=== PATIENT | male | born 1940 | race Caucasian/White ===

== ENCOUNTER → 2016-06-16 | Outpatient (CLI) | payer MEDICARE, OTHER ==
[~2016-06-16] MED LIST: *ANUSOI; ACIPHEX; ALTA10CA; ASPI81TA45; ATEN100T; CIPR500T3 PO; GLUC500T; GLUC500T3; HYOS0.378; LIPI20TA; MULTIVIT; NORV5TAB; PERCOCET PO; PRIL40CA; PROS5TAB; [UNRECOGNIZED DRUG - OTHER]
[2016-06-16 17:34] LABS: ALBUMIN 3.7 GM/DL (3.2-5.2); ANION GAP 9 MEQ/L (8-16); BLOOD UREA NITROGEN 17 MG/DL (7-18); CALCIUM LEVEL 9.2 MG/DL (8.8-10.2); CARBON DIOXIDE LEVEL 30 MEQ/L (21-32); CHLORIDE LEVEL 103 MEQ/L (98-107); GLOMERULAR FILTRATION RATE > 60.0 (>42); GLUCOSE, FASTING 175 MG/DL (83-110); MAGNESIUM LEVEL 1.8 MG/DL (1.8-2.4); PHOSPHORUS LEVEL 3.2 MG/DL (2.5-4.9); POTASSIUM SERUM 4.2 MEQ/L (3.5-5.1); SODIUM LEVEL 142 MEQ/L (136-145)
== END ==
LOC: M WUC 13:42
PROVIDERS: ATTEND Internal Medicine Cardiovascular Disease
DX: I11.9 Hypertensive heart disease without heart failure (principal); R94.31 Abnormal electrocardiogram [ECG] [EKG]

== ENCOUNTER → 2016-06-19 | Outpatient (CLI) | payer MEDICARE, BC, OTHER ==
[~2016-06-19] MED LIST changes: +ASPI1TAB24 PO; +ATEN100T PO; +ATOR40TA PO; +CHLO125TA PO; +FINA5TAB2 PO; +IRON1TAB PO; +METF500T PO; +MULT1TAB10 PO; +RAMI10CA PO; +VITA100037 PO; +VITA500T53 PO
--- NOTE | 2016-06-19 13:31 | REP ---
MRI BRAIN WITHOUT CONTRAST: HISTORY: Gait difficulty. COMPARISON: 03/13/2014. Scattered punctate areas of increased signal intensity on T2-weighted images are present in the periventricular and subcortical white matter. This represents small vessel ischemic disease. There is no intraparenchymal hemorrhage, infarct, mass or midline shift. The ventricular system and cortical sulci as well as subarachnoid space in the posterior fossa are dilated consistent with mild volume loss. There is no extracerebral collection. The sinuses are clear. IMPRESSION: 1. Minimal small vessel ischemic disease. 2. Mild volume loss. Signed by Jared Beaulieu MD 06/19/2016 01:48 P
== END ==
LOC: M RAD 11:03
PROVIDERS: ATTEND Internal Medicine Cardiovascular Disease
DX: A88.1 Epidemic vertigo (principal); I73.9 Peripheral vascular disease, unspecified

== ENCOUNTER → 2016-06-30 | Outpatient (CLI) | payer MEDICARE, BC, OTHER ==
[~2016-06-30] VITALS: Ht 180.3 cm; Wt 83.0 kg
[~2016-06-30] MED LIST changes: +PROPOFOL 200 MG/20 ML VIAL As Ordered ONE; +ePHEDrine SULFATE 25 MG/5 ML(5MG/ML) SYRINGE As Ordered ONE
--- NOTE | 2016-06-30 14:03 | ROOR ---
Patient Name: Roberth Bang Procedure Date: 06/30/2016 1:26 PM Date of : 1940 Age: 75 Room: [facility] Gender: Male Note Status: Finalized Procedure: Colonoscopy Indications: High risk colon cancer surveillance: Personal history of colonic polyps, Last colonoscopy: June 2013, Known radiation enteritis and colitis, known radiation related stricture mid sigmoid. Known radiation proctitis. Providers: Montrell GARCIA MD Referring MD: Roberth Dawson MD Requesting Provider: Medicines: Monitored Anesthesia Care Complications: No immediate complications. Procedure: Pre-Anesthesia Assessment: - The heart rate, respiratory rate, oxygen saturations, blood pressure, adequacy of pulmonary ventilation, and response to care were monitored throughout the procedure. The Colonoscope was introduced through the anus and advanced to the cecum, identified by appendiceal orifice and ileocecal valve. The colonoscopy was performed without difficulty. The patient tolerated the procedure well. The quality of the bowel preparation was good. Findings: The perianal and digital rectal examinations were normal. (Exam: Complete, Prep: Good or Excellent.) A benign-appearing, intrinsic moderate stenosis measuring 3 cm (in length) was found in the mid sigmoid colon. - This is passable only with Enteroscope (Pediatric colonoscope will not pass). Biopsies were taken with a cold forceps for histology. A 4 mm polyp was found in the cecum. The polyp was flat. The polyp was removed with a cold snare. Resection and retrieval were complete. A few medium-mouthed diverticula were found in the sigmoid colon. A few petechiae were found in the distal rectum. Impression: - Smooth benign appearing stricture in the mid sigmoid colon-at 25 cm from anal verge. - This is passable with Enteroscope (Pediatric colonoscope will not pass). Biopsied. - One 4 mm polyp in the cecum, removed with a cold snare. Resected and retrieved. - Diverticulosis in the sigmoid colon. - Moderate internal hemorrhoids and a few petechia(e) in the distal rectum suggestive of mild residual radiation proctitis. Recommendation: - Telephone endoscopist for pathology results in 2 weeks. - Observe clinical course/symptoms of colonic stricture. Surgical management for severe symptoms. Montrell Garcia MD Montrell GARCIA MD 06/30/2016 2:03:27 PM This report has been signed electronically. Number of Addenda: 0 Note Initiated On: 06/30/2016 1:26 PM Estimated Blood Loss: Estimated blood loss: none.
[2016-06-30 14:36] VITALS: BP 156/67
== END | disposition home or self-care (01) ==
LOC: M OPP 11:06
PROVIDERS: ATTEND Internal Medicine Gastroenterology
DX: Z12.11 Encounter for screening for malignant neoplasm of colon (principal); K56.69 Other intestinal obstruction; D12.0 Benign neoplasm of cecum; I35.9 Nonrheumatic aortic valve disorder, unspecified; I25.10 Atherosclerotic heart disease of native coronary artery without angina pectoris; I10 Essential (primary) hypertension; I05.9 Rheumatic mitral valve disease, unspecified; D64.9 Anemia, unspecified; Z87.891 Personal history of nicotine dependence; Z79.899 Other long term (current) drug therapy; Z79.82 Long term (current) use of aspirin; Z79.84 Long term (current) use of oral hypoglycemic drugs; Z88.8 Allergy status to other drugs, medicaments and biological substances

== ENCOUNTER 2016-08-30 08:10 | Inpatient (IN) | payer MEDICARE, BC, OTHER ==
[~2016-08-30] VITALS: Ht 177.8 cm; Wt 81.0 kg
[~2016-08-30 08:10] MED LIST changes: -PROPOFOL 200 MG/20 ML VIAL As Ordered ONE; -ePHEDrine SULFATE 25 MG/5 ML(5MG/ML) SYRINGE As Ordered ONE
[2016-08-30] MEDS ORDERED: NS 1,000 ML IV SCH (08:54)
[2016-08-30] MEDS ORDERED: ONDANSETRON 4MG/2ML VIAL (J2405) IV ONE ×2 (09:00→12:00)
[2016-08-30] MEDS: PANTOPRAZOLE 40MG INJ (PROTONIX) (C9113) IV SCH (09:00)
[2016-08-30 09:24] LABS: BASO % 0.2 % (0.0-1.0); EOS % 0.2 % (0.0-3.0); LARGE UNSTAINED CELL # 0.2 K/mm3 (0.0-0.4); LARGE UNSTAINED CELL % 2.6 % (0.0-4.0); LYMPH # 0.4 K/mm3 (1.5-4.5); LYMPH % 4.5 % (24.0-44.0); MEAN CORPUSCULAR HGB CONC 33.1 g/dl (32.0-36.5); MEAN CORPUSCULAR VOLUME 87.6 fl (80.0-96.0); MONO # 0.7 K/mm3 (0.0-0.8); MONO % 7.8 % (0.0-5.0); NEUTROPHILS # 7.3 K/mm3 (1.8-7.7); NEUTROPHILS % 84.7 % (36.0-66.0); PLATELET COUNT, AUTOMATED 182 k/mm3 (150-450); RED CELL DISTRIBUTION WIDTH 17.3 % (11.5-14.5); WHITE BLOOD COUNT 8.6 K/mm3 (4.0-10.0)
[2016-08-30 09:35] LABS: ALBUMIN 4.1 GM/DL (3.2-5.2); ALBUMIN/GLOBULIN RATIO 1.08 (1.00-1.93); ALKALINE PHOSPHATASE 54 U/L (45-117); ALT/SGPT 24 U/L (12-78); ANION GAP 8 MEQ/L (8-16); AST/SGOT 12 U/L (15-37); BILIRUBIN,DIRECT 0.4 MG/DL (0.0-0.2); BILIRUBIN,TOTAL 2.1 MG/DL (0.2-1.0); BLOOD UREA NITROGEN 22 MG/DL (7-18); CALCIUM LEVEL 9.7 MG/DL (8.8-10.2); CARBON DIOXIDE LEVEL 32 MEQ/L (21-32); CHLORIDE LEVEL 100 MEQ/L (98-107); CREATININE FOR GFR 1.23 MG/DL (0.70-1.30); GLOMERULAR FILTRATION RATE > 60.0 (>42); GLUCOSE, FASTING 218 MG/DL (83-110); POTASSIUM SERUM 3.9 MEQ/L (3.5-5.1); SODIUM LEVEL 140 MEQ/L (136-145); TOTAL PROTEIN 7.9 GM/DL (6.4-8.2)
[2016-08-30] MEDS ORDERED: GASTROGRAFIN SOLUTION 30ML PO ONE (10:29)
[2016-08-30] MEDS ORDERED: GASTROGRAFIN SOLUTION 30ML (Q9963) As Ordered ONE (10:51)
[2016-08-30] MEDS ORDERED: GASTROGRAFIN SOLUTION 30ML (Q9963) PO ONE (10:55)
[2016-08-30] MEDS ORDERED: KETOROLAC 30 MG/ML VIAL (J1885) IV ONE (13:15)
[2016-08-30] MEDS ORDERED: HEPARIN SOD (PORCINE) 5000 UNITS/ML VIAL SC SCH (14:00)
[2016-08-30] MEDS ORDERED: RANI150T PO (14:52)
[2016-08-30] MEDS: hydrALAZINE INJ 20 MG/ML VIAL IV SCH ×3 (15:00→23:00)
[2016-08-30] MEDS ORDERED: GLUCAGON FOR INJ 1 MG VIAL (J1610) SC PRN (15:15)
[2016-08-30] MEDS ORDERED: DEXTROSE 50% 50 ML SYRINGE IV PRN (15:15)
[2016-08-30] MEDS ORDERED: GLUCOSE 4 GM CHEW TABLET PO PRN (15:15)
--- NOTE | 2016-08-30 15:27 | REP ---
ABDOMEN, FLAT/UPRIGHT, PA CHEST: HISTORY: Abdominal pain. Air is present in small and large intestine. Several air-fluid levels are present. There are several minimally dilated loops of intestine. There is no pneumoperitoneum. The lungs are clear. IMPRESSION: The above findings may represent ileus or possibly early or intermittent small bowel obstruction. Signed by Jared Beaulieu MD 08/30/2016 03:30 P
--- NOTE | 2016-08-30 15:38 | HPEPDOC ---
General Date of Admission Aug 30, 2016 at 14:45 Primary Care Physician: Roberth Dawson MD Attending Physician: VALE BROOKE MD Chief Complaint The patient is a 75-year-old male admitted with a reason for visit of Small Bowel Obstruction. Source: Patient, Old records Exam Limitations: No limitations Timing/Duration: Day(s), Getting worse Severity: Severe Associated Symptoms: Nausea, Vomiting History of Present Illness This is a 75-year-old patient of Dr. Roberth Dawson with a history of coronary artery disease status post CABG, [id number] diabetes, hypertension, hyperlipidemia, and prostate cancer status post radiation therapy who presented to the ER 08/30/2016 after 4 days of nausea and vomiting. He states that he developed nausea and vomiting on , and inability to take oral intake. He had associated generalized colicky abdominal pain, 4 out of 10. Pain is nonradiating. He noted no remitting exacerbating factors, he did not try anything for treatment. He developed abdominal distention, and decided to go to the ER. Due to his radiation proctitis, he generally has chronic diarrhea , and generally has to take Imodium to avoid loose or diarrheal stools. However , he only recently had a small hard stool. He reports no recent diarrhea. He denies any fevers, chills, sweats, or sick contacts. Home Medications Scheduled (Aspirin Adult Low Dose) 81 Mg Tab, 81 MG PO BID, (Reported) (Iron) 45 Mg Tab, 65 MG PO DAILY, (Reported) Atenolol (Atenolol) 100 Mg Tab, 100 MG PO DAILY, (Reported) Atorvastatin Calcium (Atorvastatin Calcium) 40 Mg Tab, 40 MG PO QHS, (Reported) Chlorthalidone (Chlorthalidone) 12.5 Mg Halftab, 12.5 MG PO 3XW, (Reported) MON,WED,FRI Cyanocobalamin (Vitamin B12) 500 Mcg Tab, 500 MCG PO DAILY, (Reported) Finasteride (Finasteride) 5 Mg Tab, 2.5 MG PO DAILY, (Reported) Metformin Hydrochloride (Metformin HCl) 500 Mg Tab, 500 MG PO BID, (Reported) Multivitamins (Multivitamin Adults) 1 Tab Tab, 1 TAB PO DAILY, (Reported) Ramipril (Ramipril) 10 Mg Cap, 10 MG PO DAILY, (Reported) Vitamin D (Vitamin D) Unknown Strength Cap, 50,000 UNITS PO Q2WK, (Reported) WEDNESDAYS Scheduled PRN Ranitidine HCl (Ranitidine HCl) 150 Mg Tab, 1 TAB PO DAILY PRN for INDIGESTION, (Reported) Allergies Coded Allergies: Contrast Media (Verified Allergy, Intermediate, ivp dye- hives, rash, 08/30) has had gastrografin in past with no issues Propoxyphene (Unverified Adverse Reaction, Mild, UPSET STOMACH, 08/30/16) Past Medical History Medical History Past medical history: 1. Coronary artery disease status post CABG 2. Xll-jibmkcd-[id number] type 2 diabetes 3. Hypertension 4. Hypertensive heart disease without heart failure 5. Vitamin B-12 deficiency anemia 6. Vitamin D deficiency 7. Chronic anemia 8. Radiation proctitis 9. History of kidney stones 10. 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 Bilateral Inguinal hernia repair 1961 2. Right hernia repair 1975 3. Prostate biopsy 2007 4. Ocular surgery for right retinal detachment 2007 5. PCI with stent to LAD 2000 6. CABG 2003 7. Bilateral cataract surgery 2003 8. EGD for/colonoscopy 2009 9. EGD 2010 10. Cystoscopy with laser lithotripsy for left ureteral stone 2015 Family History Significant Family History: No pertinent family hx Social History * Smoker: non-smoker Alcohol: Denies Drugs: denies Recent Travel/Sick Contacts: Denies: Recent travel, Recent sick contacts Psychosocial History: No pertinent psych hx Lives with Review of Symptoms Constitutional: Denies: Chills, Fever, Malaise, Weakness, Fatigue Eyes: Denies: Vision change ENT: Denies: Head Aches Skin: Denies: Rash, Lesions Pulmonary: Denies: Dyspnea, Cough Cardiovascular: Denies: Chest Pain, Palpitations, Orthopnea Gastrointestinal: Reports: Nausea, Vomiting, Abdominal Pain, Denies: Diarrhea, Constipation Genitourinary: Denies: Dysuria Other systems 10 point review systems otherwise negative Physical Examination General Exam: Positive: Alert, Cooperative, No Acute Distress Eye Exam: Positive: Conjunctiva & lids normal, Negative: Sclera icteric ENT Exam: Positive: Atraumatic, Mucous membr. moist/pink Neck Exam: Positive: Supple, Negative: JVD, thyromegaly, Lymphadenopathy Chest Exam: Positive: Clear to auscultation, Normal air movement, Other ( midline sternotomy scar), Negative: Rales, Rhonchi, Wheezing Heart Exam: Positive: Rate Normal, Regular Rhythm, Normal S1, Normal S2, Murmurs (2/6 systolic ejection murmur) Abdomen Exam: Positive: BS Hyperactive, Soft, Negative: Tenderness Extremity Exam: Positive: Normal pulses, Negative: Clubbing, Cyanosis, Edema Skin Exam: Positive: Nl turgor and temperature, Negative: Rash, Breakdown Psych Exam: Positive: Mental status NL, Mood NL, Oriented x 3 Vital Signs Vital Signs Date Time Temp Pulse Resp B/P (MAP) Pulse Ox O2 Delivery O2 Flow Rate FiO2 08/30/16 13:40 104 87 08/30/16 13:39 153/68 (96) 08/30/16 12:39 99.7 16 08/30/16 08:16 Room Air Laboratory Data Labs 24H Laboratory Tests 2 08/30/16 09:03: White Blood Count 8.6, Red Blood Count 4.74, Hemoglobin 13.8L, Hematocrit 41.5L , Mean Corpuscular Volume 87.6, Mean Corpuscular Hemoglobin 29.0, Mean Corpuscular Hemoglobin Concent 33.1, Red Cell Distribution Width 17.3H, Platelet Count 182, Neutrophils (%) (Auto) 84.7H, Lymphocytes (%) (Auto) 4.5L, Monocytes (%) (Auto) 7.8H, Eosinophils (%) (Auto) 0.2, Basophils (%) (Auto) 0.2 , Neutrophils # (Auto) 7.3, Lymphocytes # (Auto) 0.4L, Monocytes # (Auto) 0.7, Eosinophils # (Auto) 0.0, Basophils # (Auto) 0.0, Large Unclassified Cells % 2.6 , Large Unclassified Cells # 0.2, Anion Gap 8, Glomerular Filtration Rate > 60.0 , Lactic Acid Level 2.6*H, Calcium Level 9.7, Aspartate Amino Transf (AST/SGOT) 12L, Alanine Aminotransferase (ALT/SGPT) 24, Alkaline Phosphatase 54, Total Bilirubin 2.1H, Direct Bilirubin 0.4H, Total Protein 7.9, Albumin 4.1, Albumin/ Globulin Ratio 1.08, Lipase 79 CBC/BMP Laboratory Tests 08/30/16 09:03 Red Blood Count 4.74, Mean Corpuscular Volume 87.6, Mean Corpuscular Hemoglobin 29.0, Mean Corpuscular Hemoglobin Concent 33.1, Red Cell Distribution Width 17.3 H, Neutrophils (%) (Auto) 84.7 H, Lymphocytes (%) (Auto) 4.5 L, Monocytes ( %) (Auto) 7.8 H, Eosinophils (%) (Auto) 0.2, Basophils (%) (Auto) 0.2, Neutrophils # (Auto) 7.3, Lymphocytes # (Auto) 0.4 L, Monocytes # (Auto) 0.7, Eosinophils # (Auto) 0.0, Basophils # (Auto) 0.0 Assessment/Plan This is a 75-year-old gentleman admitted to the hospital 08/30/2016 for SBO Problems (1) SBO (small bowel obstruction) Status: Acute Problem Text: Multiple dilated loops of small bowel with air-fluid level. Patient has history of radiation therapy for prostate cancer, otherwise no history of abdominal surgery. Nonacute abdomen. No fevers or leukocytosis. Dr. Evans following. Patient has mild lactic acidosis likely secondary to dehydration and no by mouth intake since . He has no signs or symptoms of sepsis, thus sepsis protocol does not apply in his case. -Admit to PCU due to need for IV hypertensive medications as patient is unable to take by mouth meds -NG tube for decompression -Nothing by mouth -Surgery following -Continue IV fluids (2) HTN (hypertension) Status: Chronic Problem Text: Unable to take by mouth meds. Nursing is unable to do IV blood pressure management on the floor. Given patient's strong cardiac history, it would not be prudent to continue holding his blood pressure medicines. -Scheduled IV hydralazine 10 mg every 4 hours with holding parameters. Blood pressure is less than 150 systolic (3) HLD (hyperlipidemia) Status: Chronic Problem Text: Holding statin, as patient is nothing by mouth, and has NG tube in place (4) T2DM (type 2 diabetes mellitus) Problem Text: Holding metformin as patient currently has NG tube in place -Sliding scale insulin (5) Ureterolithiasis Status: Acute Problem Text: History of laser lithotripsy. Current nephrolithiasis, with 4 mm , nonobstructing stone with some hydronephrosis. Currently no symptoms. -Start Flomax after patient is taking oral medication - Would need to consult urology only if patient develops worsening symptoms or infected urine Plan / VTE VTE Prophylaxis Ordered?: Yes Plan Disposition Pending resolution of SBO, tolerating diet VALE BROOKE MD Aug 30, 2016 15:38
[2016-08-30] MEDS ORDERED: ONDANSETRON 4MG/2ML VIAL (J2405) IV PRN (15:45)
[2016-08-30] MEDS ORDERED: MORPHINE 2 MG/ML 1ML SYRINGE IV PRN (15:45)
[2016-08-30] MEDS ORDERED: ACETAMINOPHEN 650 MG SUPP PR PRN (15:45)
[2016-08-30] MEDS ORDERED: HumaLOG INSULIN (NovoLOG) PER UNIT SC SCH ×2 (17:30→21:00)
[2016-08-30 18:00] VITALS: BP 158/56
[2016-08-30] MEDS: HumaLOG INSULIN (NovoLOG) PER UNIT SC SCH (18:53)
--- NOTE | 2016-08-30 19:50 | REPUSA ---
Clinical statement: tube placement. Comparison: None. Findings: 2 views of the abdomen were obtained. A nasogastric tube is appreciated, with the tip in th e distal stomach. A nonobstructive bowel gas pattern is noted. There is normal amount of stool appre ciated within the colon. There is no free air. There are no abnormal masses or calcifications. The os seous structures and soft tissues are unremarkable. Impression: No acute finding. Nasogastric tube tip is within the distal stomach.
[2016-08-30 20:11] VITALS: BP 126/64
[2016-08-30] MEDS: NS 1,000 ML IV SCH (21:00)
[2016-08-31] VITALS (9 sets, daily range): BP systolic 118–170; BP diastolic 58–79
[2016-08-31] MEDS: HumaLOG INSULIN (NovoLOG) PER UNIT SC SCH ×5 (00:23→23:59)
[2016-08-31] MEDS: hydrALAZINE INJ 20 MG/ML VIAL IV SCH ×6 (03:00→23:00)
[2016-08-31 05:24] LABS: ANION GAP 6 MEQ/L (8-16); BLOOD UREA NITROGEN 30 MG/DL (7-18); CALCIUM LEVEL 8.6 MG/DL (8.8-10.2); CARBON DIOXIDE LEVEL 35 MEQ/L (21-32); CHLORIDE LEVEL 103 MEQ/L (98-107); CREATININE FOR GFR 1.17 MG/DL (0.70-1.30); GLOMERULAR FILTRATION RATE > 60.0 (>42); GLUCOSE, FASTING 139 MG/DL (83-110); POTASSIUM SERUM 3.5 MEQ/L (3.5-5.1); SODIUM LEVEL 144 MEQ/L (136-145)
[2016-08-31 05:43] LABS: DIFF SLIDE NUMBER 74; MEAN CORPUSCULAR HGB CONC 30.9 g/dl (32.0-36.5); MEAN CORPUSCULAR VOLUME 87.4 fl (80.0-96.0); PLATELET COUNT, AUTOMATED 143 k/mm3 (150-450); RED CELL DISTRIBUTION WIDTH 17.5 % (11.5-14.5); WHITE BLOOD COUNT 2.4 K/mm3 (4.0-10.0)
[2016-08-31] MEDS: NS 1,000 ML IV SCH ×2 (06:14→16:10)
--- NOTE | 2016-08-31 06:16 | REP ---
CT ABDOMEN AND PELVIS WITHOUT CONTRAST: HISTORY: Bowel obstruction. COMPARISON: 01/14/2016. Calcification is present in the gallbladder consistent with cholelithiasis. The pancreas is atrophic. A 3.7 cm cyst is present in the left kidney. A 4 cm calculus is present in the left ureter at the level of the L4-5 intervertebral disc. There is moderate dilatation of the left renal collecting system and ureter. The liver, spleen, adrenal glands and right kidney are normal in appearance. There is mild distention of the stomach. There are multiple dilated loops of proximal and mid small intestine. The distal and terminal ileum are normal in caliber. There is no mass, adenopathy or free fluid. Calcifications are present in the prostate gland. Diverticula are present in the descending and sigmoid colon. A 1.6 cm calcification is present along the medial aspect of the sigmoid colon. This likely represents a calcified mesenteric lymph node. Small areas of atelectasis or infiltrate are present in the lower lobes. IMPRESSION: 1. Cholelithiasis. 2. 3.7 cm left renal cyst. 3. There is a 4 mm calculus in the left ureter. There is moderate dilatation of the left renal collecting system and ureter. 4. There are dilated loops of small intestine consistent with small bowel obstruction or possibly ileus. 5. Diverticulosis. 6. There are small areas of atelectasis or infiltrate in the lower lobes. Signed by Jared Beaulieu MD 08/31/2016 08:18 A
[2016-08-31 06:37] LABS: BANDS 11 % (< 11); EOSINOPHILS 2 % (0-5)
[2016-08-31 06:39] LABS: ANISOCYTOSIS 1+
--- NOTE | 2016-08-31 08:27 | CR ---
DATE OF CONSULTATION: 08/30/2016 REASON FOR CONSULTATION: Small bowel obstruction. HISTORY OF PRESENT ILLNESS: The patient is a 75-year-old male who has abdominal distension, nausea, vomiting since last . He presented to the emergency room on the morning of 08/30 with these symptoms. There is concern for possible small bowel obstruction. The ER attending gave me a call and had me review his imaging from home. I agreed that it does look like a small bowel obstruction and recommended admission for treatment. He had an NG tube placed prior to me seeing him and has already had over a liter and a half of brown liquid removed. Currently he has no abdominal pain. He has not had any pain at all. He has just had this abdominal distension, nausea and lots of episodes of vomiting. No fevers, sweats or chills at home. Did have the small bowel movement less than the size of a walnut this morning. No other significant bowel movements in the past few days. No flatus. No history of abdominal bowel obstructions. He has had radiation for prostate cancer in the past and right inguinal hernia repair in 74 and bilateral inguinal hernia at 60. No other abdominal surgeries. PAST MEDICAL HISTORY: Coronary artery disease. Type 2 diabetes. Hypertension. Radiation proctitis. History of kidney stones. PAST SURGICAL HISTORY: Bilateral inguinal hernia repairs. Prostate biopsy. Ocular surgery for retinal detachment. Open heart surgery. Bilateral cataract surgery. Multiple EGDs and colonoscopies. FAMILY HISTORY: Noncontributory. SOCIAL HISTORY: Denies drug, alcohol, tobacco abuse. REVIEW OF SYSTEMS: Pertinent positives as listed in history of present illness. ALLERGIES: CONTRAST MEDIA. PROPOXYPHENE. HOME MEDS: Please see medical record. PHYSICAL EXAM: General: Alert and oriented times three, in no acute distress. Vitals: Temperature 99.7, pulse 100, respirations 16, blood pressure 143/94, pulse ox 92% on room air. HEENT: Pupils equal, round and react to light and accommodation. Heart: S1, S2, regular rate and rhythm. Lungs: Clear to auscultation bilaterally. Abdomen: Soft, distended and nontender. No visible hernias. No bowel wall hernias. No signs of rebound, guarding or peritonitis. Extremities: No clubbing, cyanosis or edema. LABORATORY DATA: White count 8.6, hemoglobin 13.8, platelets 182, potassium 3.9, creatinine 1.23. IMAGING STUDIES: CT abdomen and pelvis with contrast shows cholelithiasis, 3.7 cm left renal cyst, 4 mm calculus in the left ureter. Moderate dilatation of left renal collecting system and ureter. Dilated loops of small intestine consistent with small bowel obstruction, possible ileus, diverticulosis. ASSESSMENT/PLAN: Patient is a 75-year-old male who presents with abdominal distension, nausea, vomiting and CT findings consistent with likely small bowel obstruction. This is likely secondary to adhesions versus stricture from his previous prostate radiation versus internal hernia. Recommendation is to continue with NG tube placement and IV fluids. Will continue to monitor the patient closely over the next 48 to 72 hours. If his symptoms resolve, NG tube will be removed and he will be advanced to regular diet and discharged home. If for some reason his symptoms get worse, he may require surgery to determine the cause of the obstruction and relieve it.
--- NOTE | 2016-08-31 08:28 | REP ---
ABDOMEN, FLAT UPRIGHT; PA CHEST: HISTORY: Bowel obstruction. COMPARISON: 08/30/2016. Air is present in small and large intestine. There are several loops of minimally dilated small intestine. These are decreased in caliber compared to the previous study. Several air fluid levels are present. There is no pneumoperitoneum. An NG tube is present. The lungs are clear. IMPRESSION: There are several loops of minimally dilated small intestine that are decreased in caliber compared to the previous study. This represents resolving small bowel obstruction or ileus. A repeat examination is recommended for further evaluation. Signed by Jared Beaulieu MD 08/31/2016 08:34 A
[2016-08-31] MEDS: PANTOPRAZOLE 40MG INJ (PROTONIX) (C9113) IV SCH (08:30)
[2016-08-31] MEDS: ERTAPENEM SODIUM 1 GM in NS MINI-BAG PLUS 50 ML IV SCH (08:30)
--- NOTE | 2016-08-31 08:59 | IPNPDOC ---
Subjective Date Seen The patient was seen on 08/31/16. Subjective Chief Complaint/HPI The patient is a 75-year-old male admitted with a reason for visit of Small Bowel Obstruction. Events since last encounter Pt this morning is anxious about the potential need for surgery. He states that his abd has no pain, he is feeling better since the NG was placed. He reports that his abd is also much less distended since the NG was placed, feels it appears normal to him now. General: Denies: Fatigue Constitutional: Reports: Fever, Denies: Chills Pulmonary: Denies: Dyspnea, Cough Cardiovascular: Denies: Chest Pain, Palpitations Gastrointestinal: Denies: Nausea, Diarrhea Neurological: Reports: Weakness Psych: Reports: Mood Normal Objective Physical Examination General Exam: Positive: Alert, Cooperative, No Acute Distress Eye Exam: Positive: Sclera icteric Neck Exam: Positive: Supple, JVD, thyromegaly, Negative: Lymphadenopathy Chest Exam: Positive: Clear to auscultation, Normal air movement, Other ( midline sternotomy scar), Negative: Rales, Rhonchi, Wheezing Heart Exam: Positive: Rate Normal, Regular Rhythm, Normal S1, Normal S2, Murmurs (2/6 systolic ejection murmur) Abdomen Exam: Positive: BS Hypoactive, Soft, Negative: BS Hyperactive, Tenderness Extremity Exam: Positive: Normal pulses, Negative: Clubbing, Cyanosis, Edema Skin Exam: Positive: Nl turgor and temperature, Negative: Rash, Breakdown Psych Exam: Positive: Mental status NL, Mood NL, Oriented x 3 Assessment /Plan Problems (1) SBO (small bowel obstruction) Status: Acute Problem Text: 08/31 - Repeat XRay this morning reveals improvement in SBO, pt with NG in place. NPO, WBC now suggest leukopenia, + bandemia Tmax 101.8 overnight. pulse increased from 80-90s to 120s Given worsening condition, patient urgently brought to OR by Dr. Gunn. Continue IVF. Ertapenam added this morning 08/30 Multiple dilated loops of small bowel with air-fluid level. Patient has history of radiation therapy for prostate cancer, otherwise no history of abdominal surgery. Nonacute abdomen. No fevers or leukocytosis. Dr. Evans following. Patient has mild lactic acidosis likely secondary to dehydration and no by mouth intake since . He has no signs or symptoms of sepsis, thus sepsis protocol does not apply in his case. -Admit to PCU due to need for IV hypertensive medications as patient is unable to take by mouth meds -NG tube for decompression -Nothing by mouth -Surgery following -Continue IV fluids (2) HTN (hypertension) Status: Chronic Problem Text: plan restarting regimen [id number] 10/atenolol 100 08/31 - Pressures stable off medications 08/30 - Unable to take by mouth meds. Nursing is unable to do IV blood pressure management on the floor. Given patient's strong cardiac history, it would not be prudent to continue holding his blood pressure medicines. (3) HLD (hyperlipidemia) Status: Chronic Problem Text: Holding statin, as patient is nothing by mouth, and has NG tube in place (4) T2DM (type 2 diabetes mellitus) Problem Text: Holding metformin as patient currently has NG tube in place -Sliding scale insulin (5) Ureterolithiasis Status: Acute Problem Text: History of laser lithotripsy. Current nephrolithiasis, with 4 mm , nonobstructing stone with some hydronephrosis. Currently no symptoms. -Start Flomax after patient is taking oral medication - Would need to consult urology only if patient develops worsening symptoms or infected urine (6) CAD (coronary artery disease) Status: Chronic Response to Treatment: Stable Problem Text: s/p CABG 04/2004 no active symptoms-no h/o CHF 01/2015 NST s reversibility-Joe 05/2016 TTE grade diastolic dysfx, LAE-Joe restart BB when post-op (preop atenolol 100 QD) Plan/VTE VTE Prophylaxis Ordered?: Yes VS, I&O, 24H, Fishbone Vital Signs/I&O Vital Signs Date Time Temp Pulse Resp B/P (MAP) Pulse Ox O2 Delivery O2 Flow Rate FiO2 08/31/16 07:20 97.9 102 20 121/58 (79) 92 Room Air I&O- Last 24 Hours up to 6 AM 08/31/16 06:00 Intake Total 2130 ml Output Total 2975 ml Balance -845 ml Laboratory Data 24H LABS Laboratory Tests 2 08/30/16 09:03: White Blood Count 8.6, Red Blood Count 4.74, Hemoglobin 13.8L, Hematocrit 41.5L , Mean Corpuscular Volume 87.6, Mean Corpuscular Hemoglobin 29.0, Mean Corpuscular Hemoglobin Concent 33.1, Red Cell Distribution Width 17.3H, Platelet Count 182, Neutrophils (%) (Auto) 84.7H, Lymphocytes (%) (Auto) 4.5L, Monocytes (%) (Auto) 7.8H, Eosinophils (%) (Auto) 0.2, Basophils (%) (Auto) 0.2 , Neutrophils # (Auto) 7.3, Lymphocytes # (Auto) 0.4L, Monocytes # (Auto) 0.7, Eosinophils # (Auto) 0.0, Basophils # (Auto) 0.0, Large Unclassified Cells % 2.6 , Large Unclassified Cells # 0.2, Anion Gap 8, Glomerular Filtration Rate > 60.0 , Lactic Acid Level 2.6*H, Calcium Level 9.7, Aspartate Amino Transf (AST/SGOT) 12L, Alanine Aminotransferase (ALT/SGPT) 24, Alkaline Phosphatase 54, Total Bilirubin 2.1H, Direct Bilirubin 0.4H, Total Protein 7.9, Albumin 4.1, Albumin/ Globulin Ratio 1.08, Lipase 79 08/30/16 17:06: Lactic Acid Followup at 4 Hours 2.3*H 08/30/16 18:10: Bedside Glucose (Misc Panel) 179H 08/30/16 23:58: Bedside Glucose (Misc Panel) 173H 08/31/16 04:39: Neutrophils 46, Band Neutrophils 11, Lymphocytes (Manual) 28, Monocytes (Manual ) 11H, Eosinophils (Manual) 2, Atypical Lymphocytes 2, Platelet Estimate NORMAL , Anisocytosis 1+, Anion Gap 6L, Glomerular Filtration Rate > 60.0, Blood Urea Nitrogen 30H, Creatinine 1.17, Sodium Level 144, Potassium Level 3.5, Chloride Level 103, Carbon Dioxide Level 35H, Calcium Level 8.6L 08/31/16 06:35: Lactic Acid Level 1.2 CBC/BMP Laboratory Tests 08/30/16 09:03 Red Blood Count 4.74, Mean Corpuscular Volume 87.6, Mean Corpuscular Hemoglobin 29.0, Mean Corpuscular Hemoglobin Concent 33.1, Red Cell Distribution Width 17.3 H, Neutrophils (%) (Auto) 84.7 H, Lymphocytes (%) (Auto) 4.5 L, Monocytes ( %) (Auto) 7.8 H, Eosinophils (%) (Auto) 0.2, Basophils (%) (Auto) 0.2, Neutrophils # (Auto) 7.3, Lymphocytes # (Auto) 0.4 L, Monocytes # (Auto) 0.7, Eosinophils # (Auto) 0.0, Basophils # (Auto) 0.0 08/31/16 04:39 Red Blood Count 4.39, Mean Corpuscular Volume 87.4, Mean Corpuscular Hemoglobin 27.0, Mean Corpuscular Hemoglobin Concent 30.9 L, Red Cell Distribution Width 17.5 H, Calcium Level 8.6 L ZAIRE RUEDA PA-C August 31, 2016 08:59 Leobardo Lester M.D. August 31, 2016 14:30
[2016-08-31] MEDS ORDERED: PROPOFOL 200 MG/20 ML VIAL As Ordered ONE (13:35)
[2016-08-31] MEDS ORDERED: LIDOCAINE 2% INJ 100 MG/5 ML SDV (FOR ANES.) As Ordered ONE (13:35)
[2016-08-31] MEDS ORDERED: ROCURONIUM BROMIDE 50 MG/5 ML VIAL As Ordered ONE (13:35)
[2016-08-31] MEDS ORDERED: MIDAZOLAM INJ 2 MG/2 ML VIAL (J2250) As Ordered ONE (13:35)
[2016-08-31] MEDS ORDERED: fentaNYL 250 MCG/5 ML INJECTION (J3010) As Ordered ONE (13:35)
[2016-08-31] MEDS ORDERED: PHENYLephrine HCL 500 MCG/5 ML (100MCG/ML) SYRINGE (J2370) As Ordered ONE ×2 (13:35→13:37)
[2016-08-31] MEDS ORDERED: ONDANSETRON 4MG/2ML VIAL (J2405) As Ordered ONE (13:54)
[2016-08-31] MEDS ORDERED: SUGAMMADEX SODIUM 500 MG/5 ML VIAL (BRIDION) As Ordered ONE (13:55)
[2016-08-31] MEDS ORDERED: ONDANSETRON 4MG/2ML VIAL (J2405) IV PRN (14:45)
[2016-08-31] MEDS ORDERED: fentaNYL 100 MCG/2 ML INJECTION (J3010) IV PRN (14:45)
[2016-08-31] MEDS ORDERED: HYDROmorphone HCL 1 MG/ML SYRINGE (J1170) IV PRN (14:45)
[2016-08-31] MEDS ORDERED: PERCOCET 5MG/325MG TAB PO PRN (14:45)
[2016-08-31] MEDS ORDERED: LR 1,000 ML IV SCH (14:45)
--- NOTE | 2016-08-31 21:58 | RO ---
DATE OF PROCEDURE: 08/31/2016 PREOPERATIVE DIAGNOSIS: Small bowel obstruction. POSTOPERATIVE DIAGNOSIS: Small bowel obstruction secondary to internal hernia. OPERATIVE PROCEDURE: Diagnostic laparoscopy. SURGEON: Davide Gunn MD LABORER CARPENTRY DOCK: None ANESTHESIA: General. ESTIMATED BLOOD LOSS: 5 mL COMPLICATIONS: None. INDICATIONS FOR PROCEDURE: The patient is a 75-year-old male who presents with a 4-day history of nausea, vomiting, abdominal distension. Early this morning he had tachycardia, fevers, bandemia. With those new findings, the recommendation was to the plan for diagnostic laparoscopy, possible exploratory laparotomy. Risks and the procedure not limited but including bleeding, infection, hernia formation, damage to surrounding structures, need further surgery discussed in detail with the patient. Informed consent was obtained and the procedure was planned. DESCRIPTION OF PROCEDURE: The patient was brought back to operating room 2 and after sufficient sedation the abdomen was sterilely prepped and draped. Next, a time-out was done to confirm proper patient and proper procedure. Following that a 5 mm incision made in left lower quadrant. Veress needle was inserted and was insufflated to 50 mmHg. Next, the Veress needle was removed, and 5 mm port was used to gain access the abdomen. Once the abdomen was entered, there were multiple dilated loops of small bowel. Another 5 mm port was placed in the left lateral abdomen. Small bowel was traced starting from the terminal ileum, which was decompressed. This started to trace backwards and there is was a clear transition zone, transition fro dilated down dilated bowel. At this point, there was an area of stricturing that appeared to have relieved itself somehow just prior surgery. It was an area that was edematous and appeared to likely have had a band crossing over it. Pictures were taken and placed in the chart. I continued to run the bowel proximally. No other signs of stricture or scar tissue were identified. The abdomen was then desufflated. Two skin incisions were closed with #4-0 Vicryl subcuticular sutures. The abdomen was cleaned and dried. Steri-Strips, 4 x 4 and tape were applied this ending the procedure.
[2016-09-01] VITALS (7 sets, daily range): BP systolic 134–150; BP diastolic 66–74
[2016-09-01] MEDS: NS 1,000 ML IV SCH
[2016-09-01] MEDS: hydrALAZINE INJ 20 MG/ML VIAL IV SCH ×5 (03:00→19:46)
[2016-09-01] MEDS: HumaLOG INSULIN (NovoLOG) PER UNIT SC SCH ×2 (06:00→12:00)
[2016-09-01 06:20] LABS: DIFF SLIDE NUMBER 47; MEAN CORPUSCULAR HEMOGLOBIN 28.3 pg (27.0-33.0); MEAN CORPUSCULAR HGB CONC 30.7 g/dl (32.0-36.5); PLATELET COUNT, AUTOMATED 116 k/mm3 (150-450); RED CELL DISTRIBUTION WIDTH 17.2 % (11.5-14.5); WHITE BLOOD COUNT 4.7 K/mm3 (4.0-10.0)
[2016-09-01 06:23] LABS: MEAN CORPUSCULAR VOLUME 89.9 fl (80.0-96.0)
[2016-09-01 06:24] LABS: ANION GAP 8 MEQ/L (8-16); BLOOD UREA NITROGEN 25 MG/DL (7-18); CALCIUM LEVEL 7.6 MG/DL (8.8-10.2); CARBON DIOXIDE LEVEL 30 MEQ/L (21-32); CHLORIDE LEVEL 111 MEQ/L (98-107); CREATININE FOR GFR 0.96 MG/DL (0.70-1.30); GLOMERULAR FILTRATION RATE > 60.0 (>42); GLUCOSE, FASTING 114 MG/DL (83-110); POTASSIUM SERUM 3.6 MEQ/L (3.5-5.1); SODIUM LEVEL 149 MEQ/L (136-145)
[2016-09-01 06:58] LABS: BANDS 13 % (< 11); EOSINOPHILS 3 % (0-5)
[2016-09-01 07:00] LABS: ANISOCYTOSIS 1+
[2016-09-01] MEDS: ERTAPENEM SODIUM 1 GM in NS MINI-BAG PLUS 50 ML IV SCH (08:00)
[2016-09-01] MEDS: PANTOPRAZOLE 40MG INJ (PROTONIX) (C9113) IV SCH (08:17)
--- NOTE | 2016-09-01 10:55 | IPNPDOC ---
Subjective Date Seen The patient was seen on 09/01/16. Subjective Chief Complaint/HPI The patient is a 75-year-old male admitted with a reason for visit of Small Bowel Obstruction. Events since last encounter Pt this morning is doing really well. He states that he has had 2 BM, he doesn 't have any abd pain. Denies nausea, nursing plans to remove the NG tube very soon, per Dr Gunn's orders. He is anxious about the rising water levels on the [place] is [place] sits on. General: Denies: Fatigue Constitutional: Denies: Chills, Fever Pulmonary: Denies: Dyspnea, Cough Cardiovascular: Denies: Chest Pain, Palpitations Gastrointestinal: Denies: Nausea, Vomiting, Abdominal Pain, Diarrhea Neurological: Denies: Weakness Psych: Reports: Mood Normal Objective Physical Examination General Exam: Positive: Alert, Cooperative, No Acute Distress Eye Exam: Positive: Sclera icteric Neck Exam: Positive: Supple, Negative: Lymphadenopathy Chest Exam: Positive: Clear to auscultation, Normal air movement, Other ( midline sternotomy scar), Negative: Rales, Rhonchi, Wheezing Heart Exam: Positive: Rate Normal, Regular Rhythm, Normal S1, Normal S2, Murmurs (2/6 systolic ejection murmur) Abdomen Exam: Positive: BS Hypoactive, Soft, Negative: BS Hyperactive, Tenderness Extremity Exam: Positive: Normal pulses, Negative: Clubbing, Cyanosis, Edema Skin Exam: Positive: Nl turgor and temperature, Negative: Rash, Breakdown Psych Exam: Positive: Mental status NL, Mood NL, Oriented x 3 Assessment /Plan Problems (1) SBO (small bowel obstruction) Status: Acute Problem Text: ertapenem D@ 09/01 Pt went to the OR yesterday with Dr Gunn had laparoscopy with small area of twisted bowel which was released. Pt now moving his bowels. NG to be d/c. TMax 100, HR improved. WBC 4.7, + bandemia. Cont with Ertapenam. 08/31 - Repeat XRay this morning reveals improvement in SBO, pt with NG in place. NPO, WBC now suggest leukopenia, + bandemia Tmax 101.8 overnight. pulse increased from 80-90s to 120s Given worsening condition, patient urgently brought to OR by Dr. Gunn. Continue IVF. Ertapenam added this morning 08/30 Multiple dilated loops of small bowel with air-fluid level. Patient has history of radiation therapy for prostate cancer, otherwise no history of abdominal surgery. Nonacute abdomen. No fevers or leukocytosis. Dr. Evans following. Patient has mild lactic acidosis likely secondary to dehydration and no by mouth intake since . He has no signs or symptoms of sepsis, thus sepsis protocol does not apply in his case. -Admit to PCU due to need for IV hypertensive medications as patient is unable to take by mouth meds -NG tube for decompression -Nothing by mouth -Surgery following -Continue IV fluids (2) HTN (hypertension) Status: Chronic Problem Text: 09/01 - will resume oral meds this morning since NG d/c'd 08/31 - Pressures stable off medications, plan restarting regimen post-op- ramipril 10/atenolol 100 08/30 - Unable to take by mouth meds. Nursing is unable to do IV blood pressure management on the floor. Given patient's strong cardiac history, it would not be prudent to continue holding his blood pressure medicines. (3) HLD (hyperlipidemia) Status: Chronic Problem Text: Holding statin, as patient is nothing by mouth, and has NG tube in place (4) T2DM (type 2 diabetes mellitus) Problem Text: Holding metformin as patient currently has NG tube in place -Sliding scale insulin (5) Ureterolithiasis Status: Acute Problem Text: History of laser lithotripsy. Current nephrolithiasis, with 4 mm , nonobstructing stone with some hydronephrosis. Currently no symptoms. -Start Flomax after patient is taking oral medication - Would need to consult urology only if patient develops worsening symptoms or infected urine (6) CAD (coronary artery disease) Status: Chronic Response to Treatment: Stable Problem Text: s/p CABG 04/2004 no active symptoms-no h/o CHF 01/2015 NST s reversibility-Joe 05/2016 TTE grade diastolic dysfx, LAE-Joe restart BB when post-op (preop atenolol 100 QD) Plan/VTE VTE Prophylaxis Ordered?: Yes VS, I&O, 24H, Fishbone Vital Signs/I&O Vital Signs Date Time Temp Pulse Resp B/P (MAP) Pulse Ox O2 Delivery O2 Flow Rate FiO2 09/01/16 07:40 Nasal Cannula 2.0 09/01/16 07:30 98.8 89 20 150/70 (96) 96 08/31/16 14:35 100 I&O- Last 24 Hours up to 6 AM 09/01/16 06:00 Intake Total 2250 ml Output Total 2103 ml Balance 147 ml Laboratory Data 24H LABS Laboratory Tests 2 08/31/16 11:18: Bedside Glucose (Misc Panel) 127H 08/31/16 14:48: Bedside Glucose (Misc Panel) 127H 08/31/16 17:37: Bedside Glucose (Misc Panel) 135H 08/31/16 23:41: Bedside Glucose (Misc Panel) 142H 09/01/16 05:54: Neutrophils 62, Band Neutrophils 13H, Lymphocytes (Manual) 12L, Monocytes ( Manual) 6, Eosinophils (Manual) 3, Myelocytes 1H, Atypical Lymphocytes 3, Platelet Estimate DECREASED, Anisocytosis 1+, Anion Gap 8, Glomerular Filtration Rate > 60.0, Blood Urea Nitrogen 25H, Creatinine 0.96, Sodium Level 149H, Potassium Level 3.6, Chloride Level 111H, Carbon Dioxide Level 30, Calcium Level 7.6L CBC/BMP Laboratory Tests 09/01/16 05:54 Red Blood Count 4.28 L, Mean Corpuscular Volume 89.9, Mean Corpuscular Hemoglobin 28.3, Mean Corpuscular Hemoglobin Concent 30.7 L, Red Cell Distribution Width 17.2 H, Calcium Level 7.6 L ZAIER RUEDA PA-C September 01, 2016 10:55 Leobardo Lester M.D. September 01, 2016 14:03
[2016-09-01] MEDS: ATENOLOL 50 MG TAB PO SCH (12:29)
[2016-09-01] MEDS: RAMIPRIL 5 MG CAP PO SCH (12:29)
[2016-09-02 06:00] VITALS: BP 141/72
[2016-09-02 06:48] LABS: MEAN CORPUSCULAR HEMOGLOBIN 27.5 pg (27.0-33.0); MEAN CORPUSCULAR HGB CONC 30.8 g/dl (32.0-36.5); MEAN CORPUSCULAR VOLUME 89.4 fl (80.0-96.0); PLATELET COUNT, AUTOMATED 147 k/mm3 (150-450); RED CELL DISTRIBUTION WIDTH 17.1 % (11.5-14.5); WHITE BLOOD COUNT 4.4 K/mm3 (4.0-10.0)
[2016-09-02 07:13] LABS: ANION GAP 4 MEQ/L (8-16); BLOOD UREA NITROGEN 20 MG/DL (7-18); CALCIUM LEVEL 8.4 MG/DL (8.8-10.2); CARBON DIOXIDE LEVEL 33 MEQ/L (21-32); CHLORIDE LEVEL 109 MEQ/L (98-107); CREATININE FOR GFR 0.88 MG/DL (0.70-1.30); GLOMERULAR FILTRATION RATE > 60.0 (>42); GLUCOSE, FASTING 112 MG/DL (83-110); POTASSIUM SERUM 3.5 MEQ/L (3.5-5.1); SODIUM LEVEL 146 MEQ/L (136-145)
[2016-09-02 08:28] LABS: DIFF SLIDE NUMBER 32
[2016-09-02] MEDS: PANTOPRAZOLE 40MG INJ (PROTONIX) (C9113) IV SCH (08:42)
[2016-09-02] MEDS: ERTAPENEM SODIUM 1 GM in NS MINI-BAG PLUS 50 ML IV SCH (08:42)
[2016-09-02 08:43] VITALS: BP 141/72
[2016-09-02] MEDS: ATENOLOL 50 MG TAB PO SCH (08:43)
[2016-09-02] MEDS: RAMIPRIL 5 MG CAP PO SCH (08:43)
[2016-09-02 09:39] LABS: ANISOCYTOSIS 1+; EOSINOPHILS 4 % (0-5)
[2016-09-02 09:41] LABS: ACANTHOCYTES 1+
--- NOTE | 2016-09-17 23:59 | DSES ---
DATE OF ADMISSION: 08/30/2016 DATE OF DISCHARGE: 09/02/2016 PRIMARY CARE PHYSICIAN: Dr. Dawson CONSULTANTS: Dr. Davide Gunn HISTORY: This is a 75-year-old male patient who presented to [facility] Emergency Room after 4 days of nausea and vomiting, difficulty with oral intake, abdominal pain, nonradiating. Upon development of the abdominal pain, he decided to go to the emergency room. He notes that he does chronically have diarrhea and generally takes Imodium to avoid the loose stools. Recently started having small hard stools and no recent diarrhea. He was admitted to the hospital for small-bowel obstruction. He was afebrile without leukocytosis at the time of admission. Secondary to his cardiac history, he was admitted to the progressive care unit (PCU), as he was made nothing by mouth, and for the anticipation of needing antihypertensive intravenous (IV) medications. During his hospital course, he became acutely ill with a drop in his white blood cell count and febrile. Dr. Gunn, who had been following the patient, opted to bring the patient to the operating room for further investigation, as he felt as though there potentially could be a perforation present secondary to the obstruction. Patient underwent a diagnostic laparoscopy on August 31 with a postoperative diagnosis of small-bowel obstruction secondary to an internal hernia. This was identified and repaired in the operating room. Patient did tolerate the procedure well and was returned to the progressive care unit, where he began to pass gas and ultimately had a bowel movement. His nasogastric (NG) tube was able to be discontinued, and he began taking in oral food without difficulty. He therefore was subsequently discharged home on September 02 in good condition. His was at home for support. He felt comfortable in terms of his discharge. DISCHARGE DIAGNOSES: 1. Small-bowel obstruction. 2. Hypertension. 3. Hyperlipidemia. 4. Diabetes mellitus, type 2. 5. Coronary artery disease. DISCHARGE MEDICATIONS: - aspirin 81 mg twice daily - atenolol 100 mg daily - atorvastatin 40 mg before bed - B12 at 500 mcg daily - finasteride 2.5 mg daily - metformin 500 mg twice a day - multivitamin one tablet daily - ramipril 10 mg by mouth daily - ranitidine 150 mg daily as needed for indigestion - vitamin D 50,000 units every other week DISCHARGE PLAN: To followup with Dr. Dawson in one week. Activity should be as tolerated. DIET: Low-cholesterol, no added salt. He should followup with Dr. Gunn per his request.
== END 2016-09-02 12:45 | disposition home or self-care (01) | DRG 358 ==
LOC: M ED 08:55 → M ED INP 14:45 → M PCU 17:48 → M MSPAV 09-01 20:32
PROVIDERS: ADMIT Family Medicine; ATTEND Family Medicine
PROC: 0WJG4ZZ Inspection of Peritoneal Cavity, Percutaneous Endoscopic Approach (ICD-10-PCS; principal; 2016-08-31 08:37)
DX: K45.0 Other specified abdominal hernia with obstruction, without gangrene (principal); I11.9 Hypertensive heart disease without heart failure; N21.1 Calculus in urethra; E53.8 Deficiency of other specified B group vitamins; E78.5 Hyperlipidemia, unspecified; E55.9 Vitamin D deficiency, unspecified; E11.9 Type 2 diabetes mellitus without complications; I25.10 Atherosclerotic heart disease of native coronary artery without angina pectoris; Z79.82 Long term (current) use of aspirin; Z79.84 Long term (current) use of oral hypoglycemic drugs; Z79.899 Other long term (current) drug therapy; Z98.61 Coronary angioplasty status; Z92.3 Personal history of irradiation; Z85.46 Personal history of malignant neoplasm of prostate; Z88.8 Allergy status to other drugs, medicaments and biological substances; Z91.041 Radiographic dye allergy status

== ENCOUNTER → 2016-09-25 | Outpatient (CLI) | payer MEDICARE, BC, OTHER ==
[~2016-09-25] MED LIST changes: +RANI150T PO
[2016-09-25 13:30] LABS: MEAN CORPUSCULAR HEMOGLOBIN 28.2 pg (27.0-33.0); MEAN CORPUSCULAR HGB CONC 31.6 g/dl (32.0-36.5); MEAN CORPUSCULAR VOLUME 89.2 fl (80.0-96.0); RED CELL DISTRIBUTION WIDTH 17.7 % (11.5-14.5); WHITE BLOOD COUNT 3.3 K/mm3 (4.0-10.0)
[2016-09-25 13:47] LABS: ALBUMIN 3.5 GM/DL (3.2-5.2); ALBUMIN/GLOBULIN RATIO 1.17 (1.00-1.93); ALKALINE PHOSPHATASE 37 U/L (45-117); ALT/SGPT 23 U/L (12-78); ANION GAP 5 MEQ/L (8-16); AST/SGOT 10 U/L (15-37); BLOOD UREA NITROGEN 14 MG/DL (7-18); CALCIUM LEVEL 8.8 MG/DL (8.8-10.2); CARBON DIOXIDE LEVEL 30 MEQ/L (21-32); CHLORIDE LEVEL 106 MEQ/L (98-107); CHOLESTEROL LEVEL 85 MG/DL (<200); CREATININE FOR GFR 0.78 MG/DL (0.70-1.30); GLOMERULAR FILTRATION RATE > 60.0 (>42); GLUCOSE, FASTING 143 MG/DL (83-110); POTASSIUM SERUM 4.4 MEQ/L (3.5-5.1); SODIUM LEVEL 141 MEQ/L (136-145); TOTAL PROTEIN 6.5 GM/DL (6.4-8.2); TRIGLYCERIDES LEVEL 68 MG/DL (<150)
== END ==
LOC: M WUC 10:22
PROVIDERS: ATTEND Family Medicine
DX: I25.10 Atherosclerotic heart disease of native coronary artery without angina pectoris (principal); E11.8 Type 2 diabetes mellitus with unspecified complications; E78.2 Mixed hyperlipidemia

== ENCOUNTER → 2016-12-03 | Outpatient (REF) | payer MEDICARE, BC, OTHER ==
[~2016-12-03] MED LIST changes: +ASPI-161 PO; -ASPI1TAB24 PO; -ATOR40TA PO; +ATOR40TA75 PO; -METF500T PO; +METF500T13 PO; -VITA100037 PO; +VITA100067 PO
== END ==
LOC: M LAB REF 13:02
PROVIDERS: ATTEND Surgery
DX: C44.329 Squamous cell carcinoma of skin of other parts of face (principal); L57.0 Actinic keratosis

== ENCOUNTER → 2016-12-29 | Outpatient (CLI) | payer MEDICARE, OTHER ==
[2016-12-29 17:23] LABS: MEAN CORPUSCULAR HEMOGLOBIN 27.2 pg (27.0-33.0); MEAN CORPUSCULAR HGB CONC 31.5 g/dl (32.0-36.5); MEAN CORPUSCULAR VOLUME 86.3 fl (80.0-96.0); RED CELL DISTRIBUTION WIDTH 17.4 % (11.5-14.5); RETIC HEMOGLOBIN CONTENT CHr 28.5 PG (24-36); RETICULOCYTE % 1.9 % (0.5-1.5); WHITE BLOOD COUNT 4.7 K/mm3 (4.0-10.0)
[2016-12-29 17:33] LABS: ANION GAP 8 MEQ/L (8-16); BLOOD UREA NITROGEN 23 MG/DL (7-18); CALCIUM LEVEL 8.6 MG/DL (8.8-10.2); CARBON DIOXIDE LEVEL 28 MEQ/L (21-32); CHLORIDE LEVEL 107 MEQ/L (98-107); CREATININE FOR GFR 1.08 MG/DL (0.70-1.30); FERRITIN 31 NG/ML (26-388); GLOMERULAR FILTRATION RATE > 60.0 (>42); GLUCOSE, FASTING 128 MG/DL (83-110); PERCENT SATURATION 27.1 % (19.7-50.0); POTASSIUM SERUM 4.6 MEQ/L (3.5-5.1); SODIUM LEVEL 143 MEQ/L (136-145); TOTAL IRON BINDING CAPACITY 295 UG/DL (250-450)
== END ==
LOC: M WUC 11:02
PROVIDERS: ATTEND Family Medicine
DX: D50.0 Iron deficiency anemia secondary to blood loss (chronic) (principal); I11.9 Hypertensive heart disease without heart failure

== ENCOUNTER → 2017-06-30 | Outpatient (CLI) | payer MEDICARE, OTHER ==
[2017-06-30 15:05] LABS: HEMATOCRIT 35.5 % (42.0-52.0); HEMOGLOBIN 10.8 g/dl (14.0-18.0); MEAN CORPUSCULAR HEMOGLOBIN 25.7 pg (27.0-33.0); MEAN CORPUSCULAR HGB CONC 30.4 g/dl (32.0-36.5); MEAN CORPUSCULAR VOLUME 84.5 fl (80.0-96.0); PLATELET COUNT, AUTOMATED 181 10^3/uL (150-450); RED CELL DISTRIBUTION WIDTH 19.2 % (11.5-14.5); WHITE BLOOD COUNT 5.4 10^3/uL (4.0-10.0)
[2017-06-30 15:36] LABS: ALBUMIN 3.7 GM/DL (3.2-5.2); ALBUMIN/GLOBULIN RATIO 1.28 (1.00-1.93); ALKALINE PHOSPHATASE 47 U/L (45-117); ALT/SGPT 21 U/L (12-78); ANION GAP 5 MEQ/L (8-16); AST/SGOT 12 U/L (7-37); BILIRUBIN,TOTAL 0.7 MG/DL (0.2-1.0); BLOOD UREA NITROGEN 17 MG/DL (7-18); CALCIUM LEVEL 8.5 MG/DL (8.8-10.2); CARBON DIOXIDE LEVEL 30 MEQ/L (21-32); CHLORIDE LEVEL 107 MEQ/L (98-107); FERRITIN 17 NG/ML (26-388); GLOMERULAR FILTRATION RATE 56.8 (>42); GLUCOSE, FASTING 103 MG/DL (70-100); IRON (FE) 52 UG/DL (65-175); PERCENT SATURATION 17.6 % (19.7-50.0); POTASSIUM SERUM 4.6 MEQ/L (3.5-5.1); SODIUM LEVEL 142 MEQ/L (136-145); TOTAL IRON BINDING CAPACITY 295 UG/DL (250-450); TOTAL PROTEIN 6.6 GM/DL (6.4-8.2)
== END ==
LOC: M WUC 13:30
DX: D50.9 Iron deficiency anemia, unspecified (principal)
CPT/HCPCS: 83550

== ENCOUNTER → 2017-11-08 | Outpatient (CLI) | payer MEDICARE, BC, OTHER ==
[~2017-11-08] MED LIST changes: -*ANUSOI; -ACIPHEX; -ALTA10CA; -ASPI-161 PO; -ASPI81TA45; -ATEN100T; -ATEN100T PO; -ATOR40TA75 PO; -CHLO125TA PO; -CIPR500T3 PO; -FINA5TAB2 PO; -GLUC500T; -GLUC500T3; -HYOS0.378; -IRON1TAB PO; -LIPI20TA; +LIQUID POLIBAR PLUS 105% w/v 1900ML BTL As Ordered; -METF500T13 PO; -MULT1TAB10 PO; -MULTIVIT; -NORV5TAB; -PERCOCET PO; -PRIL40CA; -PROS5TAB; -RAMI10CA PO; -RANI150T PO; -VITA100067 PO; -VITA500T53 PO; -[UNRECOGNIZED DRUG - OTHER]
== END ==
LOC: M RAD 10:32
DX: K63.89 Other specified diseases of intestine (principal); K56.690 Other partial intestinal obstruction
CPT/HCPCS: 74018

== ENCOUNTER → 2017-11-16 | Outpatient (CLI) | payer MEDICARE, BC, OTHER ==
[2017-11-16 17:07] LABS: HEMATOCRIT 39.2 % (42.0-52.0); HEMOGLOBIN 12.2 g/dl (13.5-17.5); MEAN CORPUSCULAR HEMOGLOBIN 27.2 pg (27.0-33.0); MEAN CORPUSCULAR HGB CONC 31.1 g/dl (32.0-36.5); MEAN CORPUSCULAR VOLUME 87.5 fl (80.0-96.0); PLATELET COUNT, AUTOMATED 156 10^3/uL (150-450); POSITIVE MORPH POS FLAG; RED BLOOD COUNT 4.48 10^6/uL (4.30-6.10); RED CELL DISTRIBUTION WIDTH 18.3 % (11.5-14.5); RETIC HEMOGLOBIN EQUIVALENT 33.1 pg (24-36); RETICULOCYTE # 54.7 10^9/L (17-77); RETICULOCYTE % 1.2 % (0.5-1.5); WHITE BLOOD COUNT 4.6 10^3/uL (4.0-10.0)
[2017-11-16 17:35] LABS: ALBUMIN 3.5 GM/DL (3.2-5.2); ALBUMIN/GLOBULIN RATIO 1.21 (1.00-1.93); ALKALINE PHOSPHATASE 42 U/L (45-117); ALT/SGPT 27 U/L (12-78); ANION GAP 6 MEQ/L (8-16); AST/SGOT 16 U/L (7-37); BILIRUBIN,TOTAL 0.8 MG/DL (0.2-1.0); BLOOD UREA NITROGEN 21 MG/DL (7-18); CALCIUM LEVEL 8.6 MG/DL (8.8-10.2); CARBON DIOXIDE LEVEL 29 MEQ/L (21-32); CHLORIDE LEVEL 108 MEQ/L (98-107); CREATININE FOR GFR 1.13 MG/DL (0.70-1.30); ESTIMATED AVERAGE GLUCOSE 166 MG/DL (60-110); FERRITIN 32 NG/ML (26-388); GLOMERULAR FILTRATION RATE > 60.0 (>42); GLUCOSE, FASTING 182 MG/DL (70-100); HEMOGLOBIN A1c 7.4 %; IRON (FE) 110 UG/DL (65-175); PERCENT SATURATION 40.6 % (19.7-50.0); SODIUM LEVEL 143 MEQ/L (136-145); TOTAL IRON BINDING CAPACITY 271 UG/DL (250-450); TOTAL PROTEIN 6.4 GM/DL (6.4-8.2)
[2017-11-16 17:37] LABS: POTASSIUM SERUM 5.2 MEQ/L (3.5-5.1)
== END ==
LOC: M WUC 11:37
DX: D50.0 Iron deficiency anemia secondary to blood loss (chronic) (principal); E11.9 Type 2 diabetes mellitus without complications
CPT/HCPCS: 83550

== ENCOUNTER → 2017-11-18 | Outpatient (CLI) | payer MEDICARE, BC, OTHER | LOC: M RAD 10:56 | DX: K63.89 Other specified diseases of intestine (principal); K56.690 Other partial intestinal obstruction | CPT/HCPCS: 74280 ==

== ENCOUNTER → 2018-02-10 | Outpatient (REF) | payer MEDICARE, OTHER | LOC: M LAB REF 16:05 | DX: C44.729 Squamous cell carcinoma of skin of left lower limb, including hip (principal) | CPT/HCPCS: 88305 ==

== ENCOUNTER → 2018-02-15 | Outpatient (CLI) | payer MEDICARE, OTHER ==
[2018-02-15 13:28] LABS: ANION GAP 6 MEQ/L (8-16); BLOOD UREA NITROGEN 21 MG/DL (7-18); CALCIUM LEVEL 8.2 MG/DL (8.8-10.2); CARBON DIOXIDE LEVEL 29 MEQ/L (21-32); CHLORIDE LEVEL 108 MEQ/L (98-107); CREATININE FOR GFR 1.13 MG/DL (0.70-1.30); ESTIMATED AVERAGE GLUCOSE 148 MG/DL (60-110); GLOMERULAR FILTRATION RATE > 60.0 (>42); GLUCOSE, FASTING 137 MG/DL (70-100); HEMOGLOBIN A1c 6.8 %; POTASSIUM SERUM 4.5 MEQ/L (3.5-5.1); SODIUM LEVEL 143 MEQ/L (136-145)
== END ==
LOC: M WUC 10:00
DX: E11.8 Type 2 diabetes mellitus with unspecified complications (principal)
CPT/HCPCS: 83036

== ENCOUNTER → 2018-09-06 | Outpatient (CLI) | payer MEDICARE, OTHER ==
[~2018-09-06] MED LIST changes: +*ANUSOI; +ACIPHEX; +ALTA10CA; +ASPI-161 PO; +ASPI81TA45; +ATEN100T; +ATEN100T PO; +ATOR40TA75 PO; +CHLO125TA PO; +CIPR500T3 PO; +FINA5TAB2 PO; +GLUC500T; +GLUC500T3; +HYOS0.378; +IRON1TAB PO; +LIPI20TA; -LIQUID POLIBAR PLUS 105% w/v 1900ML BTL As Ordered; +METF500T13 PO; +MULT1TAB10 PO; +MULTIVIT; +NORV5TAB; +PERCOCET PO; +PRIL40CA; +PROS5TAB; +RAMI1CAP26 PO; +RANI150T PO; +VITA100067 PO; +VITA500T17 PO; +[UNRECOGNIZED DRUG - OTHER]
[2018-09-06 12:04] LABS: HEMATOCRIT 37.3 % (42.0-52.0); HEMOGLOBIN 11.6 g/dl (13.5-17.5); MEAN CORPUSCULAR HEMOGLOBIN 26.7 pg (27.0-33.0); MEAN CORPUSCULAR HGB CONC 31.1 g/dl (32.0-36.5); MEAN CORPUSCULAR VOLUME 85.9 fl (80.0-96.0); PLATELET COUNT, AUTOMATED 177 10^3/uL (150-450); RED BLOOD COUNT 4.34 10^6/uL (4.30-6.10); WHITE BLOOD COUNT 4.5 10^3/uL (4.0-10.0)
[2018-09-06 12:20] LABS: ALBUMIN 3.3 GM/DL (3.2-5.2); ALT/SGPT 21 U/L (12-78); BILIRUBIN,TOTAL 1.1 MG/DL (0.2-1.0); BLOOD UREA NITROGEN 22 MG/DL (7-18); CALCIUM LEVEL 8.9 MG/DL (8.8-10.2); CARBON DIOXIDE LEVEL 30 MEQ/L (21-32); CHLORIDE LEVEL 106 MEQ/L (98-107); CHOLESTEROL LEVEL 97 MG/DL (<200); CHOLESTEROL RISK RATIO 2.204 (<5); CREATININE FOR GFR 1.21 MG/DL (0.70-1.30); GLOMERULAR FILTRATION RATE > 60.0 (>42); GLUCOSE, FASTING 131 MG/DL (70-100); HDL CHOLESTEROL 44 MG/DL (>40); LDL CHOLESTEROL 37 MG/DL (<100); NON-HDL-C 53 MG/DL; POTASSIUM SERUM 4.6 MEQ/L (3.5-5.1); SODIUM LEVEL 140 MEQ/L (136-145); TOTAL PROTEIN 6.7 GM/DL (6.4-8.2); TRIGLYCERIDES LEVEL 78 MG/DL (<150)
[2018-09-06 12:23] LABS: MALB URINE SIEMENS 8.2 MG/L; MAU/CREAT RATIO 7.5 MCG/MG (0.0-30.0)
[2018-09-06 12:48] LABS: HEMOGLOBIN A1c 7.1 %
== END ==
LOC: M WUC 09:59
PROVIDERS: ATTEND Family Medicine
DX: I25.10 Atherosclerotic heart disease of native coronary artery without angina pectoris (principal); D64.9 Anemia, unspecified; E78.2 Mixed hyperlipidemia; E11.8 Type 2 diabetes mellitus with unspecified complications

== ENCOUNTER → 2018-11-02 | Outpatient (REF) | payer MEDICARE, OTHER | LOC: M SFHCPLAZ 16:56 | PROVIDERS: ATTEND Dermatology | DX: L57.0 Actinic keratosis (principal) ==

== ENCOUNTER → 2019-03-07 | Outpatient (CLI) | payer MEDICARE, OTHER ==
[2019-03-07 13:03] LABS: BLOOD UREA NITROGEN 19 MG/DL (7-18); CALCIUM LEVEL 8.7 MG/DL (8.8-10.2); CARBON DIOXIDE LEVEL 31 MEQ/L (21-32); CHLORIDE LEVEL 105 MEQ/L (98-107); GLOMERULAR FILTRATION RATE > 60.0 (>35); GLUCOSE, FASTING 128 MG/DL (70-100); POTASSIUM SERUM 4.5 MEQ/L (3.5-5.1); SODIUM LEVEL 142 MEQ/L (136-145)
== END ==
LOC: M WUC 10:52
PROVIDERS: ATTEND Family Medicine
DX: E11.8 Type 2 diabetes mellitus with unspecified complications (principal)

== ENCOUNTER → 2019-09-12 | Outpatient (CLI) | payer MEDICARE, OTHER ==
[2019-09-12 14:18] LABS: HEMATOCRIT 40.8 % (42.0-52.0); HEMOGLOBIN 12.6 g/dl (13.5-17.5); MEAN CORPUSCULAR HEMOGLOBIN 27.3 pg (27.0-33.0); MEAN CORPUSCULAR HGB CONC 30.9 g/dl (32.0-36.5); MEAN CORPUSCULAR VOLUME 88.5 fl (80.0-96.0); PLATELET COUNT, AUTOMATED 150 10^3/uL (150-450); RED BLOOD COUNT 4.61 10^6/uL (4.30-6.10); WHITE BLOOD COUNT 4.9 10^3/uL (4.0-10.0)
[2019-09-12 14:56] LABS: ALBUMIN 3.6 GM/DL (3.2-5.2); ALT/SGPT 24 U/L (12-78); BLOOD UREA NITROGEN 16 MG/DL (7-18); CALCIUM LEVEL 8.6 MG/DL (8.8-10.2); CARBON DIOXIDE LEVEL 29 MEQ/L (21-32); CHLORIDE LEVEL 107 MEQ/L (98-107); CREATININE FOR GFR 1.05 MG/DL (0.70-1.30); GLOMERULAR FILTRATION RATE > 60.0 (>35); GLUCOSE, FASTING 135 MG/DL (70-100); NT-PRO BNP 203 PG/ML (<450); POTASSIUM SERUM 4.6 MEQ/L (3.5-5.1); SODIUM LEVEL 141 MEQ/L (136-145); TOTAL PROTEIN 6.4 GM/DL (6.4-8.2)
== END ==
LOC: M WUC 10:30
PROVIDERS: ATTEND Internal Medicine Cardiovascular Disease
DX: I50.32 Chronic diastolic (congestive) heart failure (principal)

== ENCOUNTER → 2019-09-12 | Outpatient (CLI) | payer MEDICARE, OTHER ==
[2019-09-12 14:18] LABS: BASO % 0.6 % (0.0-1.0); EOS # 0.1 10^3/uL (0.0-0.5); EOS % 1.9 % (0.0-3.0); HEMATOCRIT 41.1 % (42.0-52.0); HEMOGLOBIN 12.3 g/dl (13.5-17.5); LYMPH % 21.1 % (24.0-44.0); MEAN CORPUSCULAR HEMOGLOBIN 26.5 pg (27.0-33.0); MEAN CORPUSCULAR HGB CONC 29.9 g/dl (32.0-36.5); MEAN CORPUSCULAR VOLUME 88.4 fl (80.0-96.0); MONO # 0.7 10^3/uL (0.0-0.8); MONO % 15.6 % (0.0-5.0); NEUTROPHILS # 2.8 10^3/uL (1.5-8.5); PLATELET COUNT, AUTOMATED 141 10^3/uL (150-450); RED BLOOD COUNT 4.65 10^6/uL (4.30-6.10); WHITE BLOOD COUNT 4.7 10^3/uL (4.0-10.0)
[2019-09-12 14:44] LABS: MALB URINE SIEMENS 15.8 MG/L; MAU/CREAT RATIO 10.5 MCG/MG (0.0-30.0)
[2019-09-12 14:47] LABS: ALBUMIN 3.5 GM/DL (3.2-5.2); ALT/SGPT 26 U/L (12-78); BLOOD UREA NITROGEN 17 MG/DL (7-18); CALCIUM LEVEL 8.6 MG/DL (8.8-10.2); CARBON DIOXIDE LEVEL 29 MEQ/L (21-32); CHLORIDE LEVEL 107 MEQ/L (98-107); CHOLESTEROL LEVEL 96 MG/DL (<200); CHOLESTEROL RISK RATIO 2.133 (<5); CREATININE FOR GFR 1.03 MG/DL (0.70-1.30); FERRITIN 30 NG/ML (26-388); GLOMERULAR FILTRATION RATE > 60.0 (>35); GLUCOSE, FASTING 132 MG/DL (70-100); HDL CHOLESTEROL 45 MG/DL (>40); IRON (FE) 87 UG/DL (65-175); LDL CHOLESTEROL 30 MG/DL (<100); NON-HDL-C 51 MG/DL; PERCENT SATURATION 31.6 % (19.7-50.0); POTASSIUM SERUM 4.5 MEQ/L (3.5-5.1); SODIUM LEVEL 141 MEQ/L (136-145); TOTAL IRON BINDING CAPACITY 275 UG/DL (250-450); TOTAL PROTEIN 6.5 GM/DL (6.4-8.2); TRIGLYCERIDES LEVEL 107 MG/DL (<150)
[2019-09-12 15:11] LABS: HEMOGLOBIN A1c 7.4 %
== END ==
LOC: M WUC 10:25
PROVIDERS: ATTEND Family Medicine
DX: I11.9 Hypertensive heart disease without heart failure (principal); E11.8 Type 2 diabetes mellitus with unspecified complications; E78.2 Mixed hyperlipidemia; D64.9 Anemia, unspecified; K62.7 Radiation proctitis; I50.32 Chronic diastolic (congestive) heart failure

== ENCOUNTER → 2020-03-19 | Outpatient (CLI) | payer MEDICARE, OTHER ==
[2020-03-19 13:43] LABS: HEMOGLOBIN A1c 7.4 %
[2020-03-19 13:44] LABS: BLOOD UREA NITROGEN 16 MG/DL (7-18); CALCIUM LEVEL 8.7 MG/DL (8.8-10.2); CARBON DIOXIDE LEVEL 30 MEQ/L (21-32); CHLORIDE LEVEL 106 MEQ/L (98-107); GLOMERULAR FILTRATION RATE > 60.0 (>35); GLUCOSE, FASTING 147 MG/DL (70-100); POTASSIUM SERUM 4.6 MEQ/L (3.5-5.1); SODIUM LEVEL 142 MEQ/L (136-145)
== END ==
LOC: M WUC 10:59
PROVIDERS: ATTEND Family Medicine
DX: E11.8 Type 2 diabetes mellitus with unspecified complications (principal)

== ENCOUNTER → 2020-05-09 | Outpatient (CLI) | payer MEDICARE, OTHER ==
[2020-05-09 13:21] LABS: HEMATOCRIT 33.8 % (42.0-52.0); MEAN CORPUSCULAR HEMOGLOBIN 24.2 pg (27.0-33.0); MEAN CORPUSCULAR HGB CONC 29.6 g/dl (32.0-36.5); MEAN CORPUSCULAR VOLUME 81.8 fl (80.0-96.0); PLATELET COUNT, AUTOMATED 170 10^3/uL (150-450); RED BLOOD COUNT 4.13 10^6/uL (4.30-6.10); WHITE BLOOD COUNT 4.6 10^3/uL (4.0-10.0)
[2020-05-09 13:45] LABS: ALBUMIN 3.7 GM/DL (3.2-5.2); ALT/SGPT 25 U/L (12-78); BLOOD UREA NITROGEN 16 MG/DL (7-18); CALCIUM LEVEL 8.8 MG/DL (8.8-10.2); CARBON DIOXIDE LEVEL 29 MEQ/L (21-32); CHLORIDE LEVEL 106 MEQ/L (98-107); CREATININE FOR GFR 1.13 MG/DL (0.70-1.30); GLOMERULAR FILTRATION RATE > 60.0 (>35); GLUCOSE, FASTING 211 MG/DL (70-100); MAGNESIUM LEVEL 1.9 MG/DL (1.8-2.4); NT-PRO BNP 189 PG/ML (<450); POTASSIUM SERUM 4.3 MEQ/L (3.5-5.1); SODIUM LEVEL 140 MEQ/L (136-145); TOTAL PROTEIN 6.4 GM/DL (6.4-8.2)
== END ==
LOC: M WUC 11:46
PROVIDERS: ATTEND Internal Medicine Cardiovascular Disease
DX: I50.32 Chronic diastolic (congestive) heart failure (principal)

== ENCOUNTER 2020-07-04 10:32 | Emergency (ER) | payer MEDICARE, BC, OTHER ==
[~2020-07-04] VITALS: Ht 179.1 cm; Wt 84.1 kg
--- NOTE | 2020-07-04 11:08 | REP ---
INDICATION: trauma. COMPARISON: None. TECHNIQUE: Single AP view of the pelvis FINDINGS: Generalized age-related degenerative changes are appreciated along with vascular calcifications and phleboliths. No obvious acute fracture or dislocation. IMPRESSION: No acute fracture or dislocation appreciated. <Electronically signed by Taqueria Mueller > 07/04/20 [id number]
--- NOTE | 2020-07-04 11:13 | REP ---
INDICATION: trauma COMPARISON: None. TECHNIQUE: AP and frog-lateral views of the left hip FINDINGS: Age-related arthritic degenerative changes are appreciated along with vascular calcifications and phleboliths. No obvious acute fracture or dislocation. IMPRESSION: Arthritic changes. No acute fracture or dislocation. <Electronically signed by Taqueria Mueller > 07/04/20 110
[2020-07-04] MEDS ORDERED: LIDOCAINE 5% (LIDODERM) PATCH TD ONE (12:20)
[2020-07-04] MEDS ORDERED: ACETAMINOPHEN 325 MG TAB PO ONE (12:20)
[2020-07-04] MEDS ORDERED: LIDO5DIS41 TOP (12:29)
[2020-07-04 12:39] VITALS: BP 166/72
[2020-07-04] MEDS ORDERED: **NOTE PATIENT COMMENT** MISC XX SCH (21:00)
== END 2020-07-04 12:45 | disposition home or self-care (01) ==
LOC: M ED 10:32
DX: M16.12 Unilateral primary osteoarthritis, left hip (principal); I10 Essential (primary) hypertension; E11.9 Type 2 diabetes mellitus without complications; Z95.1 Presence of aortocoronary bypass graft; Z91.041 Radiographic dye allergy status; Z79.899 Other long term (current) drug therapy; Z79.84 Long term (current) use of oral hypoglycemic drugs; Z79.82 Long term (current) use of aspirin

== ENCOUNTER → 2020-07-09 | Outpatient (REF) | payer MEDICARE, OTHER ==
[~2020-07-09] MED LIST changes: +LIDO5DIS41 TOP
[2020-07-09 13:41] LABS: HEMATOCRIT 35.1 % (42.0-52.0); MEAN CORPUSCULAR HEMOGLOBIN 22.4 pg (27.0-33.0); MEAN CORPUSCULAR HGB CONC 28.5 g/dl (32.0-36.5); MEAN CORPUSCULAR VOLUME 78.7 fl (80.0-96.0); PLATELET COUNT, AUTOMATED 183 10^3/uL (150-450); RED BLOOD COUNT 4.46 10^6/uL (4.30-6.10); WHITE BLOOD COUNT 4.4 10^3/uL (4.0-10.0)
[2020-07-09 14:15] LABS: ALBUMIN 4.1 GM/DL (3.2-5.2); BILIRUBIN,TOTAL 0.9 MG/DL (0.2-1.0); CALCIUM LEVEL 9.3 MG/DL (8.8-10.2); CHOLESTEROL RISK RATIO 2.225 (<5); CREATININE FOR GFR 1.36 MG/DL (0.70-1.30); GLOMERULAR FILTRATION RATE 53.5 (>35); POTASSIUM SERUM 4.5 MEQ/L (3.5-5.1); TOTAL PROTEIN 7.3 GM/DL (6.4-8.2)
[2020-07-09 14:20] LABS: TOTAL 25(OH) VITAMIN D 57.1 NG/ML (30.0-100.0)
[2020-07-09 14:22] LABS: MAU/CREAT RATIO 13.9 MCG/MG (0.0-30.0)
[2020-07-09 15:30] LABS: HEMOGLOBIN A1c 6.9 %
== END ==
LOC: M SFHCADAM 10:41
PROVIDERS: ATTEND Family Medicine
DX: I25.10 Atherosclerotic heart disease of native coronary artery without angina pectoris (principal); K62.7 Radiation proctitis; E11.8 Type 2 diabetes mellitus with unspecified complications; E78.2 Mixed hyperlipidemia; E55.9 Vitamin D deficiency, unspecified; D51.9 Vitamin B12 deficiency anemia, unspecified
CPT/HCPCS: 80053; 80061; 82043; 82306; 82607; 83036; 85027; G0463

== ENCOUNTER → 2020-07-09 | Outpatient (REF) | payer MEDICARE, OTHER ==
[2020-07-10 12:49] LABS: ANISOCYTOSIS 2+; MICROCYTOSIS 1+; OVALOCYTES 1+; PLATELET ESTIMATE NORMAL (NORMAL)
[2020-07-10 12:50] LABS: CRENATED RBC 1+
[2020-07-10 13:47] LABS: IRON (FE) 35 UG/DL (65-175); LDH LACTATE DEHYDROGENASE 155 U/L (87-241); PERCENT SATURATION 9.2 % (19.7-50.0); PROSTATIC SPECIFIC AG MONITOR < 0.01 NG/ML (< 4.00); TOTAL IRON BINDING CAPACITY 379 UG/DL (250-450)
== END ==
LOC: M LABDRWAD 12:08
PROVIDERS: ATTEND Internal Medicine Cardiovascular Disease
DX: D64.9 Anemia, unspecified (principal); C61 Malignant neoplasm of prostate

== ENCOUNTER → 2020-07-24 | Outpatient (CLI) | payer MEDICARE, BC, OTHER ==
--- NOTE | 2020-07-24 15:06 | REP ---
INDICATION: ATHSCL ARTERIES W/ CLAUDICATION HERMELINDA LEGS COMPARISON: None. TECHNIQUE: Real time swann scale and Duplex Doppler evaluation of the bilateral lower extremity arterial vasculature using linear high frequency transducer. FINDINGS: Swann scale and duplex doppler images demonstrate mild to moderate amounts of atheromatous plaquing with areas of mild narrowing but no focal stenosis identified. There is no occlusion. Doppler interrogation demonstrates normal arterial wave forms and velocities bilaterally. Peak systolic velocities (cm/sec) Common femoral artery: Right 154; Left 103 Profunda femoris: Right 129; Left 75 SFA (proximal): Right 112; Left 93 SFA (mid): Right 90; Left 81 SFA (distal): Right 101; Left 85 Popliteal artery: Right 82; Left 73 SIM (prox.): Right 113; Left 62 Tibioperoneal trunk: Right 52; Left [address] (prox.): Right 56; Left [address] (distal): Right 55; Left 103 SIM (distal): Right 60; Left 82 IMPRESSION: Atheromatous changes with areas of narrowing but no focal occlusion or stenosis. <Electronically signed by Davide Swann > 07/24/20 [id number]
== END ==
LOC: M RAD 12:43
PROVIDERS: ATTEND Physician Assistant
DX: I70.213 Atherosclerosis of native arteries of extremities with intermittent claudication, bilateral legs (principal)

== ENCOUNTER → 2020-07-31 | Outpatient (CLI) | payer MEDICARE, BC, OTHER ==
[2020-07-31 19:59] LABS: HEMATOCRIT 38.2 % (42.0-52.0); HEMOGLOBIN 10.7 g/dl (13.5-17.5); MEAN CORPUSCULAR HEMOGLOBIN 23.4 pg (27.0-33.0); MEAN CORPUSCULAR VOLUME 83.6 fl (80.0-96.0); PLATELET COUNT, AUTOMATED 155 10^3/uL (150-450); RED BLOOD COUNT 4.57 10^6/uL (4.30-6.10); WHITE BLOOD COUNT 4.3 10^3/uL (4.0-10.0)
[2020-07-31 20:03] LABS: ALBUMIN 4.1 GM/DL (3.2-5.2); BLOOD UREA NITROGEN 21 MG/DL (7-18); CALCIUM LEVEL 9.6 MG/DL (8.8-10.2); CARBON DIOXIDE LEVEL 30 MEQ/L (21-32); CHLORIDE LEVEL 104 MEQ/L (98-107); CREATININE FOR GFR 1.22 MG/DL (0.70-1.30); GLOMERULAR FILTRATION RATE > 60.0 (>35); GLUCOSE, FASTING 155 MG/DL (70-100); POTASSIUM SERUM 4.2 MEQ/L (3.5-5.1); SODIUM LEVEL 139 MEQ/L (136-145)
== END ==
LOC: M WUC 15:16
PROVIDERS: ATTEND Internal Medicine Cardiovascular Disease
DX: D50.0 Iron deficiency anemia secondary to blood loss (chronic) (principal); I50.32 Chronic diastolic (congestive) heart failure; R60.0 Localized edema

== ENCOUNTER → 2020-07-31 | Outpatient (RCR) | payer MEDICARE, BC, OTHER | END | disposition home or self-care (01) | LOC: M PT 12:43 | PROVIDERS: ATTEND Orthopaedic Surgery Sports Medicine | DX: M54.10 Radiculopathy, site unspecified (principal) ==

== ENCOUNTER 2020-08-29 14:30 | Outpatient (RCR) | payer MEDICARE, BC, OTHER | END 2020-08-30 | LOC: M PT 14:30 | PROVIDERS: ATTEND Orthopaedic Surgery Sports Medicine | DX: M54.10 Radiculopathy, site unspecified (principal) ==

== ENCOUNTER 2020-09-02 14:54 | Outpatient (RCR) | payer MEDICARE, BC, OTHER | END 2020-09-30 | LOC: M PT 14:54 | PROVIDERS: ATTEND Orthopaedic Surgery Sports Medicine | DX: M54.10 Radiculopathy, site unspecified (principal) ==

== ENCOUNTER → 2020-12-17 | Outpatient (CLI) | payer MEDICARE, BC, OTHER ==
[2020-12-17 16:03] LABS: HEMATOCRIT 33.1 % (42.0-52.0); HEMOGLOBIN 9.5 g/dl (13.5-17.5); MEAN CORPUSCULAR HEMOGLOBIN 23.1 pg (27.0-33.0); MEAN CORPUSCULAR HGB CONC 28.7 g/dl (32.0-36.5); MEAN CORPUSCULAR VOLUME 80.5 fl (80.0-96.0); PLATELET COUNT, AUTOMATED 157 10^3/uL (150-450); RED BLOOD COUNT 4.11 10^6/uL (4.30-6.10); WHITE BLOOD COUNT 5.6 10^3/uL (4.0-10.0)
[2020-12-17 16:31] LABS: ALBUMIN 3.5 GM/DL (3.2-5.2); ALT/SGPT 20 U/L (12-78); BILIRUBIN,TOTAL 1.1 MG/DL (0.2-1.0); BLOOD UREA NITROGEN 17 MG/DL (7-18); CALCIUM LEVEL 8.3 MG/DL (8.8-10.2); CARBON DIOXIDE LEVEL 31 MEQ/L (21-32); CHLORIDE LEVEL 107 MEQ/L (98-107); CHOLESTEROL LEVEL 87 MG/DL (<200); CHOLESTEROL RISK RATIO 1.891 (<5); CREATININE FOR GFR 1.12 MG/DL (0.70-1.30); GLOMERULAR FILTRATION RATE > 60.0 (>35); GLUCOSE, FASTING 156 MG/DL (70-100); HDL CHOLESTEROL 46 MG/DL (>40); LDL CHOLESTEROL 27 MG/DL (<100); NON-HDL-C 41 MG/DL; POTASSIUM SERUM 4.3 MEQ/L (3.5-5.1); SODIUM LEVEL 140 MEQ/L (136-145); TOTAL PROTEIN 6.5 GM/DL (6.4-8.2); TRIGLYCERIDES LEVEL 71 MG/DL (<150)
[2020-12-17 16:39] LABS: FOLATE > 24.0 NG/ML (>5.4); VITAMIN B12 LEVEL 235 PG/ML (247-911)
== END ==
LOC: M WUC 10:27
PROVIDERS: ATTEND Family Medicine
DX: D51.9 Vitamin B12 deficiency anemia, unspecified (principal); E78.2 Mixed hyperlipidemia; E11.8 Type 2 diabetes mellitus with unspecified complications; I25.10 Atherosclerotic heart disease of native coronary artery without angina pectoris

== ENCOUNTER → 2021-01-17 | Outpatient (CLI) | payer MEDICARE, BC, OTHER ==
--- NOTE | 2021-01-17 15:23 | REP ---
INDICATION: LT LEG PAIN SWELLING ? DVT. COMPARISON: None. TECHNIQUE: Multiple ultrasonographic images of the deep venous structures of the left lower extremity were obtained from the inguinal ligament to the ankle. Venous compression techniques, color doppler imaging, and augmentation techniques were also obtained where appropriate. As per the ACR guidelines the anterior tibial vein can not be effectively evaluated. Only compression techniques in the calf on the peroneal and posterior tibial veins was attempted/performed. FINDINGS: There is no abnormal echogenic material seen within any of the visualized deep venous structures that would suggest acute thrombosis. Coaptation is unremarkable throughout. Doppler interrogation shows an expected response to respiratory variability and augmentation in the thigh. Compression techniques in the calf were unobtainable. The color flow images show what appears to be a normal vascular pattern throughout the thigh. IMPRESSION: There is no ultrasonographic evidence of deep venous thrombosis involving any of the visualized deep venous structures of the left lower extremity as described above. Due to technical parameters calf vein DVT can not be ruled out. <Electronically signed by Aron Henson > 01/17/21 [id number]
== END ==
LOC: M RAD 14:10
PROVIDERS: ATTEND Family Medicine
DX: M79.89 Other specified soft tissue disorders (principal)

== ENCOUNTER → 2021-04-02 | Outpatient (CLI) | payer MEDICARE, BC, OTHER ==
[~2021-04-02] MED LIST changes: +B-121TAB3 PO; +ERGO500029 PO; +GABA-1171 PO; +VITMTA PO
[2021-04-02 16:44] LABS: HEMOGLOBIN A1c 7.1 %
[2021-04-02 16:51] LABS: HEMOGLOBIN 8.6 g/dl (13.5-17.5); MEAN CORPUSCULAR HEMOGLOBIN 20.9 pg (27.0-33.0); MEAN CORPUSCULAR HGB CONC 28.7 g/dl (32.0-36.5); MEAN CORPUSCULAR VOLUME 72.8 fl (80.0-96.0); PLATELET COUNT, AUTOMATED 214 10^3/uL (150-450); RED BLOOD COUNT 4.12 10^6/uL (4.30-6.10); WHITE BLOOD COUNT 5.5 10^3/uL (4.0-10.0)
[2021-04-02 17:00] LABS: ALBUMIN 3.7 GM/DL (3.2-5.2); CREATININE FOR GFR 1.24 MG/DL (0.70-1.30); GLOMERULAR FILTRATION RATE 59.4 (>35); PERCENT SATURATION 6.4 % (19.7-50.0); POTASSIUM SERUM 4.6 MEQ/L (3.5-5.1); TOTAL PROTEIN 6.9 GM/DL (6.4-8.2)
[2021-04-10 05:08] LABS: ANTI-PARIETAL CELL ANTIBODY 1.3 Units (0.0-20.0)
== END ==
LOC: M WUC 11:29
PROVIDERS: ATTEND Family Medicine
DX: D51.9 Vitamin B12 deficiency anemia, unspecified (principal); K62.5 Hemorrhage of anus and rectum; E11.8 Type 2 diabetes mellitus with unspecified complications

== ENCOUNTER → 2021-04-18 | Outpatient (CLI) | payer MEDICARE, BC, OTHER | LOC: M RAD 13:27 | PROVIDERS: ATTEND Family Medicine | DX: I73.9 Peripheral vascular disease, unspecified (principal); M71.21 Synovial cyst of popliteal space [Baker], right knee ==

== ENCOUNTER → 2021-04-29 | Outpatient (CLI) | payer MEDICARE, BC, OTHER ==
[2021-04-29 18:56] LABS: BASO # 0.1 10^3/uL (0.0-0.2); BASO % 1.1 % (0.0-1.0); EOS # 0.1 10^3/uL (0.0-0.5); EOS % 1.7 % (0.0-3.0); HEMATOCRIT 35.9 % (42.0-52.0); HEMOGLOBIN 10.2 g/dl (13.5-17.5); LYMPH # 1.3 10^3/uL (1.5-5.0); MEAN CORPUSCULAR HEMOGLOBIN 22.4 pg (27.0-33.0); MEAN CORPUSCULAR HGB CONC 28.4 g/dl (32.0-36.5); MEAN CORPUSCULAR VOLUME 78.9 fl (80.0-96.0); MONO # 1.1 10^3/uL (0.0-0.8); MONO % 19.8 % (2.0-8.0); NEUTROPHILS # 2.8 10^3/uL (1.5-8.5); NEUTROPHILS % 52.1 % (36.0-66.0); PLATELET COUNT, AUTOMATED 192 10^3/uL (150-450); RED BLOOD COUNT 4.55 10^6/uL (4.30-6.10); WHITE BLOOD COUNT 5.3 10^3/uL (4.0-10.0)
[2021-04-29 18:59] LABS: ALBUMIN 3.9 GM/DL (3.2-5.2); CREATININE FOR GFR 1.31 MG/DL (0.70-1.30); GLOMERULAR FILTRATION RATE 55.8 (>35); POTASSIUM SERUM 4.5 MEQ/L (3.5-5.1); TOTAL PROTEIN 7.2 GM/DL (6.4-8.2)
[2021-04-29 19:31] LABS: ANISOCYTOSIS 4+; PLATELET ESTIMATE NORMAL (NORMAL)
[2021-04-29 19:33] LABS: SCHISTOCYTES 4+
== END ==
LOC: M WUC 14:54
PROVIDERS: ATTEND Internal Medicine Cardiovascular Disease
DX: I50.32 Chronic diastolic (congestive) heart failure (principal); I34.0 Nonrheumatic mitral (valve) insufficiency

== ENCOUNTER → 2021-05-07 | Outpatient (CLI) | payer MEDICARE, BC, OTHER ==
[~2021-05-07] MED LIST changes: -B-121TAB3 PO; -ERGO500029 PO; -GABA-1171 PO; -VITMTA PO
== END ==
LOC: M RAD 13:37
PROVIDERS: ATTEND Internal Medicine Cardiovascular Disease
DX: D59.9 Acquired hemolytic anemia, unspecified (principal); I50.32 Chronic diastolic (congestive) heart failure; I11.0 Hypertensive heart disease with heart failure

== ENCOUNTER → 2021-05-15 | Outpatient (CLI) | payer MEDICARE, BC, OTHER ==
[~2021-05-15] MED LIST changes: +B-121TAB3 PO; +ERGO500029 PO; +GABA-1171 PO; +VITMTA PO
== END ==
LOC: M WUC 12:00
PROVIDERS: ATTEND Family Medicine
DX: D50.0 Iron deficiency anemia secondary to blood loss (chronic) (principal)

== ENCOUNTER → 2021-05-15 | Outpatient (CLI) | payer MEDICARE, OTHER | LOC: M PAIN 13:00 | PROVIDERS: ATTEND Anesthesiology | DX: M48.062 Spinal stenosis, lumbar region with neurogenic claudication (principal); M51.16 Intervertebral disc disorders with radiculopathy, lumbar region; I25.10 Atherosclerotic heart disease of native coronary artery without angina pectoris; E78.5 Hyperlipidemia, unspecified; E11.42 Type 2 diabetes mellitus with diabetic polyneuropathy; I10 Essential (primary) hypertension; D50.9 Iron deficiency anemia, unspecified; Z85.46 Personal history of malignant neoplasm of prostate; Z87.891 Personal history of nicotine dependence; Z79.82 Long term (current) use of aspirin; Z79.84 Long term (current) use of oral hypoglycemic drugs; Z79.899 Other long term (current) drug therapy; Z88.8 Allergy status to other drugs, medicaments and biological substances | CPT/HCPCS: 36415; 82728; 83550; 85027; 85046; G0463 ==

== ENCOUNTER → 2021-05-21 | Outpatient (CLI) | payer MEDICARE, BC, OTHER | LOC: M LABSMTC 12:39 | PROVIDERS: ATTEND Anesthesiology | DX: Z01.812 Encounter for preprocedural laboratory examination (principal); Z20.822 Contact with and (suspected) exposure to COVID-19 ==

== ENCOUNTER → 2021-06-18 | Outpatient (CLI) | payer MEDICARE, BC, OTHER ==
[2021-06-18 15:55] LABS: BASO # 0.1 10^3/uL (0.0-0.2); EOS # 0.4 10^3/uL (0.0-0.5); EOS % 6.3 % (0.0-3.0); HEMATOCRIT 38.1 % (42.0-52.0); HEMOGLOBIN 11.5 g/dl (13.5-17.5); LYMPH # 0.9 10^3/uL (1.5-5.0); LYMPH % 15.4 % (24.0-44.0); MEAN CORPUSCULAR HEMOGLOBIN 23.9 pg (27.0-33.0); MEAN CORPUSCULAR HGB CONC 30.2 g/dl (32.0-36.5); MONO # 1.2 10^3/uL (0.0-0.8); MONO % 20.3 % (2.0-8.0); NEUTROPHILS # 3.3 10^3/uL (1.5-8.5); NEUTROPHILS % 55.5 % (36.0-66.0); PLATELET COUNT, AUTOMATED 185 10^3/uL (150-450); RED BLOOD COUNT 4.82 10^6/uL (4.30-6.10); WHITE BLOOD COUNT 5.9 10^3/uL (4.0-10.0)
[2021-06-18 16:34] LABS: PLATELET ESTIMATE NORMAL (NORMAL)
[2021-06-18 16:35] LABS: ANISOCYTOSIS 4+
[2021-06-18 16:37] LABS: BURR CELLS 1+; MICROCYTOSIS 1+; POIKILOCYTOSIS 4+; SCHISTOCYTES 3+
== END ==
LOC: M WUC 13:06
PROVIDERS: ATTEND Internal Medicine Cardiovascular Disease
DX: D59.9 Acquired hemolytic anemia, unspecified (principal)

== ENCOUNTER → 2021-08-27 | Outpatient (CLI) | payer MEDICARE, BC, OTHER | LOC: M LABSMTC 11:52 | PROVIDERS: ATTEND Anesthesiology | DX: Z01.818 Encounter for other preprocedural examination (principal); Z11.52 Encounter for screening for COVID-19 ==

== ENCOUNTER → 2021-08-29 | Outpatient (CLI) | payer MEDICARE, BC, OTHER ==
[~2021-08-29] MED LIST changes: +LIDOCAINE 1% SDV 30ML VIAL As Ordered ONE; +NORCO, ANEXSIA 5/325MG TABLET (HYDROcodone/ACETAMINOPHEN) As Ordered ONE; +NORCO, ANEXSIA 5/325MG TABLET (HYDROcodone/ACETAMINOPHEN) PO ONE; +diazePAM 2 MG TAB As Ordered ONE; +diazePAM 2 MG TAB PO ONE; +methylPREDNISolone SUSP 40MG/ML 1ML VIAL (DEPO MEDROL) As Ordered ONE
[2021-08-29 15:25] VITALS: BP 177/77
== END ==
LOC: M IRPRO 13:03
PROVIDERS: ATTEND Anesthesiology
DX: M48.062 Spinal stenosis, lumbar region with neurogenic claudication (principal); G89.29 Other chronic pain; E11.9 Type 2 diabetes mellitus without complications; M19.90 Unspecified osteoarthritis, unspecified site; Z88.3 Allergy status to other anti-infective agents; Z91.041 Radiographic dye allergy status; Z85.46 Personal history of malignant neoplasm of prostate; Z92.3 Personal history of irradiation
CPT/HCPCS: 62323; J1030

== ENCOUNTER → 2021-09-10 | Outpatient (CLI) | payer MEDICARE, BC, OTHER ==
[~2021-09-10] MED LIST changes: -LIDOCAINE 1% SDV 30ML VIAL As Ordered ONE; -NORCO, ANEXSIA 5/325MG TABLET (HYDROcodone/ACETAMINOPHEN) As Ordered ONE; -NORCO, ANEXSIA 5/325MG TABLET (HYDROcodone/ACETAMINOPHEN) PO ONE; -diazePAM 2 MG TAB As Ordered ONE; -diazePAM 2 MG TAB PO ONE; -methylPREDNISolone SUSP 40MG/ML 1ML VIAL (DEPO MEDROL) As Ordered ONE
[2021-09-10 16:49] LABS: HEMOGLOBIN A1c 7.6 %
[2021-09-10 16:57] LABS: ALBUMIN 3.7 GM/DL (3.2-5.2); BILIRUBIN,TOTAL 0.9 MG/DL (0.2-1.0); CALCIUM LEVEL 8.7 MG/DL (8.8-10.2); CREATININE FOR GFR 1.31 MG/DL (0.70-1.30); GLOMERULAR FILTRATION RATE 55.8 (>35); PERCENT SATURATION 20.6 % (19.7-50.0); POTASSIUM SERUM 4.3 MEQ/L (3.5-5.1); TOTAL PROTEIN 6.8 GM/DL (6.4-8.2)
[2021-09-10 17:24] LABS: HEMATOCRIT 36.5 % (42.0-52.0); MEAN CORPUSCULAR HEMOGLOBIN 23.7 pg (27.0-33.0); MEAN CORPUSCULAR HGB CONC 30.1 g/dl (32.0-36.5); MEAN CORPUSCULAR VOLUME 78.7 fl (80.0-96.0); PLATELET COUNT, AUTOMATED 177 10^3/uL (150-450); RED BLOOD COUNT 4.64 10^6/uL (4.30-6.10); WHITE BLOOD COUNT 5.3 10^3/uL (4.0-10.0)
== END ==
LOC: M WUC 11:54
PROVIDERS: ATTEND Family Medicine
DX: D64.9 Anemia, unspecified (principal); E11.8 Type 2 diabetes mellitus with unspecified complications

== ENCOUNTER → 2021-10-10 | Outpatient (CLI) | payer MEDICARE, OTHER | LOC: M PAIN 15:00 | PROVIDERS: ATTEND Anesthesiology | DX: M51.16 Intervertebral disc disorders with radiculopathy, lumbar region (principal); I25.10 Atherosclerotic heart disease of native coronary artery without angina pectoris; E78.5 Hyperlipidemia, unspecified; E11.9 Type 2 diabetes mellitus without complications; N52.9 Male erectile dysfunction, unspecified; I10 Essential (primary) hypertension; D50.9 Iron deficiency anemia, unspecified; Z87.891 Personal history of nicotine dependence; Z87.11 Personal history of peptic ulcer disease; Z79.82 Long term (current) use of aspirin; Z79.84 Long term (current) use of oral hypoglycemic drugs; Z79.899 Other long term (current) drug therapy; Z91.041 Radiographic dye allergy status; Z88.8 Allergy status to other drugs, medicaments and biological substances ==

== ENCOUNTER → 2021-11-21 | Outpatient (CLI) | payer MEDICARE, OTHER ==
[2021-11-21 15:54] LABS: BASO # 0.1 10^3/uL (0.0-0.2); BASO % 1.1 % (0.0-1.0); EOS # 0.2 10^3/uL (0.0-0.5); EOS % 2.7 % (0.0-3.0); HEMATOCRIT 37.8 % (42.0-52.0); HEMOGLOBIN 11.2 g/dl (13.5-17.5); LYMPH # 1.2 10^3/uL (1.5-5.0); LYMPH % 21.9 % (24.0-44.0); MEAN CORPUSCULAR HEMOGLOBIN 23.6 pg (27.0-33.0); MEAN CORPUSCULAR HGB CONC 29.6 g/dl (32.0-36.5); MEAN CORPUSCULAR VOLUME 79.7 fl (80.0-96.0); MONO # 1.1 10^3/uL (0.0-0.8); MONO % 19.1 % (2.0-8.0); NEUTROPHILS % 53.8 % (36.0-66.0); PLATELET COUNT, AUTOMATED 146 10^3/uL (150-450); RED BLOOD COUNT 4.74 10^6/uL (4.30-6.10); WHITE BLOOD COUNT 5.6 10^3/uL (4.0-10.0)
[2021-11-21 18:13] LABS: ALBUMIN 3.8 GM/DL (3.2-5.2); BILIRUBIN,TOTAL 0.7 MG/DL (0.2-1.0); CREATININE FOR GFR 1.37 MG/DL (0.70-1.30); GLOMERULAR FILTRATION RATE 52.8 (>35); POTASSIUM SERUM 3.9 MEQ/L (3.5-5.1)
== END ==
LOC: M WUC 14:06
PROVIDERS: ATTEND Internal Medicine Cardiovascular Disease
DX: I50.32 Chronic diastolic (congestive) heart failure (principal)

== ENCOUNTER → 2021-12-02 | Outpatient (CLI) | payer MEDICARE, OTHER | LOC: M PAIN 14:45 | PROVIDERS: ATTEND Anesthesiology | DX: M51.16 Intervertebral disc disorders with radiculopathy, lumbar region (principal); G89.29 Other chronic pain; E11.9 Type 2 diabetes mellitus without complications; Z85.46 Personal history of malignant neoplasm of prostate; Z87.442 Personal history of urinary calculi; Z87.891 Personal history of nicotine dependence; Z88.3 Allergy status to other anti-infective agents; Z91.041 Radiographic dye allergy status; Z79.82 Long term (current) use of aspirin; Z79.84 Long term (current) use of oral hypoglycemic drugs; Z79.899 Other long term (current) drug therapy ==

== ENCOUNTER → 2021-12-08 | Outpatient (CLI) | payer MEDICARE, BC, OTHER | LOC: M RAD 09:12 | PROVIDERS: ATTEND Family Medicine | DX: N26.1 Atrophy of kidney (terminal) (principal) ==

== ENCOUNTER → 2021-12-18 | Outpatient (CLI) | payer MEDICARE, OTHER ==
[2021-12-18 12:54] LABS: HEMOGLOBIN A1c 7.3 %
[2021-12-18 13:11] LABS: HEMATOCRIT 35.6 % (42.0-52.0); HEMOGLOBIN 10.9 g/dl (13.5-17.5); MEAN CORPUSCULAR HEMOGLOBIN 22.9 pg (27.0-33.0); MEAN CORPUSCULAR HGB CONC 30.6 g/dl (32.0-36.5); MEAN CORPUSCULAR VOLUME 74.9 fl (80.0-96.0); PLATELET COUNT, AUTOMATED 168 10^3/uL (150-450); RED BLOOD COUNT 4.75 10^6/uL (4.30-6.10); WHITE BLOOD COUNT 4.9 10^3/uL (4.0-10.0)
[2021-12-18 13:23] LABS: ALBUMIN 3.6 GM/DL (3.2-5.2); ALT/SGPT 16 U/L (12-78); BILIRUBIN,TOTAL 0.7 MG/DL (0.2-1.0); BLOOD UREA NITROGEN 23 MG/DL (7-18); CALCIUM LEVEL 8.8 MG/DL (8.8-10.2); CARBON DIOXIDE LEVEL 25 MEQ/L (21-32); CHLORIDE LEVEL 105 MEQ/L (98-107); CREATININE FOR GFR 1.18 MG/DL (0.70-1.30); FERRITIN 18 NG/ML (26-388); GLOMERULAR FILTRATION RATE > 60.0 (>35); GLUCOSE, FASTING 204 MG/DL (70-100); IRON (FE) 34 UG/DL (65-175); PERCENT SATURATION 10.1 % (19.7-50.0); POTASSIUM SERUM 4.1 MEQ/L (3.5-5.1); SODIUM LEVEL 136 MEQ/L (136-145); TOTAL IRON BINDING CAPACITY 337 UG/DL (250-450); TOTAL PROTEIN 6.8 GM/DL (6.4-8.2)
== END ==
LOC: M WUC 10:43
PROVIDERS: ATTEND Family Medicine
DX: Z11.52 Encounter for screening for COVID-19 (principal); D51.9 Vitamin B12 deficiency anemia, unspecified; E11.8 Type 2 diabetes mellitus with unspecified complications

== ENCOUNTER → 2021-12-23 | Outpatient (CLI) | payer MEDICARE, OTHER | LOC: M PAIN 14:00 | PROVIDERS: ATTEND Anesthesiology | DX: M51.16 Intervertebral disc disorders with radiculopathy, lumbar region (principal); I25.10 Atherosclerotic heart disease of native coronary artery without angina pectoris; E78.5 Hyperlipidemia, unspecified; E11.42 Type 2 diabetes mellitus with diabetic polyneuropathy; N52.9 Male erectile dysfunction, unspecified; I10 Essential (primary) hypertension; Z85.46 Personal history of malignant neoplasm of prostate; D50.9 Iron deficiency anemia, unspecified; M19.90 Unspecified osteoarthritis, unspecified site; E53.8 Deficiency of other specified B group vitamins; Z87.891 Personal history of nicotine dependence; Z91.041 Radiographic dye allergy status; Z88.8 Allergy status to other drugs, medicaments and biological substances ==

== ENCOUNTER → 2022-01-01 | Outpatient (CLI) | payer MEDICARE, OTHER | LOC: M TMPAIN 15:00 → M PAIN 15:00 | PROVIDERS: ATTEND Anesthesiology | DX: M48.062 Spinal stenosis, lumbar region with neurogenic claudication (principal); G89.29 Other chronic pain; E11.9 Type 2 diabetes mellitus without complications; I10 Essential (primary) hypertension; D50.9 Iron deficiency anemia, unspecified; Z95.1 Presence of aortocoronary bypass graft; Z87.891 Personal history of nicotine dependence; Z88.3 Allergy status to other anti-infective agents; Z91.041 Radiographic dye allergy status; Z79.82 Long term (current) use of aspirin; Z79.84 Long term (current) use of oral hypoglycemic drugs; Z79.899 Other long term (current) drug therapy ==

== ENCOUNTER → 2022-01-20 | Outpatient (CLI) | payer MEDICARE, OTHER ==
[~2022-01-20] MED LIST changes: +FERR325T81 PO
== END ==
LOC: M PAIN 15:15
PROVIDERS: ATTEND Anesthesiology
DX: M48.062 Spinal stenosis, lumbar region with neurogenic claudication (principal); I25.10 Atherosclerotic heart disease of native coronary artery without angina pectoris; E78.5 Hyperlipidemia, unspecified; E11.9 Type 2 diabetes mellitus without complications; N52.9 Male erectile dysfunction, unspecified; I10 Essential (primary) hypertension; Z85.46 Personal history of malignant neoplasm of prostate; Z92.3 Personal history of irradiation; D50.9 Iron deficiency anemia, unspecified; Z87.11 Personal history of peptic ulcer disease; Z87.442 Personal history of urinary calculi; E53.8 Deficiency of other specified B group vitamins; Z87.891 Personal history of nicotine dependence; Z79.82 Long term (current) use of aspirin; Z79.84 Long term (current) use of oral hypoglycemic drugs; Z79.899 Other long term (current) drug therapy; Z91.041 Radiographic dye allergy status; Z88.8 Allergy status to other drugs, medicaments and biological substances

== ENCOUNTER → 2022-01-21 | Outpatient (CLI) | payer MEDICARE, BC, OTHER | LOC: M LABSMTC 10:21 | PROVIDERS: ATTEND Anesthesiology | DX: Z01.812 Encounter for preprocedural laboratory examination (principal); Z20.822 Contact with and (suspected) exposure to COVID-19 ==

== ENCOUNTER → 2022-01-22 | Outpatient (CLI) | payer MEDICARE, OTHER | LOC: M PAIN 11:30 | PROVIDERS: ATTEND Anesthesiology | DX: E11.42 Type 2 diabetes mellitus with diabetic polyneuropathy (principal); G89.29 Other chronic pain; I10 Essential (primary) hypertension; Z87.891 Personal history of nicotine dependence; Z88.3 Allergy status to other anti-infective agents; Z91.041 Radiographic dye allergy status; Z79.82 Long term (current) use of aspirin; Z79.84 Long term (current) use of oral hypoglycemic drugs; Z79.899 Other long term (current) drug therapy ==

== ENCOUNTER → 2022-02-19 | Outpatient (CLI) | payer MEDICARE, OTHER ==
[2022-02-19 16:55] LABS: BASO # 0.1 10^3/uL (0.0-0.2); BASO % 1.2 % (0.0-1.0); EOS # 0.1 10^3/uL (0.0-0.5); EOS % 2.4 % (0.0-3.0); HEMATOCRIT 41.3 % (42.0-52.0); HEMOGLOBIN 12.5 g/dl (13.5-17.5); LYMPH # 1.3 10^3/uL (1.5-5.0); LYMPH % 22.1 % (24.0-44.0); MEAN CORPUSCULAR HEMOGLOBIN 24.6 pg (27.0-33.0); MEAN CORPUSCULAR HGB CONC 30.3 g/dl (32.0-36.5); MEAN CORPUSCULAR VOLUME 81.3 fl (80.0-96.0); MONO % 17.3 % (2.0-8.0); NEUTROPHILS # 3.3 10^3/uL (1.5-8.5); NEUTROPHILS % 55.8 % (36.0-66.0); PLATELET COUNT, AUTOMATED 150 10^3/uL (150-450); RED BLOOD COUNT 5.08 10^6/uL (4.30-6.10); WHITE BLOOD COUNT 5.8 10^3/uL (4.0-10.0)
[2022-02-19 18:03] LABS: CALCIUM LEVEL 9.1 MG/DL (8.8-10.2); CREATININE FOR GFR 1.31 MG/DL (0.70-1.30); GLOMERULAR FILTRATION RATE 55.6 (>35); PERCENT SATURATION 37.4 % (19.7-50.0); POTASSIUM SERUM 3.9 MEQ/L (3.5-5.1)
== END ==
LOC: M WUC 13:46
PROVIDERS: ATTEND Physician Assistant
DX: E11.8 Type 2 diabetes mellitus with unspecified complications (principal)

== ENCOUNTER → 2022-03-12 | Outpatient (CLI) | payer MEDICARE, OTHER ==
[2022-03-12 17:59] LABS: ALBUMIN 3.7 GM/DL (3.2-5.2); BLOOD UREA NITROGEN 20 MG/DL (7-18); CALCIUM LEVEL 8.8 MG/DL (8.8-10.2); CARBON DIOXIDE LEVEL 30 MEQ/L (21-32); CHLORIDE LEVEL 104 MEQ/L (98-107); GLOMERULAR FILTRATION RATE > 60.0 (>35); GLUCOSE, FASTING 174 MG/DL (70-100); MAGNESIUM LEVEL 1.7 MG/DL (1.8-2.4); NT-PRO BNP 205 PG/ML (<450); PHOSPHORUS LEVEL 2.7 MG/DL (2.5-4.9); POTASSIUM SERUM 4.1 MEQ/L (3.5-5.1); SODIUM LEVEL 139 MEQ/L (136-145)
== END ==
LOC: M WUC 11:32
PROVIDERS: ATTEND Internal Medicine Cardiovascular Disease
DX: I49.1 Atrial premature depolarization (principal); I11.0 Hypertensive heart disease with heart failure; I50.32 Chronic diastolic (congestive) heart failure

== ENCOUNTER → 2022-03-30 | Outpatient (CLI) | payer MEDICARE, OTHER ==
[2022-03-30 18:04] LABS: VITAMIN B12 LEVEL 557 PG/ML (211-911)
[2022-03-30 18:57] LABS: HEMOGLOBIN A1c 7.1 % (4.0-6.0)
[2022-04-01 17:16] LABS: FOLATE > 24.00 NG/ML (>5.4)
[2022-04-03 06:03] LABS: ALBUMIN 4.12 GM/DL (3.29-5.55); ALBUMIN % 58.9 % (55.8-66.1); ALPHA-1-GLOBULINS 0.28 GM/DL (0.17-0.41); ALPHA-2-GLOBULINS 0.78 GM/DL (0.42-0.99); ALPHA-2-GLOBULINS % 11.2 % (7.1-11.8); BETA-1-GLOBULINS 0.39 GM/DL (0.28-0.60); BETA-1-GLOBULINS % 5.6 % (4.7-7.2); BETA-2-GLOBULINS 0.31 GM/DL (0.19-0.55); BETA-2-GLOBULINS % 4.4 % (3.2-6.5); GAMMA GLOBULIN % 15.9 % (11.1-18.8); GAMMA GLOBULINS 1.11 GM/DL (0.65-1.58)
== END ==
LOC: M WUC 13:19
PROVIDERS: ATTEND Psychiatry & Neurology Neurology
DX: E53.8 Deficiency of other specified B group vitamins (principal); E51.9 Thiamine deficiency, unspecified; E53.1 Pyridoxine deficiency; E56.0 Deficiency of vitamin E; E11.40 Type 2 diabetes mellitus with diabetic neuropathy, unspecified

== ENCOUNTER → 2022-04-02 | Outpatient (REF) | payer MEDICARE, OTHER ==
[2022-04-02 17:15] LABS: HEMATOCRIT 40.5 % (42.0-52.0); HEMOGLOBIN 12.8 g/dl (13.5-17.5); MEAN CORPUSCULAR HEMOGLOBIN 25.6 pg (27.0-33.0); MEAN CORPUSCULAR HGB CONC 31.6 g/dl (32.0-36.5); PLATELET COUNT, AUTOMATED 166 10^3/uL (150-450); WHITE BLOOD COUNT 5.8 10^3/uL (4.0-10.0)
[2022-04-02 18:05] LABS: FERRITIN 59.8 NG/ML (10.5-307.3); PERCENT SATURATION 24.3 % (19.7-50.0)
== END ==
LOC: M SFHCADAM 12:01
PROVIDERS: ATTEND Family Medicine
DX: K62.5 Hemorrhage of anus and rectum (principal); D50.0 Iron deficiency anemia secondary to blood loss (chronic); K21.9 Gastro-esophageal reflux disease without esophagitis

== ENCOUNTER → 2022-04-15 | Outpatient (CLI) | payer MEDICARE, OTHER ==
[2022-04-15 17:11] LABS: BLOOD UREA NITROGEN 18 MG/DL (9-23); CREATININE FOR GFR 1.12 MG/DL (0.70-1.30); GLOMERULAR FILTRATION RATE > 60.0 (>35)
== END ==
LOC: M WUC 13:44
PROVIDERS: ATTEND Internal Medicine Gastroenterology
DX: K56.690 Other partial intestinal obstruction (principal)

== ENCOUNTER 2022-06-26 14:02 | Inpatient (IN) | payer MEDICARE, OTHER, BC ==
[~2022-06-26] VITALS: Ht 180.3 cm; Wt 81.1 kg
[2022-06-26] MEDS ORDERED: NS 500 ML IV ONE (14:55)
[2022-06-26 16:12] LABS: APPEARANCE, URINE HAZY (CLEAR); BACTERIA, URINE AUTO NEGATIVE (NEGATIVE); BILIRUBIN, URINE AUTO NEGATIVE (NEGATIVE); BLOOD, URINE BLOOD NEGATIVE (NEGATIVE); COLOR, URINE YELLOW (YELLOW); GLUCOSE, URINE (UA) AUTO 1+ mg/dL (NEGATIVE); KETONE, URINE AUTO TRACE mg/dL (NEGATIVE); LEUKOCYTE ESTERASE, URINE AUTO NEGATIVE (NEGATIVE); MUCUS, URINE SMALL (NEGATIVE); NITRITE, URINE AUTO NEGATIVE (NEGATIVE); PROTEIN, URINE AUTO 1+ mg/dL (NEGATIVE); RBC, URINE AUTO 3 /HPF (0-3); SPECIFIC GRAVITY URINE AUTO 1.024 (1.002-1.035); SQUAMOUS EPITHELIAL CELL UR AU 0 /HPF (0-6); UROBILINOGEN, URINE AUTO 0.2 mg/dL (0.0-2.0); WBC, URINE AUTO 1 /HPF (0-3)
[2022-06-26 16:24] LABS: RSV AMPLIFICATION NEGATIVE (NEGATIVE)
[2022-06-26 16:29] LABS: ALBUMIN 4.2 G/DL (3.2-5.2); ALKALINE PHOSPHATASE 56 U/L (46-116); ALT/SGPT 23 U/L (7.0-40); AST/SGOT 31 U/L (<34); BILIRUBIN,DIRECT 0.4 MG/DL (<0.4); BILIRUBIN,TOTAL 1.7 MG/DL (0.3-1.2); BLOOD UREA NITROGEN 21 MG/DL (9-23); CALCIUM LEVEL 9.9 MG/DL (8.3-10.6); CARBON DIOXIDE LEVEL 31 MMOL/L (20-31); CHLORIDE LEVEL 99 MMOL/L (98-107); CK-MB VALUE MASS 3.4 NG/ML (<3.6); CPK CREATINE PHOSPHOKINASE 60 U/L (46-171); CREATININE FOR GFR 1.18 MG/DL (0.70-1.30); GLOMERULAR FILTRATION RATE > 60.0 (>35); GLUCOSE, FASTING 234 MG/DL (74-106); LIPASE 23 U/L (12-53); MB/CK RELATIVE INDEX 5.66 (< OR =4); POTASSIUM SERUM 4.9 MMOL/L (3.5-5.1); SODIUM LEVEL 138 MMOL/L (136-145); TOTAL PROTEIN 7.7 G/DL (5.7-8.2)
[2022-06-26] MEDS: READI-CAT 2 PO SCH ×2 (16:30→16:45)
[2022-06-26 16:36] LABS: BASO # 0.1 10^3/uL (0.0-0.2); BASO % 0.3 % (0.0-1.0); EOS # 0.1 10^3/uL (0.0-0.5); EOS % 0.3 % (0.0-3.0); HEMATOCRIT 43.1 % (42.0-52.0); HEMOGLOBIN 13.2 g/dl (13.5-17.5); LYMPH # 0.6 10^3/uL (1.5-5.0); LYMPH % 4.3 % (24.0-44.0); MEAN CORPUSCULAR HEMOGLOBIN 26.3 pg (27.0-33.0); MEAN CORPUSCULAR HGB CONC 30.6 g/dl (32.0-36.5); MEAN CORPUSCULAR VOLUME 85.9 fl (80.0-96.0); MONO % 11.1 % (2.0-8.0); NEUTROPHILS # 11.9 10^3/uL (1.5-8.5); NEUTROPHILS % 82.8 % (36.0-66.0); PLATELET COUNT, AUTOMATED 141 10^3/uL (150-450); RED BLOOD COUNT 5.02 10^6/uL (4.30-6.10); WHITE BLOOD COUNT 14.3 10^3/uL (4.0-10.0)
[2022-06-26 17:01] LABS: MONO # 1.6 10^3/uL (0.0-0.8)
[2022-06-26] MEDS ORDERED: NS 1,000 ML IV ONE (19:25)
[2022-06-26] MEDS ORDERED: DULO1CAP4 PO (19:48)
[2022-06-26] MEDS ORDERED: GABA-282 PO (19:48)
[2022-06-26] MEDS ORDERED: ATOR40TA75 PO (19:48)
[2022-06-26] MEDS ORDERED: GLIM1TAB4 PO (19:48)
[2022-06-26] MEDS ORDERED: HOME MED LIST COMPLETE! XX SCH (19:50)
[2022-06-26] MEDS ORDERED: GLUCOSE 4GM CHEW TABLET PO PRN (20:45)
[2022-06-26] MEDS ORDERED: GLUCAGON INJ 1MG VIAL SC PRN (20:45)
[2022-06-26] MEDS ORDERED: ONDANSETRON 4MG 2ML VIAL IV PRN (20:45)
[2022-06-26] MEDS ORDERED: DEXTROSE 50% 50ML SYRINGE IV PRN (20:45)
[2022-06-26] MEDS ORDERED: cloNIDine HCL 0.1 MG/24 HR PATCH TOP ONE (22:00)
[2022-06-27] MEDS: INSULIN LISPRO (NovoLOG) PER UNIT SC SCH ×4 (00:11→18:13)
[2022-06-27] MEDS ORDERED: SODIUM CHLORIDE 0.9% 1000ML IV ONE (01:35)
[2022-06-27 01:40] VITALS: BP 172/80
[2022-06-27] MEDS ORDERED: CHLORASEPTIC SPRAY MT PRN (02:10)
[2022-06-27] MEDS: NS 1,000 ML IV SCH ×2 (02:26→12:39)
[2022-06-27 04:18] LABS: VENOUS BASE EXCESS 1.5 (-2.0-2.0); VENOUS HCO3 24.3 MEQ/L (23.0-27.0); VENOUS O2 SATURATION 98.2 % (60.0-80.0); VENOUS PARTIAL PRESSURE CO2 33.2 mmHg (38.0-50.0); VENOUS PARTIAL PRESSURE O2 128.8 mmHg (30.0-50.0); VENOUS PH 7.483 UNITS (7.330-7.430); VENOUS STANDARD HCO3 25.8 MEQ/L; VENOUS TOTAL CO2 25.4 MEQ/L (24.0-28.0)
[2022-06-27 04:25] VITALS: BP 125/65
[2022-06-27] MEDS ORDERED: NS 1,000 ML IV ONE ×2 (04:50→09:15)
[2022-06-27 07:20] LABS: BLOOD UREA NITROGEN 22 MG/DL (9-23); CALCIUM LEVEL 8.9 MG/DL (8.3-10.6); CARBON DIOXIDE LEVEL 31 MMOL/L (20-31); CHLORIDE LEVEL 102 MMOL/L (98-107); CREATININE FOR GFR 1.04 MG/DL (0.70-1.30); GLOMERULAR FILTRATION RATE > 60.0 (>35); GLUCOSE, FASTING 175 MG/DL (74-106); MAGNESIUM LEVEL 1.6 MG/DL (1.8-2.4); POTASSIUM SERUM 4.7 MMOL/L (3.5-5.1); SODIUM LEVEL 143 MMOL/L (136-145)
[2022-06-27] MEDS: HALOPERIDOL 5MG/ML 1ML VIAL IV PRN ×3 (07:50→21:36)
[2022-06-27] MEDS ORDERED: MAG SULF 1GM/100ML (MAG RUN) 1 GM in IV 1 EA IV ONE (08:00)
[2022-06-27] MEDS: PANTOPRAZOLE 40MG VIAL IV SCH (08:38)
[2022-06-27] MEDS: HEPARIN SOD (PORCINE) 5000UNITS/ML 1ML VIAL/SYRINGE SC SCH ×2 (08:39→21:37)
[2022-06-27 09:32] LABS: BASO # 0.1 10^3/uL (0.0-0.2); BASO % 0.4 % (0.0-1.0); EOS # 0.1 10^3/uL (0.0-0.5); HEMATOCRIT 43.4 % (42.0-52.0); HEMOGLOBIN 12.9 g/dl (13.5-17.5); LYMPH # 0.7 10^3/uL (1.5-5.0); LYMPH % 4.9 % (24.0-44.0); MEAN CORPUSCULAR HEMOGLOBIN 25.9 pg (27.0-33.0); MEAN CORPUSCULAR HGB CONC 29.7 g/dl (32.0-36.5); MONO # 1.2 10^3/uL (0.0-0.8); MONO % 8.2 % (2.0-8.0); NEUTROPHILS # 11.9 10^3/uL (1.5-8.5); NEUTROPHILS % 84.7 % (36.0-66.0); PLATELET COUNT, AUTOMATED 156 10^3/uL (150-450); RED BLOOD COUNT 4.99 10^6/uL (4.30-6.10); WHITE BLOOD COUNT 14.1 10^3/uL (4.0-10.0)
[2022-06-27 09:42] LABS: ABG BASE EXCESS 0.1 (-2.0-2.0); ABG HCO3 24.4 MEQ/L (22.0-26.0); ABG O2 SATURATION 88.5 % (95.0-99.0); ABG PARTIAL PRESSURE CO2 38.8 mmHg (35.0-45.0); ABG PARTIAL PRESSURE O2 55.6 mmHg (75.0-100.0); ABG STANDARD HCO3 24.4 MEQ/L (22.0-26.0); ABG TOTAL CO2 25.6 MEQ/L (23.0-31.0); ABG pH (ARTERIAL) 7.417 UNITS (7.350-7.450)
[2022-06-27] MEDS ORDERED: BISACODYL 10MG SUPP PR ONE (09:55)
[2022-06-27] MEDS ORDERED: LIDOCAINE 2% 5ML JELLY UROJET As Ordered ONE (12:17)
[2022-06-27] MEDS: PIPERACILLIN/TAZOBACTAM SOD 3.375 GM in D5W MINI-BAG PLUS 50 ML IV SCH ×3 (12:39→21:36)
[2022-06-27 14:00] VITALS: BP 145/79
[2022-06-27 17:51] LABS: BLOOD UREA NITROGEN 22 MG/DL (9-23); CALCIUM LEVEL 7.6 MG/DL (8.3-10.6); CARBON DIOXIDE LEVEL 32 MMOL/L (20-31); CHLORIDE LEVEL 105 MMOL/L (98-107); CREATININE FOR GFR 1.13 MG/DL (0.70-1.30); GLOMERULAR FILTRATION RATE > 60.0 (>35); GLUCOSE, FASTING 204 MG/DL (74-106); POTASSIUM SERUM 3.4 MMOL/L (3.5-5.1); SODIUM LEVEL 143 MMOL/L (136-145)
[2022-06-27] MEDS ORDERED: POTASSIUM CHLORIDE INJ 40 MEQ in NS 1,000 ML IV SCH (17:55)
[2022-06-27] MEDS: KCL 40MEQ in NS 1000ML 1,000 ML IV SCH (18:06)
[2022-06-27 22:00] VITALS: BP 116/60
[2022-06-27] MEDS: HYDROMORPHONE HCL 0.5 MG/ 0.5 ML SYRINGE IV PRN (23:00)
[2022-06-28] MEDS: KCL 40MEQ in NS 1000ML 1,000 ML IV SCH ×3 (03:21→21:49)
[2022-06-28] MEDS: PIPERACILLIN/TAZOBACTAM SOD 3.375 GM in D5W MINI-BAG PLUS 50 ML IV SCH ×4 (03:21→22:08)
[2022-06-28 05:40] VITALS: BP 117/60
[2022-06-28] MEDS: INSULIN LISPRO (NovoLOG) PER UNIT SC SCH ×4 (06:00→18:00)
[2022-06-28 07:22] LABS: BASO % 0.5 % (0.0-1.0); EOS # 0.2 10^3/uL (0.0-0.5); EOS % 2.3 % (0.0-3.0); HEMATOCRIT 34.5 % (42.0-52.0); LYMPH # 0.7 10^3/uL (1.5-5.0); LYMPH % 8.9 % (24.0-44.0); MEAN CORPUSCULAR HEMOGLOBIN 25.6 pg (27.0-33.0); MEAN CORPUSCULAR HGB CONC 29.6 g/dl (32.0-36.5); MEAN CORPUSCULAR VOLUME 86.5 fl (80.0-96.0); MONO # 1.5 10^3/uL (0.0-0.8); MONO % 18.5 % (2.0-8.0); NEUTROPHILS # 5.5 10^3/uL (1.5-8.5); NEUTROPHILS % 69.3 % (36.0-66.0); PLATELET COUNT, AUTOMATED 106 10^3/uL (150-450); RED BLOOD COUNT 3.99 10^6/uL (4.30-6.10); WHITE BLOOD COUNT 7.9 10^3/uL (4.0-10.0)
[2022-06-28 07:33] LABS: CALCIUM LEVEL 7.3 MG/DL (8.3-10.6); CREATININE FOR GFR 1.23 MG/DL (0.70-1.30); GLOMERULAR FILTRATION RATE 59.8 (>35); HEMOGLOBIN 10.2 g/dl (13.5-17.5); POTASSIUM SERUM 3.8 MMOL/L (3.5-5.1)
[2022-06-28] MEDS: PANTOPRAZOLE 40MG VIAL IV SCH (09:25)
[2022-06-28] MEDS: HEPARIN SOD (PORCINE) 5000UNITS/ML 1ML VIAL/SYRINGE SC SCH ×2 (09:26→21:59)
[2022-06-28] MEDS: BISACODYL 10MG SUPP PR SCH (10:11)
[2022-06-28] MEDS ORDERED: BISACODYL 10MG SUPP PR ONE ×2 (10:20→21:00)
[2022-06-28] MEDS: HALOPERIDOL 5MG/ML 1ML VIAL IV PRN ×2 (10:42→17:08)
[2022-06-28 14:00] VITALS: BP 121/57
[2022-06-28] MEDS: HYDROMORPHONE HCL 0.5 MG/ 0.5 ML SYRINGE IV PRN (17:08)
[2022-06-28 21:05] VITALS: BP 143/73
[2022-06-29] MEDS: INSULIN LISPRO (NovoLOG) PER UNIT SC SCH ×5 (00:37→23:56)
[2022-06-29] MEDS: PIPERACILLIN/TAZOBACTAM SOD 3.375 GM in D5W MINI-BAG PLUS 50 ML IV SCH ×4 (04:02→21:34)
[2022-06-29] MEDS: KCL 40MEQ in NS 1000ML 1,000 ML IV SCH (05:17)
[2022-06-29 06:03] VITALS: BP 139/71
[2022-06-29 07:10] LABS: BASO % 0.5 % (0.0-1.0); EOS # 0.2 10^3/uL (0.0-0.5); EOS % 2.1 % (0.0-3.0); HEMATOCRIT 34.2 % (42.0-52.0); HEMOGLOBIN 10.4 g/dl (13.5-17.5); LYMPH # 0.6 10^3/uL (1.5-5.0); LYMPH % 7.5 % (24.0-44.0); MEAN CORPUSCULAR HEMOGLOBIN 26.1 pg (27.0-33.0); MEAN CORPUSCULAR HGB CONC 30.4 g/dl (32.0-36.5); MEAN CORPUSCULAR VOLUME 85.9 fl (80.0-96.0); MONO # 1.4 10^3/uL (0.0-0.8); MONO % 16.8 % (2.0-8.0); NEUTROPHILS # 6.2 10^3/uL (1.5-8.5); PLATELET COUNT, AUTOMATED 101 10^3/uL (150-450); RED BLOOD COUNT 3.98 10^6/uL (4.30-6.10); WHITE BLOOD COUNT 8.5 10^3/uL (4.0-10.0)
[2022-06-29 07:39] LABS: CALCIUM LEVEL 7.4 MG/DL (8.3-10.6); CREATININE FOR GFR 1.43 MG/DL (0.70-1.30); GLOMERULAR FILTRATION RATE 50.3 (>35); POTASSIUM SERUM 4.1 MMOL/L (3.5-5.1)
[2022-06-29] MEDS: PANTOPRAZOLE 40MG VIAL IV SCH (08:56)
[2022-06-29] MEDS: BISACODYL 10MG SUPP PR SCH (08:56)
[2022-06-29] MEDS: HEPARIN SOD (PORCINE) 5000UNITS/ML 1ML VIAL/SYRINGE SC SCH ×2 (09:00→21:35)
[2022-06-29] MEDS ORDERED: NS 1,000 ML IV SCH (10:40)
[2022-06-29 14:30] VITALS: BP 136/67
[2022-06-29] MEDS: SIMETHICONE 80MG CHEW TAB PO SCH ×2 (16:40→21:35)
[2022-06-29] MEDS: QUEtiapine FUMARATE 25 MG TAB PO SCH (16:40)
[2022-06-29 22:00] VITALS: BP 137/67
[2022-06-30] MEDS: PIPERACILLIN/TAZOBACTAM SOD 3.375 GM in D5W MINI-BAG PLUS 50 ML IV SCH ×4 (04:13→20:29)
[2022-06-30] MEDS: INSULIN LISPRO (NovoLOG) PER UNIT SC SCH ×3 (05:57→17:55)
[2022-06-30 06:00] VITALS: BP 152/65
[2022-06-30 07:30] LABS: BASO # 0.1 10^3/uL (0.0-0.2); BASO % 1.1 % (0.0-1.0); EOS # 0.2 10^3/uL (0.0-0.5); EOS % 2.5 % (0.0-3.0); HEMATOCRIT 37.8 % (42.0-52.0); HEMOGLOBIN 11.6 g/dl (13.5-17.5); LYMPH # 0.9 10^3/uL (1.5-5.0); LYMPH % 12.3 % (24.0-44.0); MEAN CORPUSCULAR HEMOGLOBIN 25.9 pg (27.0-33.0); MEAN CORPUSCULAR HGB CONC 30.7 g/dl (32.0-36.5); MEAN CORPUSCULAR VOLUME 84.4 fl (80.0-96.0); MONO # 1.1 10^3/uL (0.0-0.8); MONO % 14.9 % (2.0-8.0); NEUTROPHILS # 5.2 10^3/uL (1.5-8.5); NEUTROPHILS % 67.8 % (36.0-66.0); PLATELET COUNT, AUTOMATED 113 10^3/uL (150-450); RED BLOOD COUNT 4.48 10^6/uL (4.30-6.10); WHITE BLOOD COUNT 7.6 10^3/uL (4.0-10.0)
[2022-06-30 07:54] LABS: CREATININE FOR GFR 1.5 MG/DL (0.70-1.30); GLOMERULAR FILTRATION RATE 47.6 (>35); POTASSIUM SERUM 3.9 MMOL/L (3.5-5.1)
[2022-06-30 09:00] VITALS: BP 172/82
[2022-06-30] MEDS: PANTOPRAZOLE 40MG VIAL IV SCH (09:24)
[2022-06-30] MEDS: BISACODYL 10MG SUPP PR SCH (09:42)
[2022-06-30] MEDS: SIMETHICONE 80MG CHEW TAB PO SCH ×4 (09:42→20:29)
[2022-06-30] MEDS: HEPARIN SOD (PORCINE) 5000UNITS/ML 1ML VIAL/SYRINGE SC SCH ×2 (09:42→20:28)
[2022-06-30 10:00] VITALS: BP 172/82
[2022-06-30] MEDS ORDERED: ATENOLOL 12.5MG PER 1/2 TABLET PO ONE (12:00)
[2022-06-30 14:00] VITALS: BP 193/94
[2022-06-30] MEDS: NS 0.45% 1,000 ML IV SCH ×2 (15:40→20:29)
[2022-06-30] MEDS: QUEtiapine FUMARATE 25 MG TAB PO SCH (15:42)
[2022-06-30] MEDS ORDERED: INSULIN LISPRO (NovoLOG) PER UNIT SC SCH (21:00)
[2022-06-30 22:00] VITALS: BP 116/47
[2022-07-01] MEDS: PIPERACILLIN/TAZOBACTAM SOD 3.375 GM in D5W MINI-BAG PLUS 50 ML IV SCH ×2 (04:09→09:40)
[2022-07-01 05:15] LABS: BASO # 0.1 10^3/uL (0.0-0.2); BASO % 0.8 % (0.0-1.0); EOS # 0.2 10^3/uL (0.0-0.5); EOS % 2.3 % (0.0-3.0); HEMATOCRIT 35.1 % (42.0-52.0); HEMOGLOBIN 10.9 g/dl (13.5-17.5); LYMPH # 0.9 10^3/uL (1.5-5.0); LYMPH % 10.2 % (24.0-44.0); MEAN CORPUSCULAR HEMOGLOBIN 26.4 pg (27.0-33.0); MEAN CORPUSCULAR HGB CONC 31.1 g/dl (32.0-36.5); MONO # 1.4 10^3/uL (0.0-0.8); MONO % 17.1 % (2.0-8.0); NEUTROPHILS # 5.7 10^3/uL (1.5-8.5); NEUTROPHILS % 67.6 % (36.0-66.0); RED BLOOD COUNT 4.13 10^6/uL (4.30-6.10); WHITE BLOOD COUNT 8.4 10^3/uL (4.0-10.0)
[2022-07-01 05:31] LABS: PLATELET COUNT, AUTOMATED 98 10^3/uL (150-450)
[2022-07-01 05:42] LABS: CALCIUM LEVEL 7.6 MG/DL (8.3-10.6); CREATININE FOR GFR 1.48 MG/DL (0.70-1.30); GLOMERULAR FILTRATION RATE 48.3 (>35); POTASSIUM SERUM 3.7 MMOL/L (3.5-5.1)
[2022-07-01 06:00] VITALS: BP 165/89
[2022-07-01] MEDS ORDERED: NS 1,000 ML IV SCH (07:30)
[2022-07-01] MEDS ORDERED: NS 1,000 ML IV ONE (07:40)
[2022-07-01] MEDS ORDERED: atenoloL 25 MG TAB PO ONE (07:40)
[2022-07-01] MEDS ORDERED: AMOX875T2 PO (07:46)
[2022-07-01] MEDS ORDERED: SIME80TA16 PO (07:46)
[2022-07-01] MEDS ORDERED: BACI1CAP PO (07:46)
[2022-07-01] MEDS ORDERED: AMLO1TAB25 PO (07:49)
[2022-07-01] MEDS ORDERED: SELF1KIT MC (07:49)
[2022-07-01] MEDS ORDERED: ATEN25TA PO (07:49)
[2022-07-01] MEDS ORDERED: GLIP-163 PO (07:52)
[2022-07-01] MEDS ORDERED: GLUC1TES2 XX (07:54)
[2022-07-01] MEDS ORDERED: BLOOKIT21 XX (07:54)
[2022-07-01] MEDS ORDERED: ALCOPAD25 TOP (07:54)
[2022-07-01] MEDS ORDERED: LANC30MI XX (07:54)
[2022-07-01] MEDS: INSULIN LISPRO (NovoLOG) PER UNIT SC SCH ×2 (08:04→12:45)
[2022-07-01 09:00] VITALS: BP 119/75
[2022-07-01 09:30] VITALS: BP 119/75
[2022-07-01] MEDS: SIMETHICONE 80MG CHEW TAB PO SCH (09:40)
[2022-07-01] MEDS: BISACODYL 10MG SUPP PR SCH (09:40)
[2022-07-01] MEDS: HEPARIN SOD (PORCINE) 5000UNITS/ML 1ML VIAL/SYRINGE SC SCH (09:40)
[2022-07-01] MEDS: PANTOPRAZOLE 40MG VIAL IV SCH (09:40)
== END 2022-07-01 13:55 | disposition home health service (06) | DRG 389 ==
LOC: M ED 14:02 → M ED INP 20:42 → ENRESERV 23:56 → M MS5PR 06-27 01:40
PROVIDERS: ADMIT Internal Medicine; ATTEND General Practice
DX: K56.51 Intestinal adhesions [bands], with partial obstruction (principal); E87.20 Acidosis, unspecified; N17.9 Acute kidney failure, unspecified; F05 Delirium due to known physiological condition; E11.42 Type 2 diabetes mellitus with diabetic polyneuropathy; E83.42 Hypomagnesemia; G25.81 Restless legs syndrome; I25.10 Atherosclerotic heart disease of native coronary artery without angina pectoris; M54.16 Radiculopathy, lumbar region; R33.9 Retention of urine, unspecified; M51.36 Other intervertebral disc degeneration, lumbar region; D50.9 Iron deficiency anemia, unspecified; I10 Essential (primary) hypertension; E78.00 Pure hypercholesterolemia, unspecified; Z87.891 Personal history of nicotine dependence; Z79.82 Long term (current) use of aspirin; Z79.84 Long term (current) use of oral hypoglycemic drugs; Z79.899 Other long term (current) drug therapy; Z20.822 Contact with and (suspected) exposure to COVID-19; Z92.3 Personal history of irradiation; Z85.46 Personal history of malignant neoplasm of prostate; Z95.5 Presence of coronary angioplasty implant and graft

== ENCOUNTER 2022-07-04 21:55 | Emergency (ER) | payer MEDICARE, OTHER, BC ==
[~2022-07-04] VITALS: Ht 180.3 cm; Wt 78.2 kg
[~2022-07-04 21:55] MED LIST changes: +ALCOPAD25 TOP; +AMLO1TAB25 PO; +AMOX875T2 PO; +ATEN25TA PO; +BACI1CAP PO; +BLOOKIT21 XX; +DULO1CAP4 PO; +GABA-282 PO; +GLIM1TAB4 PO; +GLIP-163 PO; +GLUC1TES2 XX; +LANC30MI XX; +SELF1KIT MC; +SIME80TA16 PO
[2022-07-04 21:56] VITALS: BP 150/86
[2022-07-04 23:30] LABS: BASO # 0.1 10^3/uL (0.0-0.2); BASO % 1.2 % (0.0-1.0); EOS # 0.2 10^3/uL (0.0-0.5); HEMATOCRIT 37.3 % (42.0-52.0); HEMOGLOBIN 11.6 g/dl (13.5-17.5); LYMPH % 13.3 % (24.0-44.0); MEAN CORPUSCULAR HEMOGLOBIN 26.1 pg (27.0-33.0); MEAN CORPUSCULAR HGB CONC 31.1 g/dl (32.0-36.5); MEAN CORPUSCULAR VOLUME 83.8 fl (80.0-96.0); MONO # 1.2 10^3/uL (0.0-0.8); MONO % 15.8 % (2.0-8.0); NEUTROPHILS # 4.5 10^3/uL (1.5-8.5); NEUTROPHILS % 61.8 % (36.0-66.0); PLATELET COUNT, AUTOMATED 114 10^3/uL (150-450); RED BLOOD COUNT 4.45 10^6/uL (4.30-6.10); WHITE BLOOD COUNT 7.3 10^3/uL (4.0-10.0)
[2022-07-04 23:49] LABS: BLOOD UREA NITROGEN 14 MG/DL (9-23); CALCIUM LEVEL 8.6 MG/DL (8.3-10.6); CARBON DIOXIDE LEVEL 27 MMOL/L (20-31); CHLORIDE LEVEL 100 MMOL/L (98-107); GLOMERULAR FILTRATION RATE > 60.0 (>35); GLUCOSE, FASTING 153 MG/DL (74-106); POTASSIUM SERUM 3.7 MMOL/L (3.5-5.1); SODIUM LEVEL 136 MMOL/L (136-145)
[2022-07-05 00:05] LABS: INR 1.01; PROTHROMBIN TIME 13.5 SECONDS (12.5-14.5)
[2022-07-05 00:06] LABS: PARTIAL THROMBOPLASTIN TIME 27.1 SECONDS (24.8-34.2)
[2022-07-05] MEDS ORDERED: OXYB5TAB10 PO (00:58)
== END 2022-07-05 01:35 | disposition home or self-care (01) ==
LOC: M ED 21:55
DX: R31.0 Gross hematuria (principal); N32.89 Other specified disorders of bladder; Z79.82 Long term (current) use of aspirin; Z91.041 Radiographic dye allergy status

== ENCOUNTER → 2022-07-22 | Outpatient (CLI) | payer MEDICARE, OTHER, BC ==
[~2022-07-22] MED LIST changes: +OXYB5TAB10 PO
[2022-07-22 16:53] LABS: HEMATOCRIT 40.8 % (42.0-52.0); HEMOGLOBIN 12.1 g/dl (13.5-17.5); MEAN CORPUSCULAR HEMOGLOBIN 25.7 pg (27.0-33.0); MEAN CORPUSCULAR HGB CONC 29.7 g/dl (32.0-36.5); MEAN CORPUSCULAR VOLUME 86.6 fl (80.0-96.0); PLATELET COUNT, AUTOMATED 172 10^3/uL (150-450); RED BLOOD COUNT 4.71 10^6/uL (4.30-6.10); WHITE BLOOD COUNT 5.3 10^3/uL (4.0-10.0)
[2022-07-22 17:23] LABS: ALBUMIN 3.6 G/DL (3.2-5.2); ALKALINE PHOSPHATASE 53 U/L (46-116); ALT/SGPT 21 U/L (7.0-40); AST/SGOT 11 U/L (<34); BILIRUBIN,TOTAL 1.1 MG/DL (0.3-1.2); BLOOD UREA NITROGEN 25 MG/DL (9-23); CALCIUM LEVEL 8.6 MG/DL (8.3-10.6); CARBON DIOXIDE LEVEL 31 MMOL/L (20-31); CHLORIDE LEVEL 99 MMOL/L (98-107); CREATININE FOR GFR 1.13 MG/DL (0.70-1.30); GLOMERULAR FILTRATION RATE > 60.0 (>35); GLUCOSE, FASTING 355 MG/DL (74-106); POTASSIUM SERUM 4.3 MMOL/L (3.5-5.1); SODIUM LEVEL 134 MMOL/L (136-145); TOTAL PROTEIN 6.6 G/DL (5.7-8.2)
== END ==
LOC: M WUC 11:31
PROVIDERS: ATTEND Physician Assistant
DX: E11.8 Type 2 diabetes mellitus with unspecified complications (principal); I11.9 Hypertensive heart disease without heart failure

== ENCOUNTER → 2022-08-19 | Outpatient (CLI) | payer MEDICARE, OTHER, BC ==
[2022-08-19 13:54] LABS: BLOOD UREA NITROGEN 17 MG/DL (9-23); CALCIUM LEVEL 8.8 MG/DL (8.3-10.6); CARBON DIOXIDE LEVEL 30 MMOL/L (20-31); CHLORIDE LEVEL 104 MMOL/L (98-107); CREATININE FOR GFR 1.18 MG/DL (0.70-1.30); GLOMERULAR FILTRATION RATE > 60.0 (>35); GLUCOSE, FASTING 335 MG/DL (74-106); POTASSIUM SERUM 4.4 MMOL/L (3.5-5.1); SODIUM LEVEL 138 MMOL/L (136-145)
[2022-08-19 13:59] LABS: TOTAL 25(OH) VITAMIN D 67.4 NG/ML (20.0-100.0)
[2022-08-19 14:06] LABS: HEMOGLOBIN A1c 8.8 % (4.0-6.0)
== END ==
LOC: M WUC 10:49
PROVIDERS: ATTEND Family Medicine
DX: E11.8 Type 2 diabetes mellitus with unspecified complications (principal); E55.9 Vitamin D deficiency, unspecified

== ENCOUNTER → 2022-08-26 | Outpatient (REF) | payer MEDICARE, OTHER ==
[2022-08-26 17:23] LABS: APPEARANCE, URINE CLEAR (CLEAR); BACTERIA, URINE AUTO NEGATIVE (NEGATIVE); BILIRUBIN, URINE AUTO NEGATIVE (NEGATIVE); BLOOD, URINE BLOOD NEGATIVE (NEGATIVE); COLOR, URINE YELLOW (YELLOW); GLUCOSE, URINE (UA) AUTO 3+ mg/dL (NEGATIVE); KETONE, URINE AUTO NEGATIVE (NEGATIVE); LEUKOCYTE ESTERASE, URINE AUTO NEGATIVE (NEGATIVE); MUCUS, URINE SMALL (NEGATIVE); NITRITE, URINE AUTO NEGATIVE (NEGATIVE); PROTEIN, URINE AUTO NEGATIVE (NEGATIVE); RBC, URINE AUTO 0 /HPF (0-3); SPECIFIC GRAVITY URINE AUTO 1.028 (1.002-1.035); SQUAMOUS EPITHELIAL CELL UR AU 0 /HPF (0-6); UROBILINOGEN, URINE AUTO 0.2 mg/dL (0.0-2.0); WBC, URINE AUTO 0 /HPF (0-3)
== END ==
LOC: M SFHCADAM 14:42
PROVIDERS: ATTEND Physician Assistant
DX: R31.9 Hematuria, unspecified (principal)

== ENCOUNTER → 2022-09-25 | Outpatient (CLI) | payer MEDICARE, OTHER ==
[2022-09-25 12:02] LABS: HEMATOCRIT 42.6 % (42.0-52.0); HEMOGLOBIN 12.7 g/dl (13.5-17.5); MEAN CORPUSCULAR HEMOGLOBIN 25.6 pg (27.0-33.0); MEAN CORPUSCULAR HGB CONC 29.8 g/dl (32.0-36.5); MEAN CORPUSCULAR VOLUME 85.7 fl (80.0-96.0); PLATELET COUNT, AUTOMATED 126 10^3/uL (150-450); RED BLOOD COUNT 4.97 10^6/uL (4.30-6.10); WHITE BLOOD COUNT 6.3 10^3/uL (4.0-10.0)
[2022-09-25 12:26] LABS: ALBUMIN 3.8 G/DL (3.2-5.2); ALKALINE PHOSPHATASE 39 U/L (46-116); ALT/SGPT < 9 U/L (7.0-40); AST/SGOT 10 U/L (<34); BILIRUBIN,TOTAL 1.1 MG/DL (0.3-1.2); BLOOD UREA NITROGEN 19 MG/DL (9-23); CALCIUM LEVEL 8.6 MG/DL (8.3-10.6); CARBON DIOXIDE LEVEL 27 MMOL/L (20-31); CHLORIDE LEVEL 105 MMOL/L (98-107); CHOLESTEROL LEVEL 70 MG/DL (<200); CHOLESTEROL RISK RATIO 2.18 (<5); CREATININE FOR GFR 1.06 MG/DL (0.70-1.30); GLOMERULAR FILTRATION RATE > 60.0 (>35); GLUCOSE, FASTING 188 MG/DL (74-106); LDL CHOLESTEROL 21.6 MG/DL (<100); POTASSIUM SERUM 4.4 MMOL/L (3.5-5.1); SODIUM LEVEL 140 MMOL/L (136-145); TOTAL PROTEIN 6.4 G/DL (5.7-8.2); TRIGLYCERIDES LEVEL 82 MG/DL (<150)
[2022-09-25 12:53] LABS: HEMOGLOBIN A1c 8.9 % (4.0-6.0)
== END ==
LOC: M WUC 10:12
PROVIDERS: ATTEND Family Medicine
DX: I95.1 Orthostatic hypotension (principal); E11.8 Type 2 diabetes mellitus with unspecified complications; E78.2 Mixed hyperlipidemia

== ENCOUNTER → 2022-09-30 | Outpatient (CLI) | payer MEDICARE, OTHER | LOC: M PLAIMG 12:15 | PROVIDERS: ATTEND Psychiatry & Neurology Neurology | DX: G91.2 (Idiopathic) normal pressure hydrocephalus (principal); R26.81 Unsteadiness on feet ==

== ENCOUNTER → 2022-10-26 | Outpatient (REF) | payer MEDICARE, OTHER ==
[2022-10-26 19:20] LABS: APPEARANCE, URINE CLEAR (CLEAR); BACTERIA, URINE AUTO NEGATIVE (NEGATIVE); BILIRUBIN, URINE AUTO NEGATIVE (NEGATIVE); BLOOD, URINE BLOOD NEGATIVE (NEGATIVE); COLOR, URINE YELLOW (YELLOW); GLUCOSE, URINE (UA) AUTO 3+ mg/dL (NEGATIVE); KETONE, URINE AUTO TRACE mg/dL (NEGATIVE); LEUKOCYTE ESTERASE, URINE AUTO NEGATIVE (NEGATIVE); MUCUS, URINE SMALL (NEGATIVE); NITRITE, URINE AUTO NEGATIVE (NEGATIVE); PROTEIN, URINE AUTO NEGATIVE (NEGATIVE); RBC, URINE AUTO 0 /HPF (0-3); SPECIFIC GRAVITY URINE AUTO 1.026 (1.002-1.035); SQUAMOUS EPITHELIAL CELL UR AU 0 /HPF (0-6); UROBILINOGEN, URINE AUTO 0.2 mg/dL (0.0-2.0); WBC, URINE AUTO 0 /HPF (0-3)
== END ==
LOC: M SMT 16:57
PROVIDERS: ATTEND Physician Assistant
DX: R31.0 Gross hematuria (principal)

== ENCOUNTER → 2022-11-16 | Outpatient (CLI) | payer MEDICARE, OTHER | LOC: M WUC 12:23 | PROVIDERS: ATTEND Physician Assistant | DX: S20.212A Contusion of left front wall of thorax, initial encounter (principal); W18.30XA Fall on same level, unspecified, initial encounter; Y92.009 Unspecified place in unspecified non-institutional (private) residence as the place of occurrence of the external cause ==

== ENCOUNTER 2022-12-26 12:36 | Inpatient (IN) | payer MEDICARE, BC, OTHER ==
[~2022-12-26] VITALS: Ht 177.8 cm; Wt 72.6 kg
[2022-12-26 13:52] LABS: HEMATOCRIT 45.7 % (42.0-52.0); HEMOGLOBIN 13.5 g/dl (13.5-17.5); MEAN CORPUSCULAR HEMOGLOBIN 25.3 pg (27.0-33.0); MEAN CORPUSCULAR HGB CONC 29.5 g/dl (32.0-36.5); MEAN CORPUSCULAR VOLUME 85.6 fl (80.0-96.0); PLATELET COUNT, AUTOMATED 137 10^3/uL (150-450); RED BLOOD COUNT 5.34 10^6/uL (4.30-6.10); WHITE BLOOD COUNT 12.5 10^3/uL (4.0-10.0)
[2022-12-26 13:54] LABS: LIPASE 19 U/L (12-53)
[2022-12-26 13:56] LABS: ALKALINE PHOSPHATASE 54 U/L (46-116); ALT/SGPT 13 U/L (7.0-40); AST/SGOT < 8 U/L (<34); BILIRUBIN,DIRECT 0.9 MG/DL (<0.4); BILIRUBIN,TOTAL 1.9 MG/DL (0.3-1.2); TOTAL PROTEIN 7.4 G/DL (5.7-8.2)
[2022-12-26] MEDS ORDERED: NS 500 ML IV ONE (14:00)
[2022-12-26 14:16] LABS: OSMOLALITY SERUM 323 MOSM/KG (280-301)
[2022-12-26 14:19] LABS: ETHYL ALCOHOL (ETHANOL) < 0.003 % (0.000-0.010)
[2022-12-26 14:20] LABS: ACETAMINOPHEN LEVEL < 2.0 UG/ML (10.0-20.0); SALICYLATE LEVEL < 3.0 MG/DL (<30)
[2022-12-26 14:23] LABS: THYROID STIMULATING HORMONE 0.883 uIU/ML (0.55-4.78)
[2022-12-26 14:44] LABS: ATYPICAL LYMPH 4 % (0-5); BASOPHILS 1 % (0-1); LYMPHOCYTES 11 % (16-44); METAMYELOCYTES 10 % (0-0); MONOCYTES 11 % (0-5); MYELOCYTES 16 % (0-0); NEUTROPHILS 27 % (28-66); PLATELET ESTIMATE NORMAL (NORMAL)
[2022-12-26 14:45] LABS: ANISOCYTOSIS 1+; POIKILOCYTOSIS 1+
[2022-12-26] MEDS ORDERED: NS 1,710 ML in IV 1 EA IV ONE (14:50)
[2022-12-26] MEDS ORDERED: PIPERACILLIN/TAZOBACTAM SOD 4.5 GM in D5W MINI-BAG PLUS 50 ML IV ONE (14:50)
[2022-12-26 15:08] LABS: RSV AMPLIFICATION NEGATIVE (NEGATIVE)
[2022-12-26] MEDS ORDERED: ONDANSETRON 4MG 2ML VIAL IV PRN (18:05)
[2022-12-26] MEDS ORDERED: MIRALAX *UNIT DOSE* 17GM PACKET PO PRN (18:10)
[2022-12-26] MEDS ORDERED: LORazepam 2 MG/ML 1ML VIAL IV STA (18:22)
[2022-12-26] MEDS ORDERED: GLUCOSE 4GM CHEW TABLET PO PRN (18:25)
[2022-12-26] MEDS ORDERED: GLUCAGON INJ 1MG VIAL SC PRN (18:25)
[2022-12-26] MEDS ORDERED: DEXTROSE 50% 50ML SYRINGE IV PRN (18:25)
[2022-12-26 19:25] LABS: CREATININE FOR GFR 1.41 MG/DL (0.70-1.30); POTASSIUM SERUM 4.4 MMOL/L (3.5-5.1)
[2022-12-26 19:26] LABS: C REACTIVE PROTEIN QUANTITATIV 19.9 MG/DL (<1.0)
[2022-12-26 19:47] LABS: PROCALCITONIN 3.19 ng/ml
[2022-12-26] MEDS ORDERED: ATEN100T PO (20:07)
[2022-12-26] MEDS ORDERED: JARD1TAB3 PO (20:07)
[2022-12-26] MEDS ORDERED: METF500T13 PO ×2 (20:07)
[2022-12-26] MEDS ORDERED: HOME MED LIST COMPLETE! XX SCH (20:10)
[2022-12-26] MEDS: INSULIN LISPRO (NovoLOG) PER UNIT SC SCH (20:19)
[2022-12-26] MEDS: PIPERACILLIN/TAZOBACTAM SOD 3.375 GM in D5W MINI-BAG PLUS 50 ML IV SCH (20:19)
[2022-12-26] MEDS ORDERED: PILL CUTTER 1 EACH XX PRN (20:50)
[2022-12-26] MEDS: atenoloL 50 MG TAB PO SCH (21:00)
[2022-12-26] MEDS ORDERED: OLANZapine INTRAMUSCULAR 10MG VIAL IM ONE (21:00)
[2022-12-26 21:04] VITALS: BP 107/56; TEMP 98.2; O2SAT 93
[2022-12-26] MEDS: ATORVASTATIN 20 MG TAB PO SCH (21:27)
[2022-12-26] MEDS: GABAPENTIN 300 MG CAP PO SCH (21:27)
[2022-12-26] MEDS: LR 1,000 ML IV SCH (22:29)
[2022-12-27] MEDS: PIPERACILLIN/TAZOBACTAM SOD 3.375 GM in D5W MINI-BAG PLUS 50 ML IV SCH ×4 (02:09→20:50)
[2022-12-27 06:00] VITALS: BP 130/80; TEMP 97.7; O2SAT 93
[2022-12-27 06:08] LABS: HEMATOCRIT 39.3 % (42.0-52.0); HEMOGLOBIN 11.7 g/dl (13.5-17.5); MEAN CORPUSCULAR HEMOGLOBIN 25.5 pg (27.0-33.0); MEAN CORPUSCULAR HGB CONC 29.8 g/dl (32.0-36.5); MEAN CORPUSCULAR VOLUME 85.8 fl (80.0-96.0); PLATELET COUNT, AUTOMATED 111 10^3/uL (150-450); RED BLOOD COUNT 4.58 10^6/uL (4.30-6.10); WHITE BLOOD COUNT 10.8 10^3/uL (4.0-10.0)
[2022-12-27 06:21] LABS: CALCIUM LEVEL 7.9 MG/DL (8.3-10.6); CREATININE FOR GFR 1.41 MG/DL (0.70-1.30); MAGNESIUM LEVEL 2.1 MG/DL (1.8-2.4); POTASSIUM SERUM 3.8 MMOL/L (3.5-5.1)
[2022-12-27 06:46] LABS: PROCALCITONIN 3.37 ng/ml
[2022-12-27] MEDS: ENOXAPARIN 40MG/0.4ML SYRINGE (J1650 PER 10MG) SC SCH (08:17)
[2022-12-27] MEDS: GABAPENTIN 300 MG CAP PO SCH ×3 (08:18→20:50)
[2022-12-27] MEDS: INSULIN LISPRO (NovoLOG) PER UNIT SC SCH ×4 (08:18→20:31)
[2022-12-27] MEDS: CYANOCOBALAMIN 500 MCG TAB PO SCH (08:19)
[2022-12-27] MEDS: DULoxetine 20MG CAP (CYMBALTA) PO SCH (08:19)
[2022-12-27] MEDS: ASPIRIN 81MG CHEW TABLET PO SCH (08:19)
[2022-12-27] MEDS: FINASTERIDE 5MG TAB PO SCH (08:19)
[2022-12-27] MEDS ORDERED: DOCUSATE SODIUM 100MG CAPSULE PO SCH (09:00)
[2022-12-27] MEDS: LR 1,000 ML IV SCH (13:19)
[2022-12-27 14:00] VITALS: BP 103/55; TEMP 97.5
[2022-12-27] MEDS: LACTOBACILLUS ACIDOPHILUS CAP (BACID) PO SCH (17:32)
[2022-12-27 20:00] VITALS: BP 109/55; TEMP 97.9; O2SAT 99
[2022-12-27] MEDS: ATORVASTATIN 20 MG TAB PO SCH (20:50)
[2022-12-27 20:52] VITALS: BP 107/46
[2022-12-27] MEDS: atenoloL 50 MG TAB PO SCH (20:52)
[2022-12-27] MEDS ORDERED: OLANZapine INTRAMUSCULAR 10MG VIAL IM ONE (23:00)
[2022-12-28] MEDS: PIPERACILLIN/TAZOBACTAM SOD 3.375 GM in D5W MINI-BAG PLUS 50 ML IV SCH ×3 (02:58→15:00)
[2022-12-28 05:51] VITALS: BP 105/47; TEMP 98.1; O2SAT 94
[2022-12-28 06:23] LABS: BASO % 0.5 % (0.0-1.0); EOS # 0.3 10^3/uL (0.0-0.5); EOS % 4.1 % (0.0-3.0); HEMATOCRIT 34.4 % (42.0-52.0); HEMOGLOBIN 10.5 g/dl (13.5-17.5); LYMPH # 0.7 10^3/uL (1.5-5.0); LYMPH % 8.8 % (24.0-44.0); MEAN CORPUSCULAR HEMOGLOBIN 25.8 pg (27.0-33.0); MEAN CORPUSCULAR HGB CONC 30.5 g/dl (32.0-36.5); MEAN CORPUSCULAR VOLUME 84.5 fl (80.0-96.0); MONO # 1.1 10^3/uL (0.0-0.8); MONO % 14.1 % (2.0-8.0); NEUTROPHILS # 5.8 10^3/uL (1.5-8.5); NEUTROPHILS % 71.9 % (36.0-66.0); RED BLOOD COUNT 4.07 10^6/uL (4.30-6.10); WHITE BLOOD COUNT 8.1 10^3/uL (4.0-10.0)
[2022-12-28] MEDS: LR 1,000 ML IV SCH ×2 (06:27→09:37)
[2022-12-28 06:39] LABS: BLOOD UREA NITROGEN 27 MG/DL (9-23); CALCIUM LEVEL 7.7 MG/DL (8.3-10.6); CARBON DIOXIDE LEVEL 25 MMOL/L (20-31); CHLORIDE LEVEL 111 MMOL/L (98-107); CREATININE FOR GFR 1.15 MG/DL (0.70-1.30); GLOMERULAR FILTRATION RATE > 60.0 (>35); GLUCOSE, FASTING 140 MG/DL (74-106); POTASSIUM SERUM 3.3 MMOL/L (3.5-5.1); SODIUM LEVEL 145 MMOL/L (136-145)
[2022-12-28] MEDS ORDERED: OLANZapine 5 MG TAB PO ONE (07:45)
[2022-12-28] MEDS ORDERED: POTASSIUM CHLORIDE 10MEQ SR TABLET PO ONE (07:45)
[2022-12-28 08:19] LABS: PLATELET COUNT, AUTOMATED 94 10^3/uL (150-450)
[2022-12-28 09:05] LABS: MAGNESIUM LEVEL 1.9 MG/DL (1.8-2.4)
[2022-12-28 09:19] LABS: PROCALCITONIN 1.98 ng/ml
[2022-12-28] MEDS: CYANOCOBALAMIN 500 MCG TAB PO SCH (09:35)
[2022-12-28] MEDS: LACTOBACILLUS ACIDOPHILUS CAP (BACID) PO SCH (09:35)
[2022-12-28] MEDS: DULoxetine 20MG CAP (CYMBALTA) PO SCH (09:35)
[2022-12-28] MEDS: INSULIN LISPRO (NovoLOG) PER UNIT SC SCH ×2 (09:35→12:48)
[2022-12-28] MEDS: ASPIRIN 81MG CHEW TABLET PO SCH (09:36)
[2022-12-28] MEDS: ENOXAPARIN 40MG/0.4ML SYRINGE (J1650 PER 10MG) SC SCH (09:36)
[2022-12-28] MEDS: GABAPENTIN 300 MG CAP PO SCH (09:36)
[2022-12-28] MEDS: FINASTERIDE 5MG TAB PO SCH (09:36)
[2022-12-28 14:00] VITALS: BP 140/68; TEMP 97.9; O2SAT 96
[2022-12-28] MEDS ORDERED: TRAD5TAB PO (15:24)
[2022-12-28] MEDS ORDERED: AMOXTAB PO (15:26)
== END 2022-12-28 16:34 | disposition home health service (06) | DRG 391 ==
LOC: M ED 12:36 → M ED INP 17:22 → INTOOBSV 17:22 → ENRESERV 20:01 → M MSPAV 21:13 → OBSVTOIN 12-27 06:40
PROVIDERS: ADMIT Internal Medicine; ATTEND Internal Medicine
DX: K52.9 Noninfective gastroenteritis and colitis, unspecified (principal); G93.41 Metabolic encephalopathy; E87.20 Acidosis, unspecified; K56.600 Partial intestinal obstruction, unspecified as to cause; R47.01 Aphasia; N17.9 Acute kidney failure, unspecified; N52.9 Male erectile dysfunction, unspecified; F41.9 Anxiety disorder, unspecified; F32.A Depression, unspecified; I25.10 Atherosclerotic heart disease of native coronary artery without angina pectoris; Z95.1 Presence of aortocoronary bypass graft; I10 Essential (primary) hypertension; E78.5 Hyperlipidemia, unspecified; E11.42 Type 2 diabetes mellitus with diabetic polyneuropathy; D50.9 Iron deficiency anemia, unspecified; Z85.46 Personal history of malignant neoplasm of prostate; R26.89 Other abnormalities of gait and mobility; Z87.891 Personal history of nicotine dependence; E11.65 Type 2 diabetes mellitus with hyperglycemia; Z79.82 Long term (current) use of aspirin; Z79.899 Other long term (current) drug therapy; Z91.041 Radiographic dye allergy status; Z91.048 Other nonmedicinal substance allergy status; F03.90 Unspecified dementia, unspecified severity, without behavioral disturbance, psychotic disturbance, mood disturbance, and anxiety; N40.0 Benign prostatic hyperplasia without lower urinary tract symptoms

== ENCOUNTER → 2023-01-06 | Outpatient (CLI) | payer MEDICARE, BC, OTHER ==
[~2023-01-06] MED LIST changes: +AMOXTAB PO; +JARD1TAB3 PO; +TRAD5TAB PO
[2023-01-06 17:40] LABS: BLOOD UREA NITROGEN 24 MG/DL (9-23); CALCIUM LEVEL 9.1 MG/DL (8.3-10.6); CARBON DIOXIDE LEVEL 28 MMOL/L (20-31); CHLORIDE LEVEL 103 MMOL/L (98-107); CREATININE FOR GFR 0.98 MG/DL (0.70-1.30); GLOMERULAR FILTRATION RATE > 60.0 (>35); GLUCOSE, FASTING 252 MG/DL (74-106); POTASSIUM SERUM 4.8 MMOL/L (3.5-5.1); SODIUM LEVEL 137 MMOL/L (136-145)
[2023-01-06 17:41] LABS: FREE T4 0.99 NG/DL (0.89-1.76); THYROID STIMULATING HORMONE 1.529 uIU/ML (0.55-4.78)
== END ==
LOC: M WUC 12:54
PROVIDERS: ATTEND Family Medicine
DX: E11.8 Type 2 diabetes mellitus with unspecified complications (principal); D64.89 Other specified anemias; Z85.46 Personal history of malignant neoplasm of prostate

== ENCOUNTER → 2023-01-06 | Outpatient (CLI) | payer MEDICARE, BC, OTHER ==
[2023-01-06 17:20] LABS: HEMATOCRIT 43.5 % (42.0-52.0); HEMOGLOBIN 12.9 g/dl (13.5-17.5); MEAN CORPUSCULAR HEMOGLOBIN 25.2 pg (27.0-33.0); MEAN CORPUSCULAR HGB CONC 29.7 g/dl (32.0-36.5); MEAN CORPUSCULAR VOLUME 85.1 fl (80.0-96.0); PLATELET COUNT, AUTOMATED 163 10^3/uL (150-450); RED BLOOD COUNT 5.11 10^6/uL (4.30-6.10); WHITE BLOOD COUNT 10.7 10^3/uL (4.0-10.0)
== END ==
LOC: M WUC 12:49
PROVIDERS: ATTEND Internal Medicine
DX: D64.89 Other specified anemias (principal)

== ENCOUNTER → 2023-01-06 | Outpatient (CLI) | payer MEDICARE, BC, OTHER | LOC: M WUC 12:52 | PROVIDERS: ATTEND Physician Assistant | DX: Z85.46 Personal history of malignant neoplasm of prostate (principal) ==

== ENCOUNTER → 2023-04-02 | Outpatient (CLI) | payer MEDICARE, BC, OTHER ==
[~2023-04-02] MED LIST changes: -OXYB5TAB10 PO; +OXYB5TAB11 PO
[2023-04-02 17:27] LABS: HEMOGLOBIN 12.9 g/dl (13.5-17.5); MEAN CORPUSCULAR HGB CONC 29.3 g/dl (32.0-36.5); MEAN CORPUSCULAR VOLUME 85.3 fl (80.0-96.0); PLATELET COUNT, AUTOMATED 142 10^3/uL (150-450); RED BLOOD COUNT 5.16 10^6/uL (4.30-6.10); WHITE BLOOD COUNT 6.4 10^3/uL (4.0-10.0)
[2023-04-02 17:42] LABS: HEMOGLOBIN A1c 8.2 % (4.0-6.0)
[2023-04-02 17:43] LABS: ALBUMIN 3.8 G/DL (3.2-5.2); ALKALINE PHOSPHATASE 45 U/L (46-116); ALT/SGPT 14 U/L (7.0-40); AST/SGOT < 8 U/L (<34); BILIRUBIN,TOTAL 1.3 MG/DL (0.3-1.2); BLOOD UREA NITROGEN 18 MG/DL (9-23); CALCIUM LEVEL 8.8 MG/DL (8.3-10.6); CARBON DIOXIDE LEVEL 28 MMOL/L (20-31); CHLORIDE LEVEL 106 MMOL/L (98-107); CHOLESTEROL LEVEL 97 MG/DL (<200); CHOLESTEROL RISK RATIO 2.29 (<5); CREATININE FOR GFR 0.97 MG/DL (0.70-1.30); GLOMERULAR FILTRATION RATE > 60.0 (>35); GLUCOSE, FASTING 270 MG/DL (74-106); HDL CHOLESTEROL 42.3 MG/DL (>40); LDL CHOLESTEROL 38.1 MG/DL (<100); NON-HDL-C 54.7 MG/DL; POTASSIUM SERUM 4.2 MMOL/L (3.5-5.1); SODIUM LEVEL 142 MMOL/L (136-145); TOTAL PROTEIN 6.8 G/DL (5.7-8.2); TRIGLYCERIDES LEVEL 83 MG/DL (<150)
[2023-04-02 17:44] LABS: THYROID STIMULATING HORMONE 1.792 uIU/ML (0.55-4.78)
[2023-04-02 17:45] LABS: FREE T4 1.04 NG/DL (0.89-1.76)
== END ==
LOC: M WUC 12:03
PROVIDERS: ATTEND Family Medicine
DX: I25.10 Atherosclerotic heart disease of native coronary artery without angina pectoris (principal); E78.2 Mixed hyperlipidemia; E11.8 Type 2 diabetes mellitus with unspecified complications; F02.B18 Dementia in other diseases classified elsewhere, moderate, with other behavioral disturbance

== ENCOUNTER → 2023-04-28 | Outpatient (CLI) | payer MEDICARE, BC, OTHER ==
[2023-04-28 16:33] LABS: BASO # 0.1 10^3/uL (0.0-0.2); BASO % 0.8 % (0.0-1.0); EOS # 0.2 10^3/uL (0.0-0.5); EOS % 2.1 % (0.0-3.0); HEMATOCRIT 39.1 % (42.0-52.0); HEMOGLOBIN 11.5 g/dl (13.5-17.5); LYMPH % 13.2 % (24.0-44.0); MEAN CORPUSCULAR HEMOGLOBIN 25.4 pg (27.0-33.0); MEAN CORPUSCULAR HGB CONC 29.4 g/dl (32.0-36.5); MEAN CORPUSCULAR VOLUME 86.3 fl (80.0-96.0); MONO # 1.2 10^3/uL (0.0-0.8); MONO % 15.1 % (2.0-8.0); NEUTROPHILS # 5.1 10^3/uL (1.5-8.5); NEUTROPHILS % 67.1 % (36.0-66.0); PLATELET COUNT, AUTOMATED 154 10^3/uL (150-450); RED BLOOD COUNT 4.53 10^6/uL (4.30-6.10); WHITE BLOOD COUNT 7.6 10^3/uL (4.0-10.0)
[2023-04-28 16:54] LABS: ALBUMIN 3.9 G/DL (3.2-5.2); ALKALINE PHOSPHATASE 49 U/L (46-116); ALT/SGPT 13 U/L (7.0-40); AST/SGOT < 8 U/L (<34); BILIRUBIN,TOTAL 0.8 MG/DL (0.3-1.2); BLOOD UREA NITROGEN 20 MG/DL (9-23); CALCIUM LEVEL 9.1 MG/DL (8.3-10.6); CARBON DIOXIDE LEVEL 28 MMOL/L (20-31); CHLORIDE LEVEL 102 MMOL/L (98-107); CREATININE FOR GFR 1.08 MG/DL (0.70-1.30); GLOMERULAR FILTRATION RATE > 60.0 (>35); GLUCOSE, FASTING 381 MG/DL (74-106); POTASSIUM SERUM 4.6 MMOL/L (3.5-5.1); SODIUM LEVEL 137 MMOL/L (136-145); TOTAL PROTEIN 6.8 G/DL (5.7-8.2)
== END ==
LOC: M WUC 12:47
PROVIDERS: ATTEND Internal Medicine Cardiovascular Disease
DX: I50.32 Chronic diastolic (congestive) heart failure (principal); I34.0 Nonrheumatic mitral (valve) insufficiency; I25.10 Atherosclerotic heart disease of native coronary artery without angina pectoris; I11.0 Hypertensive heart disease with heart failure

== ENCOUNTER → 2023-05-26 | Outpatient (REF) | payer MEDICARE, OTHER ==
[2023-05-26 16:34] LABS: APPEARANCE, URINE CLEAR (CLEAR); BACTERIA, URINE AUTO NEGATIVE (NEGATIVE); BILIRUBIN, URINE AUTO NEGATIVE (NEGATIVE); BLOOD, URINE BLOOD 2+ (NEGATIVE); COLOR, URINE YELLOW (YELLOW); GLUCOSE, URINE (UA) AUTO 3+ mg/dL (NEGATIVE); KETONE, URINE AUTO NEGATIVE (NEGATIVE); LEUKOCYTE ESTERASE, URINE AUTO NEGATIVE (NEGATIVE); MUCUS, URINE SMALL (NEGATIVE); NITRITE, URINE AUTO NEGATIVE (NEGATIVE); PROTEIN, URINE AUTO NEGATIVE (NEGATIVE); RBC, URINE AUTO 0 /HPF (0-3); SPECIFIC GRAVITY URINE AUTO 1.029 (1.002-1.035); SQUAMOUS EPITHELIAL CELL UR AU 0 /HPF (0-6); UROBILINOGEN, URINE AUTO 0.2 mg/dL (0.0-2.0); WBC, URINE AUTO 0 /HPF (0-3)
== END ==
LOC: M LABWUC 16:14
PROVIDERS: ATTEND Physician Assistant
DX: R31.0 Gross hematuria (principal)

== ENCOUNTER → 2023-07-15 | Outpatient (REF) | payer MEDICARE, OTHER ==
[~2023-07-15] MED LIST changes: -ASPI-161 PO; +ASPI-615 PO; -OXYB5TAB11 PO; +OXYB5TAB14 PO
[2023-07-15 16:44] LABS: HEMATOCRIT 41.5 % (42.0-52.0); HEMOGLOBIN 12.3 g/dl (13.5-17.5); MEAN CORPUSCULAR HEMOGLOBIN 24.7 pg (27.0-33.0); MEAN CORPUSCULAR HGB CONC 29.6 g/dl (32.0-36.5); MEAN CORPUSCULAR VOLUME 83.5 fl (80.0-96.0); PLATELET COUNT, AUTOMATED 140 10^3/uL (150-450); RED BLOOD COUNT 4.97 10^6/uL (4.30-6.10); WHITE BLOOD COUNT 8.5 10^3/uL (4.0-10.0)
[2023-07-15 16:49] LABS: BLOOD UREA NITROGEN 19 MG/DL (9-23); CALCIUM LEVEL 9.3 MG/DL (8.3-10.6); CARBON DIOXIDE LEVEL 30 MMOL/L (20-31); CHLORIDE LEVEL 103 MMOL/L (98-107); CREATININE FOR GFR 1.02 MG/DL (0.70-1.30); GLOMERULAR FILTRATION RATE > 60.0 (>35); GLUCOSE, FASTING 225 MG/DL (74-106); IRON (FE) 76 UG/DL (65-175); POTASSIUM SERUM 4.6 MMOL/L (3.5-5.1); SODIUM LEVEL 137 MMOL/L (136-145); TOTAL IRON BINDING CAPACITY 292 UG/DL (250-425)
[2023-07-15 16:50] LABS: THYROID STIMULATING HORMONE 1.405 uIU/ML (0.55-4.78)
[2023-07-15 16:52] LABS: FREE T4 1.01 NG/DL (0.89-1.76)
[2023-07-15 17:37] LABS: HEMOGLOBIN A1c 9.4 % (4.0-6.0)
== END ==
LOC: M SFHCADAM 13:58
PROVIDERS: ATTEND Family Medicine
DX: E11.8 Type 2 diabetes mellitus with unspecified complications (principal); F02.B18 Dementia in other diseases classified elsewhere, moderate, with other behavioral disturbance; D64.9 Anemia, unspecified; K62.7 Radiation proctitis

== ENCOUNTER → 2023-07-16 | Outpatient (REF) | payer MEDICARE, OTHER ==
[2023-07-16 17:17] LABS: APPEARANCE, URINE HAZY (CLEAR); BACTERIA, URINE AUTO NEGATIVE (NEGATIVE); BILIRUBIN, URINE AUTO NEGATIVE (NEGATIVE); BLOOD, URINE BLOOD 3+ (NEGATIVE); COLOR, URINE YELLOW (YELLOW); GLUCOSE, URINE (UA) AUTO 3+ mg/dL (NEGATIVE); KETONE, URINE AUTO NEGATIVE (NEGATIVE); LEUKOCYTE ESTERASE, URINE AUTO NEGATIVE (NEGATIVE); MUCUS, URINE SMALL (NEGATIVE); NITRITE, URINE AUTO NEGATIVE (NEGATIVE); PROTEIN, URINE AUTO 1+ mg/dL (NEGATIVE); RBC, URINE AUTO 54 /HPF (0-3); SPECIFIC GRAVITY URINE AUTO 1.027 (1.002-1.035); SQUAMOUS EPITHELIAL CELL UR AU 0 /HPF (0-6); UROBILINOGEN, URINE AUTO 0.2 mg/dL (0.0-2.0); WBC, URINE AUTO 3 /HPF (0-3)
== END ==
LOC: M SMT 16:03
PROVIDERS: ATTEND Physician Assistant
DX: R31.0 Gross hematuria (principal)

== ENCOUNTER → 2023-08-24 | Outpatient (CLI) | payer MEDICARE, BC ==
[~2023-08-24] MED LIST changes: +BARIUM SULFATE 700 MG TABLET (E-Z-DISK) As Ordered ONE; +E-Z-PAQUE 96% w/w SUSP 176GM BTL As Ordered ONE; +VARIBAR NECTAR 40% w/v 240ML SUSP BTL As Ordered ONE
== END ==
LOC: M RAD 12:38
PROVIDERS: ATTEND Family Medicine
DX: R13.12 Dysphagia, oropharyngeal phase (principal)

== ENCOUNTER → 2023-09-02 | Outpatient (REF) | payer MEDICARE, BC ==
[~2023-09-02] MED LIST changes: -BARIUM SULFATE 700 MG TABLET (E-Z-DISK) As Ordered ONE; -E-Z-PAQUE 96% w/w SUSP 176GM BTL As Ordered ONE; -GLIM1TAB4 PO; +GLIM1TAB84 PO; +RAMI10CA64 PO; -RAMI1CAP26 PO; -VARIBAR NECTAR 40% w/v 240ML SUSP BTL As Ordered ONE
== END ==
LOC: M SFHCADAM 14:30
PROVIDERS: ATTEND Family Medicine
DX: D51.9 Vitamin B12 deficiency anemia, unspecified (principal); E11.8 Type 2 diabetes mellitus with unspecified complications

== ENCOUNTER → 2023-10-01 | Outpatient (REF) | payer MEDICARE, BC ==
[2023-10-01 18:25] LABS: HEMOGLOBIN A1c 7.7 % (4.0-6.0)
[2023-10-01 18:28] LABS: ALBUMIN 3.9 G/DL (3.2-5.2); ALKALINE PHOSPHATASE 46 U/L (46-116); ALT/SGPT 17 U/L (7.0-40); AST/SGOT < 8 U/L (<34); BILIRUBIN,TOTAL 1.2 MG/DL (0.3-1.2); BLOOD UREA NITROGEN 17 MG/DL (9-23); CALCIUM LEVEL 9.1 MG/DL (8.3-10.6); CARBON DIOXIDE LEVEL 30 MMOL/L (20-31); CHLORIDE LEVEL 103 MMOL/L (98-107); CREATININE FOR GFR 0.89 MG/DL (0.70-1.30); GLOMERULAR FILTRATION RATE > 60.0 (>35); GLUCOSE, FASTING 234 MG/DL (74-106); POTASSIUM SERUM 4.5 MMOL/L (3.5-5.1); SODIUM LEVEL 138 MMOL/L (136-145); TOTAL PROTEIN 6.8 G/DL (5.7-8.2)
[2023-10-01 18:29] LABS: FOLATE > 24.00 NG/ML (>5.4)
[2023-10-01 18:30] LABS: VITAMIN B12 LEVEL 608 PG/ML (211-911)
== END ==
LOC: M SFHCADAM 16:26 → M LABWUC 16:26
PROVIDERS: ATTEND Family Medicine
DX: E11.8 Type 2 diabetes mellitus with unspecified complications (principal); D51.9 Vitamin B12 deficiency anemia, unspecified

== ENCOUNTER → 2023-10-27 | Outpatient (REF) | payer MEDICARE, BC ==
[2023-10-27 18:38] LABS: APPEARANCE, URINE HAZY (CLEAR); BACTERIA, URINE AUTO NEGATIVE (NEGATIVE); BILIRUBIN, URINE AUTO NEGATIVE (NEGATIVE); BLOOD, URINE BLOOD 3+ (NEGATIVE); COLOR, URINE YELLOW (YELLOW); GLUCOSE, URINE (UA) AUTO 3+ mg/dL (NEGATIVE); KETONE, URINE AUTO NEGATIVE (NEGATIVE); LEUKOCYTE ESTERASE, URINE AUTO NEGATIVE (NEGATIVE); MUCUS, URINE SMALL (NEGATIVE); NITRITE, URINE AUTO NEGATIVE (NEGATIVE); PROTEIN, URINE AUTO NEGATIVE (NEGATIVE); RBC, URINE AUTO TNTC /HPF (0-3); SPECIFIC GRAVITY URINE AUTO 1.027 (1.002-1.035); SQUAMOUS EPITHELIAL CELL UR AU 0 /HPF (0-6); UROBILINOGEN, URINE AUTO 0.2 mg/dL (0.0-2.0); WBC, URINE AUTO 1 /HPF (0-3)
== END ==
LOC: M SMT 17:14
PROVIDERS: ATTEND Physician Assistant
DX: R31.0 Gross hematuria (principal)

== ENCOUNTER → 2023-11-18 | Outpatient (CLI) | payer MEDICARE, BC | LOC: M RAD 13:15 | PROVIDERS: ATTEND Physician Assistant | DX: R31.0 Gross hematuria (principal); N26.1 Atrophy of kidney (terminal); N28.1 Cyst of kidney, acquired ==

== ENCOUNTER → 2023-12-29 | Outpatient (CLI) | payer MEDICARE, BC ==
[2023-12-29 17:08] LABS: HEMATOCRIT 41.6 % (42.0-52.0); HEMOGLOBIN 12.2 g/dl (13.5-17.5); MEAN CORPUSCULAR HEMOGLOBIN 24.4 pg (27.0-33.0); MEAN CORPUSCULAR HGB CONC 29.3 g/dl (32.0-36.5); PLATELET COUNT, AUTOMATED 125 10^3/uL (150-450); RED BLOOD COUNT 5.01 10^6/uL (4.30-6.10); WHITE BLOOD COUNT 8.6 10^3/uL (4.0-10.0)
[2023-12-29 17:35] LABS: ALBUMIN 3.8 G/DL (3.2-5.2); ALKALINE PHOSPHATASE 53 U/L (46-116); ALT/SGPT 11 U/L (7.0-40); AST/SGOT < 8 U/L (<34); BILIRUBIN,TOTAL 0.8 MG/DL (0.3-1.2); BLOOD UREA NITROGEN 25 MG/DL (9-23); CALCIUM LEVEL 9.3 MG/DL (8.3-10.6); CARBON DIOXIDE LEVEL 30 MMOL/L (20-31); CHLORIDE LEVEL 105 MMOL/L (98-107); GLOMERULAR FILTRATION RATE > 60.0 (>35); GLUCOSE, FASTING 276 MG/DL (74-106); POTASSIUM SERUM 4.9 MMOL/L (3.5-5.1); SODIUM LEVEL 139 MMOL/L (136-145); TOTAL PROTEIN 6.8 G/DL (5.7-8.2)
[2023-12-29 18:51] LABS: BASOPHILS 3 % (0-1); EOSINOPHILS 2 % (0-3); LYMPHOCYTES 25 % (16-44); MONOCYTES 13 % (0-5); NEUTROPHILS 57 % (28-66); PLATELET ESTIMATE NORMAL (NORMAL)
[2023-12-29 18:52] LABS: BURR CELLS 2+
[2023-12-29 18:54] LABS: ANISOCYTOSIS 2+; SPHEROCYTES 2+
== END ==
LOC: M WUC 12:40
PROVIDERS: ATTEND Internal Medicine Cardiovascular Disease
DX: I50.32 Chronic diastolic (congestive) heart failure (principal); I25.10 Atherosclerotic heart disease of native coronary artery without angina pectoris; I34.0 Nonrheumatic mitral (valve) insufficiency; I11.0 Hypertensive heart disease with heart failure

== ENCOUNTER → 2024-02-02 | Outpatient (CLI) | payer MEDICARE, BC ==
[~2024-02-02] MED LIST changes: +CVS10CAP7 PO; +DONE10TA90 PO; +ECOT81TA5 PO; +GABA-1172 PO; -GABA-282 PO; +METF-877 PO
[2024-02-02 17:32] LABS: HEMATOCRIT 41.2 % (42.0-52.0); HEMOGLOBIN 11.9 g/dl (13.5-17.5); MEAN CORPUSCULAR HEMOGLOBIN 24.5 pg (27.0-33.0); MEAN CORPUSCULAR HGB CONC 28.9 g/dl (32.0-36.5); MEAN CORPUSCULAR VOLUME 84.8 fl (80.0-96.0); PLATELET COUNT, AUTOMATED 131 10^3/uL (150-450); RED BLOOD COUNT 4.86 10^6/uL (4.30-6.10); WHITE BLOOD COUNT 9.3 10^3/uL (4.0-10.0)
[2024-02-02 18:03] LABS: ALBUMIN 3.7 G/DL (3.2-5.2); ALKALINE PHOSPHATASE 53 U/L (46-116); ALT/SGPT 11 U/L (7.0-40); AST/SGOT < 8 U/L (<34); BILIRUBIN,TOTAL 0.9 MG/DL (0.3-1.2); BLOOD UREA NITROGEN 16 MG/DL (9-23); CARBON DIOXIDE LEVEL 29 MMOL/L (20-31); CHLORIDE LEVEL 104 MMOL/L (98-107); CHOLESTEROL LEVEL 90 MG/DL (<200); CHOLESTEROL RISK RATIO 2.34 (<5); CREATININE FOR GFR 0.95 MG/DL (0.70-1.30); GLOMERULAR FILTRATION RATE > 60.0 (>35); GLUCOSE, FASTING 307 MG/DL (74-106); HDL CHOLESTEROL 38.3 MG/DL (>40); LDL CHOLESTEROL 32.1 MG/DL (<100); NON-HDL-C 51.7 MG/DL; POTASSIUM SERUM 4.4 MMOL/L (3.5-5.1); SODIUM LEVEL 137 MMOL/L (136-145); TOTAL PROTEIN 6.7 G/DL (5.7-8.2); TRIGLYCERIDES LEVEL 98 MG/DL (<150)
== END ==
LOC: M WUC 10:34
PROVIDERS: ATTEND Family Medicine
DX: I25.10 Atherosclerotic heart disease of native coronary artery without angina pectoris (principal); E11.8 Type 2 diabetes mellitus with unspecified complications; F02.B18 Dementia in other diseases classified elsewhere, moderate, with other behavioral disturbance; R13.12 Dysphagia, oropharyngeal phase

== ENCOUNTER 2024-02-04 12:35 | Inpatient (IN) | payer MEDICARE, BC ==
[~2024-02-04] VITALS: Ht 177.8 cm; Wt 69.7 kg
[~2024-02-04 12:35] MED LIST changes: -CVS10CAP7 PO; -DONE10TA90 PO; -ECOT81TA5 PO; -METF-877 PO
[2024-02-04] MEDS ORDERED: CVS10CAP7 PO (12:46)
[2024-02-04] MEDS ORDERED: METF-877 PO (12:46)
[2024-02-04] MEDS ORDERED: DONE10TA90 PO (12:46)
[2024-02-04] MEDS ORDERED: ECOT81TA5 PO (12:46)
[2024-02-04] MEDS: ONDANSETRON 4MG 2ML VIAL IV ONE (13:29)
[2024-02-04 14:05] LABS: BASO # 0.2 10^3/uL (0.0-0.2); BASO % 0.5 % (0.0-1.0); EOS % 0.1 % (0.0-3.0); HEMATOCRIT 41.6 % (42.0-52.0); HEMOGLOBIN 12.4 g/dl (13.5-17.5); LYMPH # 0.6 10^3/uL (1.5-5.0); MEAN CORPUSCULAR HEMOGLOBIN 24.1 pg (27.0-33.0); MEAN CORPUSCULAR HGB CONC 29.8 g/dl (32.0-36.5); MEAN CORPUSCULAR VOLUME 80.9 fl (80.0-96.0); NEUTROPHILS # 25.4 10^3/uL (1.5-8.5); NEUTROPHILS % 86.9 % (36.0-66.0); PLATELET COUNT, AUTOMATED 149 10^3/uL (150-450); RED BLOOD COUNT 5.14 10^6/uL (4.30-6.10); WHITE BLOOD COUNT 29.2 10^3/uL (4.0-10.0)
[2024-02-04] MEDS: NS 500 ML IV ONE (14:31)
[2024-02-04 14:36] LABS: MONO # 2.6 10^3/uL (0.0-0.8)
[2024-02-04 14:38] LABS: CK-MB VALUE MASS 1.6 NG/ML (<3.6)
[2024-02-04 14:44] LABS: LIPASE 19 U/L (12-53)
[2024-02-04 14:52] LABS: ALBUMIN 3.7 G/DL (3.2-5.2); ALKALINE PHOSPHATASE 57 U/L (46-116); ALT/SGPT 13 U/L (7.0-40); AST/SGOT < 8 U/L (<34); BILIRUBIN,DIRECT 0.5 MG/DL (<0.4); BILIRUBIN,TOTAL 1.6 MG/DL (0.3-1.2); BLOOD UREA NITROGEN 26 MG/DL (9-23); CALCIUM LEVEL 9.6 MG/DL (8.3-10.6); CARBON DIOXIDE LEVEL 24 MMOL/L (20-31); CHLORIDE LEVEL 104 MMOL/L (98-107); CPK CREATINE PHOSPHOKINASE 26 U/L (46-171); CREATININE FOR GFR 1.14 MG/DL (0.70-1.30); GLOMERULAR FILTRATION RATE > 60.0 (>35); GLUCOSE, FASTING 292 MG/DL (74-106); MB/CK RELATIVE INDEX 6.15 (< OR =4); SODIUM LEVEL 142 MMOL/L (136-145); TOTAL PROTEIN 7.1 G/DL (5.7-8.2)
[2024-02-04 15:39] LABS: CK-MB VALUE MASS 1.7 NG/ML (<3.6)
[2024-02-04 15:41] LABS: CPK CREATINE PHOSPHOKINASE < 15 U/L (46-171)
[2024-02-04] MEDS ORDERED: METF500T13 PO (16:07)
[2024-02-04] MEDS ORDERED: TRAD5TAB PO (16:07)
[2024-02-04] MEDS ORDERED: HOME MED LIST COMPLETE! XX SCH (16:10)
[2024-02-04] MEDS: GASTROGRAFIN SOLUTION 30ML PO SCH (16:57)
[2024-02-04] MEDS ORDERED: ACETAMINOPHEN 325 MG TAB PO PRN (21:00)
[2024-02-04] MEDS ORDERED: GLUCAGON INJ 1MG VIAL SC PRN (21:00)
[2024-02-04] MEDS: DOCUSATE SODIUM 100MG CAPSULE PO SCH (21:00)
[2024-02-04] MEDS ORDERED: MOM 30ML SUSPENSION UDC PO PRN (21:00)
[2024-02-04] MEDS ORDERED: DEXTROSE 50% 50ML SYRINGE IV PRN (21:00)
[2024-02-04] MEDS ORDERED: GLUCOSE 4 GM CHEW PO PRN (21:00)
[2024-02-04 22:01] LABS: PROCALCITONIN 0.43 ng/ml
[2024-02-04 22:03] LABS: ERYTHROCYTE SEDIMENTATION RATE 12 mm/hr (0-20)
[2024-02-04] MEDS: PANTOPRAZOLE 40MG VIAL IV SCH (22:37)
[2024-02-04 22:50] VITALS: BP 131/64; TEMP 97.7; O2SAT 96
[2024-02-05] MEDS: INSULIN LISPRO (NovoLOG) PER UNIT SC SCH (00:06)
[2024-02-05 04:00] VITALS: BP 129/63; TEMP 97.5; O2SAT 96
[2024-02-05] MEDS: HEPARIN SOD (PORCINE) 5000UNITS/ML 1ML VIAL/SYRINGE SC SCH (06:07)
[2024-02-05 07:05] LABS: MEAN CORPUSCULAR HEMOGLOBIN 24.5 pg (27.0-33.0); MEAN CORPUSCULAR VOLUME 81.8 fl (80.0-96.0); PLATELET COUNT, AUTOMATED 129 10^3/uL (150-450); RED BLOOD COUNT 4.89 10^6/uL (4.30-6.10); WHITE BLOOD COUNT 6.2 10^3/uL (4.0-10.0)
[2024-02-05 07:27] LABS: ALBUMIN 3.5 G/DL (3.2-5.2); ALKALINE PHOSPHATASE 50 U/L (46-116); ALT/SGPT 11 U/L (7.0-40); AST/SGOT 8 U/L (<34); BILIRUBIN,TOTAL 1.6 MG/DL (0.3-1.2); BLOOD UREA NITROGEN 38 MG/DL (9-23); CALCIUM LEVEL 9.6 MG/DL (8.3-10.6); CARBON DIOXIDE LEVEL 29 MMOL/L (20-31); CHLORIDE LEVEL 106 MMOL/L (98-107); CREATININE FOR GFR 1.16 MG/DL (0.70-1.30); GLOMERULAR FILTRATION RATE > 60.0 (>35); GLUCOSE, FASTING 171 MG/DL (74-106); POTASSIUM SERUM 4.3 MMOL/L (3.5-5.1); SODIUM LEVEL 143 MMOL/L (136-145); TOTAL PROTEIN 6.8 G/DL (5.7-8.2)
[2024-02-05] MEDS: ONDANSETRON 4MG 2ML VIAL IV PRN (11:37)
[2024-02-05 12:00] VITALS: BP 126/62; TEMP 97.3; O2SAT 94
[2024-02-05 20:38] VITALS: BP 114/53; TEMP 97.3; O2SAT 92
[2024-02-06] MEDS: NS 1,000 ML IV SCH (03:23)
[2024-02-06 04:30] VITALS: TEMP 97.4
[2024-02-06 04:48] VITALS: BP 111/56; O2SAT 95
[2024-02-06 06:59] LABS: HEMATOCRIT 37.1 % (42.0-52.0); MEAN CORPUSCULAR HEMOGLOBIN 24.2 pg (27.0-33.0); MEAN CORPUSCULAR HGB CONC 29.6 g/dl (32.0-36.5); MEAN CORPUSCULAR VOLUME 81.7 fl (80.0-96.0); PLATELET COUNT, AUTOMATED 116 10^3/uL (150-450); RED BLOOD COUNT 4.54 10^6/uL (4.30-6.10); WHITE BLOOD COUNT 9.7 10^3/uL (4.0-10.0)
[2024-02-06 07:24] LABS: BLOOD UREA NITROGEN 43 MG/DL (9-23); CALCIUM LEVEL 8.8 MG/DL (8.3-10.6); CARBON DIOXIDE LEVEL 28 MMOL/L (20-31); CHLORIDE LEVEL 111 MMOL/L (98-107); CREATININE FOR GFR 1.15 MG/DL (0.70-1.30); GLOMERULAR FILTRATION RATE > 60.0 (>35); GLUCOSE, FASTING 132 MG/DL (74-106); POTASSIUM SERUM 3.7 MMOL/L (3.5-5.1); SODIUM LEVEL 146 MMOL/L (136-145)
[2024-02-06 12:00] VITALS: BP 115/57; TEMP 97.3; O2SAT 95
[2024-02-06 16:30] VITALS: BP 122/60; TEMP 97.5; O2SAT 96
[2024-02-06 19:42] VITALS: BP 122/61; TEMP 97.5; O2SAT 95
[2024-02-07 04:12] VITALS: BP 114/56; TEMP 97.7; O2SAT 94
[2024-02-07 07:11] LABS: HEMATOCRIT 36.2 % (42.0-52.0); HEMOGLOBIN 10.8 g/dl (13.5-17.5); MEAN CORPUSCULAR HEMOGLOBIN 24.2 pg (27.0-33.0); MEAN CORPUSCULAR HGB CONC 29.8 g/dl (32.0-36.5); MEAN CORPUSCULAR VOLUME 81.2 fl (80.0-96.0); PLATELET COUNT, AUTOMATED 110 10^3/uL (150-450); RED BLOOD COUNT 4.46 10^6/uL (4.30-6.10); WHITE BLOOD COUNT 7.9 10^3/uL (4.0-10.0)
[2024-02-07 07:57] LABS: BLOOD UREA NITROGEN 35 MG/DL (9-23); CALCIUM LEVEL 8.5 MG/DL (8.3-10.6); CARBON DIOXIDE LEVEL 29 MMOL/L (20-31); CHLORIDE LEVEL 108 MMOL/L (98-107); CREATININE FOR GFR 1.11 MG/DL (0.70-1.30); GLOMERULAR FILTRATION RATE > 60.0 (>35); GLUCOSE, FASTING 153 MG/DL (74-106); POTASSIUM SERUM 3.1 MMOL/L (3.5-5.1); SODIUM LEVEL 144 MMOL/L (136-145)
[2024-02-07] MEDS: INSULIN LISPRO (NovoLOG) PER UNIT SC SCH (08:24)
[2024-02-07 09:55] LABS: CLOSTRIDIUM DIFFICILE PCR NEGATIVE (NEGATIVE)
[2024-02-07] MEDS: POTASSIUM CHLORIDE 10MEQ SR TABLET PO ONE (10:47)
[2024-02-07] MEDS ORDERED: INSULIN LISPRO (NovoLOG) PER UNIT SC SCH (21:00)
== END 2024-02-07 11:35 | disposition home or self-care (01) | DRG 390 ==
LOC: M ED 12:35 → M ED INP 20:56 → M MS5PR 22:58
PROVIDERS: ADMIT Student in an Organized Health Care Education/Training Program; ATTEND Family Medicine
DX: K56.600 Partial intestinal obstruction, unspecified as to cause (principal); N52.1 Erectile dysfunction due to diseases classified elsewhere; F32.A Depression, unspecified; F41.9 Anxiety disorder, unspecified; I25.10 Atherosclerotic heart disease of native coronary artery without angina pectoris; E80.6 Other disorders of bilirubin metabolism; I10 Essential (primary) hypertension; E78.5 Hyperlipidemia, unspecified; E11.42 Type 2 diabetes mellitus with diabetic polyneuropathy; D50.9 Iron deficiency anemia, unspecified; F03.90 Unspecified dementia, unspecified severity, without behavioral disturbance, psychotic disturbance, mood disturbance, and anxiety; M19.90 Unspecified osteoarthritis, unspecified site; N40.0 Benign prostatic hyperplasia without lower urinary tract symptoms; N39.41 Urge incontinence; Z95.828 Presence of other vascular implants and grafts; Z98.41 Cataract extraction status, right eye; Z98.42 Cataract extraction status, left eye; Z95.5 Presence of coronary angioplasty implant and graft; Z85.46 Personal history of malignant neoplasm of prostate; Z92.3 Personal history of irradiation; Z79.82 Long term (current) use of aspirin; Z79.84 Long term (current) use of oral hypoglycemic drugs; Z79.899 Other long term (current) drug therapy; Z91.048 Other nonmedicinal substance allergy status; Z91.041 Radiographic dye allergy status; Z87.891 Personal history of nicotine dependence

== ENCOUNTER → 2024-02-10 | Outpatient (REF) | payer MEDICARE, BC ==
[~2024-02-10] MED LIST changes: +CVS10CAP7 PO; +DONE10TA90 PO; +ECOT81TA5 PO; +METF-877 PO
== END ==
LOC: M SFHCADAM 12:21
PROVIDERS: ATTEND Family Medicine
DX: R19.7 Diarrhea, unspecified (principal)

== ENCOUNTER 2024-03-10 11:32 | Emergency (ER) | payer BC, MEDICARE ==
[~2024-03-10] VITALS: Ht 177.8 cm; Wt 78.2 kg
[2024-03-10 11:39] VITALS: BP 127/60; TEMP 98.8; O2SAT 98
[2024-03-10] MEDS: ACETAMINOPHEN 500 MG TAB PO ONE (13:09)
[2024-03-10] MEDS ORDERED: ASPE4PAD TOP (13:37)
== END 2024-03-10 14:06 | disposition home or self-care (01) ==
LOC: M ED 11:32
DX: M70.61 Trochanteric bursitis, right hip (principal); W19.XXXA Unspecified fall, initial encounter; Y92.000 Kitchen of unspecified non-institutional (private) residence as the place of occurrence of the external cause; Y93.9 Activity, unspecified; Y99.9 Unspecified external cause status; G30.9 Alzheimer's disease, unspecified; Z79.82 Long term (current) use of aspirin; Z79.899 Other long term (current) drug therapy; Z91.041 Radiographic dye allergy status; Z88.3 Allergy status to other anti-infective agents

== ENCOUNTER → 2024-04-17 | Outpatient (CLI) | payer MEDICARE ==
[~2024-04-17] MED LIST changes: +ASPE4PAD TOP
[2024-04-17 17:14] LABS: HEMATOCRIT 40.4 % (42.0-52.0); HEMOGLOBIN 11.9 g/dl (13.5-17.5); MEAN CORPUSCULAR HEMOGLOBIN 24.4 pg (27.0-33.0); MEAN CORPUSCULAR HGB CONC 29.5 g/dl (32.0-36.5); MEAN CORPUSCULAR VOLUME 82.8 fl (80.0-96.0); PLATELET COUNT, AUTOMATED 117 10^3/uL (150-450); RED BLOOD COUNT 4.88 10^6/uL (4.30-6.10); WHITE BLOOD COUNT 12.1 10^3/uL (4.0-10.0)
[2024-04-17 17:42] LABS: ALBUMIN 3.6 G/DL (3.2-5.2); ALKALINE PHOSPHATASE 61 U/L (40-129); ALT/SGPT 11 U/L (7.0-40); AST/SGOT < 8 U/L (<34); BILIRUBIN,TOTAL 0.8 MG/DL (0.3-1.2); BLOOD UREA NITROGEN 15 MG/DL (9-23); CALCIUM LEVEL 9.3 MG/DL (8.3-10.6); CARBON DIOXIDE LEVEL 30 MMOL/L (20-31); CHLORIDE LEVEL 103 MMOL/L (98-107); CREATININE FOR GFR 0.92 MG/DL (0.70-1.30); GLOMERULAR FILTRATION RATE > 60.0 (>35); GLUCOSE, FASTING 230 MG/DL (74-106); POTASSIUM SERUM 4.2 MMOL/L (3.5-5.1); SODIUM LEVEL 139 MMOL/L (136-145); TOTAL PROTEIN 7.3 G/DL (5.7-8.2)
[2024-04-17 19:44] LABS: HEMOGLOBIN A1c 9.2 % (4.0-6.0)
== END ==
LOC: M WUC 13:23
PROVIDERS: ATTEND Family Medicine
DX: E11.8 Type 2 diabetes mellitus with unspecified complications (principal)

== ENCOUNTER 2024-05-14 12:20 | Emergency (ER) | payer MEDICARE, BC ==
[~2024-05-14] VITALS: Ht 177.8 cm; Wt 68.2 kg
[2024-05-14 12:28] VITALS: BP 134/61; TEMP 97.7; O2SAT 100
[2024-05-14 13:35] LABS: BASO # 0.1 10^3/uL (0.0-0.2); BASO % 0.5 % (0.0-1.0); EOS # 0.4 10^3/uL (0.0-0.5); EOS % 3.7 % (0.0-3.0); HEMATOCRIT 38.8 % (42.0-52.0); HEMOGLOBIN 11.6 g/dl (13.5-17.5); LYMPH # 0.8 10^3/uL (1.5-5.0); MEAN CORPUSCULAR HEMOGLOBIN 24.1 pg (27.0-33.0); MEAN CORPUSCULAR HGB CONC 29.9 g/dl (32.0-36.5); MEAN CORPUSCULAR VOLUME 80.7 fl (80.0-96.0); MONO # 1.1 10^3/uL (0.0-0.8); MONO % 11.7 % (2.0-8.0); NEUTROPHILS # 7.1 10^3/uL (1.5-8.5); NEUTROPHILS % 74.9 % (36.0-66.0); PLATELET COUNT, AUTOMATED 127 10^3/uL (150-450); RED BLOOD COUNT 4.81 10^6/uL (4.30-6.10); WHITE BLOOD COUNT 9.5 10^3/uL (4.0-10.0)
[2024-05-14 13:45] LABS: INR 1.1; PARTIAL THROMBOPLASTIN TIME 33.3 SECONDS (24.8-34.2); PROTHROMBIN TIME 14.5 SECONDS (12.5-14.5)
[2024-05-14 14:00] LABS: BLOOD UREA NITROGEN 19 MG/DL (9-23); CALCIUM LEVEL 9.3 MG/DL (8.3-10.6); CARBON DIOXIDE LEVEL 30 MMOL/L (20-31); CHLORIDE LEVEL 103 MMOL/L (98-107); CREATININE FOR GFR 0.98 MG/DL (0.70-1.30); GLOMERULAR FILTRATION RATE > 60.0 (>35); GLUCOSE, FASTING 234 MG/DL (74-106); POTASSIUM SERUM 4.2 MMOL/L (3.5-5.1); SODIUM LEVEL 139 MMOL/L (136-145)
[2024-05-14] MEDS ORDERED: LIDOCAINE 2% 5ML JELLY UROJET TOP ONE (14:20)
[2024-05-14] MEDS: LIDOCAINE 2% 5ML JELLY UROJET TOP ONE (14:20)
[2024-05-14] MEDS ORDERED: HOME MED LIST COMPLETE! XX SCH (15:50)
[2024-05-14] MEDS ORDERED: LEXA1TAB PO (15:50)
[2024-05-14] MEDS ORDERED: MEMA1TAB3 PO (15:50)
[2024-05-14] MEDS: DOXYCYCLINE HYCLATE 100MG TABLET PO ONE ×2 (19:00)
[2024-05-14] MEDS ORDERED: DOXY100C3 PO (19:10)
[2024-05-14 19:15] LABS: KETONE, URINE MANUAL REFLEX NEGATIVE (NEGATIVE); NITRITE, URINE MANUAL RFX NEGATIVE (NEGATIVE); PROTEIN, URINE MANUAL REFLEX 3+ mg/dL (NEGATIVE); SP GRAVITY,URINE MANUAL REFLEX 1.015 (1.002-1.035); UROBILINOGEN, UA MANUAL REFLEX NORMAL (NORMAL)
[2024-05-14 19:19] LABS: HYALINE CAST, URINE RFX NONE SEEN /lpf (0-1); MICROSCOPIC EXAM RFX PERFORMED; MUCUS, URINE REFLEX SMALL AMOUNT (NEGATIVE); RBC, URINE MAN REFLEX TNTC /hpf (0-3); SQUAMOUS EPITHELIAL URINE RFX NONE SEEN /hpf (SMALL AMT)
== END 2024-05-14 19:23 | disposition home or self-care (01) ==
LOC: M ED 12:20
DX: N39.0 Urinary tract infection, site not specified (principal); R31.0 Gross hematuria; I10 Essential (primary) hypertension; E11.9 Type 2 diabetes mellitus without complications; N40.0 Benign prostatic hyperplasia without lower urinary tract symptoms; F32.A Depression, unspecified; D50.9 Iron deficiency anemia, unspecified; F03.90 Unspecified dementia, unspecified severity, without behavioral disturbance, psychotic disturbance, mood disturbance, and anxiety; Z91.041 Radiographic dye allergy status; Z91.09 Other allergy status, other than to drugs and biological substances; Z79.82 Long term (current) use of aspirin; Z79.02 Long term (current) use of antithrombotics/antiplatelets; Z79.2 Long term (current) use of antibiotics; Z79.899 Other long term (current) drug therapy

== ENCOUNTER 2024-05-15 18:48 | Emergency (ER) | payer MEDICARE, BC ==
[~2024-05-15] VITALS: Ht 180.3 cm; Wt 68.2 kg
[~2024-05-15 18:48] MED LIST changes: +DOXY100C3 PO; +LEXA1TAB PO; +MEMA1TAB3 PO
[2024-05-15 18:51] VITALS: TEMP 98.8
[2024-05-15 20:57] VITALS: BP 138/63; O2SAT 96
== END 2024-05-15 20:58 | disposition home or self-care (01) ==
LOC: M ED 18:48
DX: R31.9 Hematuria, unspecified (principal); I10 Essential (primary) hypertension; G30.9 Alzheimer's disease, unspecified; E11.9 Type 2 diabetes mellitus without complications; F41.9 Anxiety disorder, unspecified; Z91.041 Radiographic dye allergy status; Z87.442 Personal history of urinary calculi; Z79.82 Long term (current) use of aspirin; Z79.02 Long term (current) use of antithrombotics/antiplatelets; Z79.899 Other long term (current) drug therapy

== ENCOUNTER 2024-05-28 11:23 | Inpatient (IN) | payer MEDICARE, BC ==
[~2024-05-28] VITALS: Ht 177.8 cm; Wt 68.4 kg
[2024-05-28 12:18] LABS: HEMATOCRIT 35.4 % (42.0-52.0); HEMOGLOBIN 10.1 g/dl (13.5-17.5); MEAN CORPUSCULAR HEMOGLOBIN 23.7 pg (27.0-33.0); MEAN CORPUSCULAR HGB CONC 28.5 g/dl (32.0-36.5); MEAN CORPUSCULAR VOLUME 82.9 fl (80.0-96.0); PLATELET COUNT, AUTOMATED 184 10^3/uL (150-450); RED BLOOD COUNT 4.27 10^6/uL (4.30-6.10); WHITE BLOOD COUNT 12.7 10^3/uL (4.0-10.0)
[2024-05-28] MEDS: LIDOCAINE 2% 5ML JELLY UROJET TOP ONE ×2 (12:23→13:35)
[2024-05-28 12:49] LABS: BLOOD UREA NITROGEN 21 MG/DL (9-23); CALCIUM LEVEL 9.2 MG/DL (8.3-10.6); CARBON DIOXIDE LEVEL 23 MMOL/L (20-31); CHLORIDE LEVEL 101 MMOL/L (98-107); CREATININE FOR GFR 1.01 MG/DL (0.70-1.30); GLOMERULAR FILTRATION RATE > 60.0 (>35); GLUCOSE, FASTING 162 MG/DL (74-106); SODIUM LEVEL 140 MMOL/L (136-145)
[2024-05-28 12:51] LABS: INR 1.05; PARTIAL THROMBOPLASTIN TIME 31.7 SECONDS (24.8-34.2)
[2024-05-28 12:52] LABS: ATYPICAL LYMPH 1 % (0-5); GIANT PLATELETS 1+; LYMPHOCYTES 5 % (16-44); METAMYELOCYTES 1 % (0-0); MONOCYTES 4 % (0-5); NEUTROPHILS 82 % (28-66); PLATELET ESTIMATE NORMAL (NORMAL)
[2024-05-28 12:53] LABS: ANISOCYTOSIS 4+
[2024-05-28 12:57] LABS: HYPOCHROMASIA 1+
[2024-05-28 12:58] LABS: POIKILOCYTOSIS 2+; SCHISTOCYTES 2+
[2024-05-28 12:59] LABS: BURR CELLS 1+
[2024-05-28 13:03] LABS: APPEARANCE, URINE MANUAL TURBID (CLEAR); COLOR, URINE MANUAL BROWN (YELLOW); PROTEIN, URINE MANUAL 3+ mg/dL (NEGATIVE); SPECIFIC GRAVITY,URINE MANUAL 1.015 (1.002-1.035)
[2024-05-28 13:04] LABS: BILIRUBIN, URINE MANUAL OBSCURED (NEGATIVE); BLOOD URINE MANUAL POSITIVE (NEGATIVE); GLUCOSE, URINE (UA) MANUAL 4+(1000 MG/DL) mg/dL (NEGATIVE); KETONE, URINE MANUAL OBSCURED mg/dL (NEGATIVE); LEUKOCYTE ESTERASE, URINE MAN OBSCURED (NEGATIVE); NITRITE, URINE MANUAL OBSCURED (NEGATIVE); UROBILINOGEN, URINE MANUAL OBSCURED mg/dl (NORMAL)
[2024-05-28 13:10] LABS: BACTERIA, URINE NONE SEEN; HYALINE CAST, URINE NONE SEEN /lpf (0-1); RBC, URINE TNTC /hpf (0-3); SQUAMOUS EPITHELIAL CELL URINE NONE SEEN /hpf (SMALL AMT)
[2024-05-28] MEDS ORDERED: ACET-897 PO (14:32)
[2024-05-28] MEDS ORDERED: HOME MED LIST COMPLETE! XX SCH (14:35)
[2024-05-28] MEDS ORDERED: ACETAMINOPHEN 500 MG TAB PO PRN (15:30)
[2024-05-28] MEDS ORDERED: DEXTROSE 50% 50ML SYRINGE IV PRN (15:55)
[2024-05-28] MEDS ORDERED: GLUCAGON INJ 1MG VIAL SC PRN (15:55)
[2024-05-28] MEDS ORDERED: GLUCOSE 4 GM CHEW PO PRN (15:55)
[2024-05-28] MEDS: GABAPENTIN 300 MG CAP PO SCH (16:21)
[2024-05-28 17:30] VITALS: BP 117/50; TEMP 97.3
[2024-05-28] MEDS: INSULIN LISPRO (NovoLOG) PER UNIT SC SCH (17:30)
[2024-05-28 18:56] LABS: HEMATOCRIT 31.7 % (42.0-52.0); HEMOGLOBIN 9.3 g/dl (13.5-17.5); MEAN CORPUSCULAR HEMOGLOBIN 23.8 pg (27.0-33.0); MEAN CORPUSCULAR HGB CONC 29.3 g/dl (32.0-36.5); MEAN CORPUSCULAR VOLUME 81.3 fl (80.0-96.0); WHITE BLOOD COUNT 14.5 10^3/uL (4.0-10.0)
[2024-05-28 19:01] LABS: PLATELET COUNT, AUTOMATED 182 10^3/uL (150-450)
[2024-05-28] MEDS: cefTRIAXone SOD 1 GM in DEXTROSE 5% (D5W) ADV/MINI-BAG 50 ML IV SCH (20:31)
[2024-05-28] MEDS: KETOROLAC 30 MG/ML 1ML VIAL IV ONE (20:32)
[2024-05-28 20:33] VITALS: BP 139/54; TEMP 97.9; O2SAT 96
[2024-05-28] MEDS: MIRALAX *UNIT DOSE* 17GM PACKET PO SCH (20:35)
[2024-05-28] MEDS: atenoloL 50 MG TAB PO SCH (20:35)
[2024-05-28] MEDS: DONEPEZIL 5 MG TAB PO SCH (20:35)
[2024-05-28] MEDS: MEMANTINE 5MG TABLET (NAMENDA) PO SCH (20:35)
[2024-05-28] MEDS: ATORVASTATIN 20 MG TAB PO SCH (20:36)
[2024-05-28] MEDS: TAMSULOSIN 0.4 MG CAP PO ONE (23:24)
[2024-05-29] VITALS (17 sets, daily range): BP systolic 86–117; BP diastolic 37–62; TEMP 97.3–98.1; O2SAT 94–98
[2024-05-29 00:50] LABS: HEMATOCRIT 27.8 % (42.0-52.0); HEMOGLOBIN 8.3 g/dl (13.5-17.5); MEAN CORPUSCULAR HEMOGLOBIN 24.5 pg (27.0-33.0); MEAN CORPUSCULAR HGB CONC 29.9 g/dl (32.0-36.5); PLATELET COUNT, AUTOMATED 156 10^3/uL (150-450); RED BLOOD COUNT 3.39 10^6/uL (4.30-6.10); WHITE BLOOD COUNT 15.5 10^3/uL (4.0-10.0)
[2024-05-29 06:02] LABS: HEMATOCRIT 26.3 % (42.0-52.0); HEMOGLOBIN 7.7 g/dl (13.5-17.5); MEAN CORPUSCULAR HGB CONC 29.3 g/dl (32.0-36.5); MEAN CORPUSCULAR VOLUME 81.9 fl (80.0-96.0); PLATELET COUNT, AUTOMATED 147 10^3/uL (150-450); RED BLOOD COUNT 3.21 10^6/uL (4.30-6.10); WHITE BLOOD COUNT 14.7 10^3/uL (4.0-10.0)
[2024-05-29 06:34] LABS: BLOOD UREA NITROGEN 25 MG/DL (9-23); CALCIUM LEVEL 8.8 MG/DL (8.3-10.6); CARBON DIOXIDE LEVEL 23 MMOL/L (20-31); CHLORIDE LEVEL 111 MMOL/L (98-107); CREATININE FOR GFR 1.05 MG/DL (0.70-1.30); GLOMERULAR FILTRATION RATE > 60.0 (>35); GLUCOSE, FASTING 154 MG/DL (74-106); POTASSIUM SERUM 4.8 MMOL/L (3.5-5.1); SODIUM LEVEL 146 MMOL/L (136-145)
[2024-05-29] MEDS: SENNA 8.6 MG TAB (SENOKOT) PO SCH (09:00)
[2024-05-29] MEDS: BISACODYL 10MG SUPP PR SCH (09:00)
[2024-05-29] MEDS: ESCITALOPRAM OXALATE 10 MG TAB (LEXAPRO) PO SCH (09:00)
[2024-05-29] MEDS: FERROUS SULFATE 325MG TAB PO SCH (09:00)
[2024-05-29 14:19] LABS: HEMATOCRIT 29.2 % (42.0-52.0); MEAN CORPUSCULAR HEMOGLOBIN 25.5 pg (27.0-33.0); MEAN CORPUSCULAR HGB CONC 30.8 g/dl (32.0-36.5); MEAN CORPUSCULAR VOLUME 82.7 fl (80.0-96.0); PLATELET COUNT, AUTOMATED 141 10^3/uL (150-450); RED BLOOD COUNT 3.53 10^6/uL (4.30-6.10); WHITE BLOOD COUNT 17.4 10^3/uL (4.0-10.0)
[2024-05-29] MEDS ORDERED: propofoL 200 MG/20 ML VIAL As Ordered ONE (16:12)
[2024-05-29] MEDS ORDERED: fentaNYL 100 MCG/2 ML INJECTION As Ordered ONE (16:12)
[2024-05-29] MEDS ORDERED: LIDOCAINE 2% 100MG/5ML SDV (FOR ANES.) As Ordered ONE (16:12)
[2024-05-29] MEDS ORDERED: ONDANSETRON 4MG 2ML VIAL As Ordered ONE (16:12)
[2024-05-29] MEDS ORDERED: ePHEDrine SULFATE 25 MG/5 ML(5MG/ML) SYRINGE As Ordered ONE (16:46)
[2024-05-29] MEDS ORDERED: dexmedeTOMIDine (4MCG/ML)200MCG/50ML BTL (PRECEDEX) As Ordered ONE (17:01)
[2024-05-29 19:18] LABS: HEMATOCRIT 31.6 % (42.0-52.0); HEMOGLOBIN 9.5 g/dl (13.5-17.5); MEAN CORPUSCULAR HEMOGLOBIN 24.8 pg (27.0-33.0); MEAN CORPUSCULAR HGB CONC 30.1 g/dl (32.0-36.5); MEAN CORPUSCULAR VOLUME 82.5 fl (80.0-96.0); PLATELET COUNT, AUTOMATED 156 10^3/uL (150-450); RED BLOOD COUNT 3.83 10^6/uL (4.30-6.10); WHITE BLOOD COUNT 18.5 10^3/uL (4.0-10.0)
[2024-05-30] VITALS (8 sets, daily range): BP systolic 104–112; BP diastolic 50–58; TEMP 97.3–98.4; O2SAT 94–98
[2024-05-30 00:34] LABS: HEMATOCRIT 27.5 % (42.0-52.0); HEMOGLOBIN 8.5 g/dl (13.5-17.5); MEAN CORPUSCULAR HEMOGLOBIN 24.9 pg (27.0-33.0); MEAN CORPUSCULAR HGB CONC 30.9 g/dl (32.0-36.5); MEAN CORPUSCULAR VOLUME 80.4 fl (80.0-96.0); PLATELET COUNT, AUTOMATED 137 10^3/uL (150-450); RED BLOOD COUNT 3.42 10^6/uL (4.30-6.10)
[2024-05-30 01:06] LABS: WHITE BLOOD COUNT 19.3 10^3/uL (4.0-10.0)
[2024-05-30] MEDS: FINASTERIDE 5MG TAB PO SCH (08:05)
[2024-05-30 09:31] LABS: HEMATOCRIT 27.5 % (42.0-52.0); HEMOGLOBIN 8.5 g/dl (13.5-17.5); MEAN CORPUSCULAR HEMOGLOBIN 24.9 pg (27.0-33.0); MEAN CORPUSCULAR HGB CONC 30.9 g/dl (32.0-36.5); MEAN CORPUSCULAR VOLUME 80.4 fl (80.0-96.0); PLATELET COUNT, AUTOMATED 150 10^3/uL (150-450); RED BLOOD COUNT 3.42 10^6/uL (4.30-6.10); WHITE BLOOD COUNT 19.4 10^3/uL (4.0-10.0)
[2024-05-30 10:19] LABS: BLOOD UREA NITROGEN 24 MG/DL (9-23); CALCIUM LEVEL 8.3 MG/DL (8.3-10.6); CARBON DIOXIDE LEVEL 27 MMOL/L (20-31); CHLORIDE LEVEL 104 MMOL/L (98-107); CREATININE FOR GFR 0.98 MG/DL (0.70-1.30); GLOMERULAR FILTRATION RATE > 60.0 (>35); GLUCOSE, FASTING 172 MG/DL (74-106); POTASSIUM SERUM 3.8 MMOL/L (3.5-5.1); SODIUM LEVEL 141 MMOL/L (136-145)
[2024-05-30 10:49] LABS: ANISOCYTOSIS 2+; ATYPICAL LYMPH 1 % (0-5); LYMPHOCYTES 6 % (16-44); METAMYELOCYTES 2 % (0-0); MONOCYTES 6 % (0-5); NEUTROPHILS 76 % (28-66); PLATELET ESTIMATE NORMAL (NORMAL); POIKILOCYTOSIS 1+; POLYCHROMASIA 1+
[2024-05-30 10:53] LABS: SCHISTOCYTES 1+
[2024-05-30 11:35] LABS: HEMATOCRIT 26.3 % (42.0-52.0); HEMOGLOBIN 8.2 g/dl (13.5-17.5); MEAN CORPUSCULAR HEMOGLOBIN 25.2 pg (27.0-33.0); MEAN CORPUSCULAR HGB CONC 31.2 g/dl (32.0-36.5); MEAN CORPUSCULAR VOLUME 80.7 fl (80.0-96.0); PLATELET COUNT, AUTOMATED 128 10^3/uL (150-450); RED BLOOD COUNT 3.26 10^6/uL (4.30-6.10); WHITE BLOOD COUNT 18.8 10^3/uL (4.0-10.0)
[2024-05-30 12:05] LABS: LYMPH % 5.6 % (24.0-44.0); MONO % 13.1 % (2.0-8.0); NEUTROPHILS % 78.8 % (36.0-66.0)
[2024-05-30 12:06] LABS: BASO # 0.1 10^3/uL (0.0-0.2); BASO % 0.3 % (0.0-1.0); EOS # 0.2 10^3/uL (0.0-0.5); EOS % 1.3 % (0.0-3.0); LYMPH # 1.1 10^3/uL (1.5-5.0); MONO # 2.5 10^3/uL (0.0-0.8); NEUTROPHILS # 14.8 10^3/uL (1.5-8.5)
[2024-05-30 17:50] LABS: HEMATOCRIT 28.6 % (42.0-52.0); HEMOGLOBIN 8.7 g/dl (13.5-17.5); MEAN CORPUSCULAR HEMOGLOBIN 24.8 pg (27.0-33.0); MEAN CORPUSCULAR HGB CONC 30.4 g/dl (32.0-36.5); MEAN CORPUSCULAR VOLUME 81.5 fl (80.0-96.0); PLATELET COUNT, AUTOMATED 135 10^3/uL (150-450); RED BLOOD COUNT 3.51 10^6/uL (4.30-6.10); WHITE BLOOD COUNT 15.8 10^3/uL (4.0-10.0)
[2024-05-31 04:22] VITALS: BP 102/51; TEMP 98.2; O2SAT 95
[2024-05-31 08:00] VITALS: BP 110/56; TEMP 97.8; O2SAT 97
[2024-05-31 08:25] LABS: HEMATOCRIT 29.5 % (42.0-52.0); HEMOGLOBIN 9.1 g/dl (13.5-17.5); MEAN CORPUSCULAR HEMOGLOBIN 24.7 pg (27.0-33.0); MEAN CORPUSCULAR HGB CONC 30.8 g/dl (32.0-36.5); MEAN CORPUSCULAR VOLUME 80.2 fl (80.0-96.0); PLATELET COUNT, AUTOMATED 144 10^3/uL (150-450); RED BLOOD COUNT 3.68 10^6/uL (4.30-6.10); WHITE BLOOD COUNT 12.8 10^3/uL (4.0-10.0)
[2024-05-31 08:52] LABS: BLOOD UREA NITROGEN 18 MG/DL (9-23); CALCIUM LEVEL 8.1 MG/DL (8.3-10.6); CARBON DIOXIDE LEVEL 28 MMOL/L (20-31); CHLORIDE LEVEL 105 MMOL/L (98-107); CREATININE FOR GFR 0.96 MG/DL (0.70-1.30); GLOMERULAR FILTRATION RATE > 60.0 (>35); GLUCOSE, FASTING 156 MG/DL (74-106); POTASSIUM SERUM 4.2 MMOL/L (3.5-5.1); SODIUM LEVEL 144 MMOL/L (136-145)
[2024-05-31] MEDS: CEFDINIR 300 MG CAP (OMNICEF) PO SCH (11:05)
[2024-05-31] MEDS ORDERED: CEFD300CAP PO (11:14)
[2024-05-31 11:45] VITALS: BP 101/51; TEMP 97.9; O2SAT 99
[2024-05-31 12:00] VITALS: BP 101/51; TEMP 97.9; O2SAT 99
== END 2024-05-31 14:05 | disposition home health service (06) | DRG 664 ==
LOC: M ED 11:23 → M ED INP 15:45 → M MS5PR 17:24
PROVIDERS: ADMIT Student in an Organized Health Care Education/Training Program; ATTEND Internal Medicine
PROC: 0TCB8ZZ Extirpation of Matter from Bladder, Via Natural or Artificial Opening Endoscopic (ICD-10-PCS; 2024-05-29)
PROC: 0W3R8ZZ Control Bleeding in Genitourinary Tract, Via Natural or Artificial Opening Endoscopic (ICD-10-PCS; principal; 2024-05-29 16:00)
DX: N30.41 Irradiation cystitis with hematuria (principal); N52.35 Erectile dysfunction following radiation therapy; F32.A Depression, unspecified; F41.9 Anxiety disorder, unspecified; I25.10 Atherosclerotic heart disease of native coronary artery without angina pectoris; I10 Essential (primary) hypertension; E78.5 Hyperlipidemia, unspecified; E11.42 Type 2 diabetes mellitus with diabetic polyneuropathy; D50.9 Iron deficiency anemia, unspecified; G30.9 Alzheimer's disease, unspecified; F03.90 Unspecified dementia, unspecified severity, without behavioral disturbance, psychotic disturbance, mood disturbance, and anxiety; N39.41 Urge incontinence; Z66 Do not resuscitate; Z85.46 Personal history of malignant neoplasm of prostate; Z92.3 Personal history of irradiation; Z85.828 Personal history of other malignant neoplasm of skin; Z98.41 Cataract extraction status, right eye; Z98.42 Cataract extraction status, left eye; R33.9 Retention of urine, unspecified; Z95.1 Presence of aortocoronary bypass graft; N40.1 Benign prostatic hyperplasia with lower urinary tract symptoms; Z79.82 Long term (current) use of aspirin; Z79.899 Other long term (current) drug therapy; Z91.041 Radiographic dye allergy status; Z91.048 Other nonmedicinal substance allergy status

== ENCOUNTER → 2024-06-05 | Outpatient (REF) | payer MEDICARE, BC ==
[~2024-06-05] MED LIST changes: +ACET-897 PO; +CEFD300CAP PO
[2024-06-05 17:37] LABS: HEMOGLOBIN 10.2 g/dl (13.5-17.5); MEAN CORPUSCULAR HEMOGLOBIN 24.8 pg (27.0-33.0); MEAN CORPUSCULAR HGB CONC 29.1 g/dl (32.0-36.5); PLATELET COUNT, AUTOMATED 171 10^3/uL (150-450); RED BLOOD COUNT 4.12 10^6/uL (4.30-6.10); WHITE BLOOD COUNT 10.1 10^3/uL (4.0-10.0)
[2024-06-05 17:54] LABS: BLOOD UREA NITROGEN 14 MG/DL (9-23); CALCIUM LEVEL 8.7 MG/DL (8.3-10.6); CARBON DIOXIDE LEVEL 29 MMOL/L (20-31); CHLORIDE LEVEL 105 MMOL/L (98-107); CREATININE FOR GFR 0.83 MG/DL (0.70-1.30); GLOMERULAR FILTRATION RATE > 60.0 (>35); GLUCOSE, FASTING 166 MG/DL (74-106); POTASSIUM SERUM 4.2 MMOL/L (3.5-5.1); SODIUM LEVEL 141 MMOL/L (136-145)
[2024-06-05 19:12] LABS: ATYPICAL LYMPH 4 % (0-5); BASOPHILS 2 % (0-1); LYMPHOCYTES 9 % (16-44); MONOCYTES 8 % (0-5); NEUTROPHILS 77 % (28-66)
[2024-06-05 19:13] LABS: ANISOCYTOSIS 4+; PLATELET ESTIMATE NORMAL (NORMAL); POIKILOCYTOSIS 3+
[2024-06-05 19:14] LABS: MICROCYTOSIS 2+; SCHISTOCYTES 2+
[2024-06-05 19:16] LABS: OVALOCYTES 1+
== END ==
LOC: M SFHCADAM 13:43
PROVIDERS: ATTEND Physician Assistant
DX: D50.0 Iron deficiency anemia secondary to blood loss (chronic) (principal)

== ENCOUNTER → 2024-06-27 | Outpatient (CLI) | payer MEDICARE, BC ==
[2024-06-27 18:04] LABS: ALKALINE PHOSPHATASE 48 U/L (40-129); ALT/SGPT < 9 U/L (7.0-40); AST/SGOT < 8 U/L (<34); BILIRUBIN,TOTAL 0.6 MG/DL (0.3-1.2); BLOOD UREA NITROGEN 15 MG/DL (9-23); CALCIUM LEVEL 8.3 MG/DL (8.3-10.6); CARBON DIOXIDE LEVEL 29 MMOL/L (20-31); CHLORIDE LEVEL 105 MMOL/L (98-107); CREATININE FOR GFR 0.83 MG/DL (0.70-1.30); GLOMERULAR FILTRATION RATE > 60.0 (>35); GLUCOSE, FASTING 175 MG/DL (74-106); POTASSIUM SERUM 4.2 MMOL/L (3.5-5.1); SODIUM LEVEL 142 MMOL/L (136-145); TOTAL PROTEIN 6.4 G/DL (5.7-8.2)
[2024-06-27 18:05] LABS: HEMATOCRIT 32.6 % (42.0-52.0); HEMOGLOBIN 9.1 g/dl (13.5-17.5); MEAN CORPUSCULAR HEMOGLOBIN 23.6 pg (27.0-33.0); MEAN CORPUSCULAR HGB CONC 27.9 g/dl (32.0-36.5); MEAN CORPUSCULAR VOLUME 84.7 fl (80.0-96.0); PLATELET COUNT, AUTOMATED 168 10^3/uL (150-450); RED BLOOD COUNT 3.85 10^6/uL (4.30-6.10); WHITE BLOOD COUNT 8.3 10^3/uL (4.0-10.0)
== END ==
LOC: M WUC 12:06
PROVIDERS: ATTEND Internal Medicine Cardiovascular Disease
DX: I50.32 Chronic diastolic (congestive) heart failure (principal); I25.10 Atherosclerotic heart disease of native coronary artery without angina pectoris; I34.0 Nonrheumatic mitral (valve) insufficiency; I11.0 Hypertensive heart disease with heart failure

== ENCOUNTER → 2024-07-17 | Outpatient (REF) | payer MEDICARE, BC | LOC: M SMT 15:02 | PROVIDERS: ATTEND Physician Assistant | DX: R19.7 Diarrhea, unspecified (principal) ==

== ENCOUNTER 2024-07-20 14:46 | Emergency (ER) | payer MEDICARE, BC ==
[~2024-07-20] VITALS: Ht 177.8 cm; Wt 64.9 kg
[2024-07-20 16:22] LABS: HEMATOCRIT 32.2 % (42.0-52.0); HEMOGLOBIN 9.2 g/dl (13.5-17.5); MEAN CORPUSCULAR HEMOGLOBIN 23.7 pg (27.0-33.0); MEAN CORPUSCULAR HGB CONC 28.6 g/dl (32.0-36.5); MEAN CORPUSCULAR VOLUME 82.8 fl (80.0-96.0); PLATELET COUNT, AUTOMATED 179 10^3/uL (150-450); RED BLOOD COUNT 3.89 10^6/uL (4.30-6.10)
[2024-07-20 16:45] LABS: BLOOD UREA NITROGEN 20 MG/DL (9-23); CALCIUM LEVEL 8.8 MG/DL (8.3-10.6); CARBON DIOXIDE LEVEL 25 MMOL/L (20-31); CHLORIDE LEVEL 104 MMOL/L (98-107); CREATININE FOR GFR 0.83 MG/DL (0.70-1.30); GLOMERULAR FILTRATION RATE > 60.0 (>35); GLUCOSE, FASTING 141 MG/DL (74-106); POTASSIUM SERUM 4.2 MMOL/L (3.5-5.1); SODIUM LEVEL 142 MMOL/L (136-145)
[2024-07-20] MEDS: NS 500 ML IV ONE (17:04)
[2024-07-20 17:19] LABS: ATYPICAL LYMPH 5 % (0-5); EOSINOPHILS 4 % (0-3); LYMPHOCYTES 29 % (16-44); MONOCYTES 7 % (0-5); NEUTROPHILS 55 % (28-66); PLATELET ESTIMATE NORMAL (NORMAL)
[2024-07-20 17:20] LABS: ANISOCYTOSIS 4+; POLYCHROMASIA 1+
[2024-07-20 18:31] VITALS: TEMP 97.6
[2024-07-20 18:53] VITALS: BP 128/62; O2SAT 97
[2024-07-20] MEDS ORDERED: DULC10SU2 PR (18:54)
[2024-07-20] MEDS ORDERED: SIME1CAP4 PO (18:54)
[2024-07-20 19:41] LABS: KETONE, URINE AUTO RFX 1+ mg/dL (NEGATIVE); LEUKOCYTE ESTERASE UR AUTO RFX NEGATIVE (NEGATIVE); MUCUS, URINE RFX SMALL (NEGATIVE); NITRITE, URINE AUTO RFX NEGATIVE (NEGATIVE); RBC, URINE AUTO RFX 2 /HPF (0-3); SQUAM EPITHELIAL CELL UR AURFX 0 /HPF (0-6); WBC, URINE AUTO RFX 4 /HPF (0-3)
== END 2024-07-20 19:25 | disposition home or self-care (01) ==
LOC: M ED 14:46
DX: K56.7 Ileus, unspecified (principal); Z87.19 Personal history of other diseases of the digestive system; Z79.899 Other long term (current) drug therapy; Z88.3 Allergy status to other anti-infective agents; Z91.041 Radiographic dye allergy status

== ENCOUNTER → 2024-07-28 | Outpatient (REF) | payer MEDICARE, BC ==
[~2024-07-28] MED LIST changes: +DULC10SU2 PR; +SIME1CAP4 PO
[2024-07-28 19:27] LABS: BLOOD UREA NITROGEN 16 MG/DL (9-23); CALCIUM LEVEL 8.9 MG/DL (8.3-10.6); CARBON DIOXIDE LEVEL 28 MMOL/L (20-31); CHLORIDE LEVEL 104 MMOL/L (98-107); GLOMERULAR FILTRATION RATE > 60.0 (>35); GLUCOSE, FASTING 178 MG/DL (74-106); POTASSIUM SERUM 4.1 MMOL/L (3.5-5.1); SODIUM LEVEL 140 MMOL/L (136-145)
[2024-07-28 19:50] LABS: HEMOGLOBIN A1c 5.6 % (4.0-6.0)
== END ==
LOC: M SFHCADAM 13:45
PROVIDERS: ATTEND Family Medicine
DX: E11.8 Type 2 diabetes mellitus with unspecified complications (principal)

== ENCOUNTER 2024-11-04 16:10 | Observation (INO) | payer MEDICARE, BC ==
[~2024-11-04] VITALS: Ht 177.8 cm; Wt 60.8 kg
[2024-11-04] MEDS: MIRALAX *UNIT DOSE* 17 GM PACKET PO SCH (09:00)
[~2024-11-04 16:10] MED LIST changes: +AZIT-12 PO; +LIDO1ADH93 TOP; -LIDO5DIS41 TOP; +SIME1CAP3 PO; +SIME80CH6 PO
[2024-11-04] MEDS: NS (Normal Saline) 0.9% 1,000 ML IV SCH (17:05)
[2024-11-04 17:34] LABS: BASO # 0.1 10^3/uL (0.0-0.2); BASO % 0.7 % (0.0-1.0); EOS # 0.0 10^3/uL (0.0-0.5); EOS % 0.4 % (0.0-3.0); LYMPH # 0.8 10^3/uL (1.5-5.0); LYMPH % 8.4 % (24.0-44.0); MONO # 1.2 10^3/uL (0.0-0.8); MONO % 13.2 % (2.0-8.0); NEUTROPHILS # 7.0 10^3/uL (1.5-8.5); NEUTROPHILS % 76.3 % (36.0-66.0); PLATELET COUNT, AUTOMATED 184 10^3/uL (150-450)
[2024-11-04 17:49] LABS: ALT/SGPT 10.0 U/L (7.0-40); AST/SGOT 14.0 U/L (<34); CALCIUM LEVEL 8.4 MG/DL (8.3-10.6); CARBON DIOXIDE LEVEL 28.0 MMOL/L (20-31); CHLORIDE LEVEL 104.0 MMOL/L (98-107); CREATININE FOR GFR 0.72 MG/DL (0.70-1.30); GLOMERULAR FILTRATION RATE 89.0 (>35); POTASSIUM SERUM 3.5 MMOL/L (3.5-5.1); SODIUM LEVEL 142.0 MMOL/L (136-145)
[2024-11-04] MEDS ORDERED: LOPE2TAB12 PO (17:54)
[2024-11-04] MEDS ORDERED: HOME MED LIST COMPLETE! XX SCH (17:55)
[2024-11-04] MEDS ORDERED: BISACODYL 10 MG SUPP PR PRN (18:20)
[2024-11-04] MEDS ORDERED: SENNA 8.6 MG TAB PO PRN (18:20)
[2024-11-04] MEDS ORDERED: ONDANSETRON 4MG 2ML VIAL IV PRN (18:55)
[2024-11-04] MEDS: DOCUSATE SODIUM 100 MG CAPSULE PO ONE (19:26)
[2024-11-04] MEDS ORDERED: DEXTROSE 50% 50 ML SYRINGE IV PRN (21:20)
[2024-11-04] MEDS ORDERED: ACETAMINOPHEN 500 MG TAB PO PRN (21:20)
[2024-11-04] MEDS ORDERED: GLUCAGON INJ 1 MG VIAL SC PRN (21:20)
[2024-11-04] MEDS ORDERED: GLUCOSE 4 GM CHEW PO PRN (21:20)
[2024-11-04] MEDS: GABAPENTIN 300 MG CAP PO SCH (21:59)
[2024-11-04] MEDS: ATORVASTATIN 20 MG TAB PO SCH (22:00)
[2024-11-04 22:14] VITALS: BP 131/96; TEMP 97.6; O2SAT 96
[2024-11-04] MEDS: DONEPEZIL 5 MG TAB PO SCH (22:38)
[2024-11-04] MEDS: MEMANTINE 5 MG TABLET PO SCH (22:38)
[2024-11-05 04:00] VITALS: BP 128/84; TEMP 97.4; O2SAT 95
[2024-11-05 06:39] LABS: PLATELET COUNT, AUTOMATED 176 10^3/uL (150-450)
[2024-11-05 07:01] LABS: CALCIUM LEVEL 8.3 MG/DL (8.3-10.6); CARBON DIOXIDE LEVEL 30.0 MMOL/L (20-31); CHLORIDE LEVEL 105.0 MMOL/L (98-107); CREATININE FOR GFR 0.71 MG/DL (0.70-1.30); GLOMERULAR FILTRATION RATE 89.4 (>35); MAGNESIUM LEVEL 1.7 MG/DL (1.8-2.4); POTASSIUM SERUM 3.3 MMOL/L (3.5-5.1); SODIUM LEVEL 143.0 MMOL/L (136-145)
[2024-11-05] MEDS: INSULIN LISPRO (NovoLOG) PER UNIT SC SCH (07:30)
[2024-11-05] MEDS: MAG SULF 1GM/100ML (MAG RUN) 1 GM in IV 1 EA IV SCH (07:54)
[2024-11-05] MEDS: ENOXAPARIN 40 MG/0.4 ML SYRINGE (J1650 PER 10MG) SC SCH (07:58)
[2024-11-05] MEDS: POTASSIUM CHLORIDE 10MEQ SR TABLET PO ONE (07:59)
[2024-11-05] MEDS: FINASTERIDE 5 MG TAB PO SCH (08:00)
[2024-11-05] MEDS: ESCITALOPRAM OXALATE 10 MG TABLET PO SCH (08:00)
[2024-11-05] MEDS: ASPIRIN 81 MG ENTERIC TABLET PO SCH (08:00)
[2024-11-05] MEDS: ACETAMINOPHEN 325 MG TAB PO PRN (08:01)
[2024-11-05] MEDS ORDERED: COLA100C5 PO (12:12)
[2024-11-05] MEDS ORDERED: MIRA3350 PO (12:12)
[2024-11-05] MEDS ORDERED: KCL 40MEQ IN D5/NS 1000ML 1,000 ML IV SCH (13:00)
[2024-11-05] MEDS ORDERED: INSULIN LISPRO (NovoLOG) PER UNIT SC SCH (21:00)
== END 2024-11-05 13:25 | disposition home or self-care (01) ==
LOC: M ED 16:10 → M ED INP 16:11 → M MS4PR 22:27
PROVIDERS: ADMIT Internal Medicine; ATTEND Internal Medicine
DX: K59.09 Other constipation (principal); Z85.46 Personal history of malignant neoplasm of prostate; Z92.3 Personal history of irradiation; E11.42 Type 2 diabetes mellitus with diabetic polyneuropathy; I25.10 Atherosclerotic heart disease of native coronary artery without angina pectoris; G30.9 Alzheimer's disease, unspecified; F02.80 Dementia in other diseases classified elsewhere, unspecified severity, without behavioral disturbance, psychotic disturbance, mood disturbance, and anxiety; N40.0 Benign prostatic hyperplasia without lower urinary tract symptoms; Z95.5 Presence of coronary angioplasty implant and graft; F32.A Depression, unspecified; F41.9 Anxiety disorder, unspecified; I10 Essential (primary) hypertension; E78.5 Hyperlipidemia, unspecified; D50.9 Iron deficiency anemia, unspecified; Z98.41 Cataract extraction status, right eye; Z98.42 Cataract extraction status, left eye; Z87.891 Personal history of nicotine dependence; K62.7 Radiation proctitis; Z79.82 Long term (current) use of aspirin; Z79.899 Other long term (current) drug therapy; Z88.8 Allergy status to other drugs, medicaments and biological substances; Z91.041 Radiographic dye allergy status
CPT/HCPCS: 36415; 74018; 74176; 80048; 80076; 83605; 83690; 83735; 85025; 85027; 93005; 93041; 96360; 96361; 96372; 99285; G0378; J1650; J3475

== ENCOUNTER 2024-11-18 21:02 | Emergency (ER) | payer MEDICARE, BC ==
[~2024-11-18 21:02] MED LIST changes: +COLA100C5 PO; +LOPE2TAB12 PO; +MIRA3350 PO
[2024-11-18] MEDS ORDERED: ATEN25TA PO (21:38)
[2024-11-18] MEDS ORDERED: DULO1CAP4 (21:38)
[2024-11-18 22:04] LABS: PLATELET COUNT, AUTOMATED 178 10^3/uL (150-450)
[2024-11-18 22:20] LABS: CK-MB VALUE MASS 2.0 NG/ML (<3.6)
[2024-11-18 22:21] LABS: CALCIUM LEVEL 8.4 MG/DL (8.3-10.6); CARBON DIOXIDE LEVEL 22.0 MMOL/L (20-31); CHLORIDE LEVEL 100.0 MMOL/L (98-107); CPK CREATINE PHOSPHOKINASE 26.0 U/L (46-171); CREATININE FOR GFR 0.92 MG/DL (0.70-1.30); GLOMERULAR FILTRATION RATE 81.0 (>35); MAGNESIUM LEVEL 2.0 MG/DL (1.8-2.4); MB/CK RELATIVE INDEX 7.69 (< OR =4); POTASSIUM SERUM 4.4 MMOL/L (3.5-5.1); SODIUM LEVEL 141.0 MMOL/L (136-145)
[2024-11-18 22:23] LABS: FREE T4 1.2 NG/DL (0.89-1.76); INR 1.23
[2024-11-18 23:27] LABS: LYMPHOCYTES 7 % (16-44); MONOCYTES 4 % (0-5); NEUTROPHILS 83 % (28-66); PLATELET ESTIMATE NORMAL (NORMAL)
[2024-11-19] MEDS ORDERED: metroNIDAZOLE 500 MG in IV 1 EA IV ONE (00:35)
[2024-11-19] MEDS: PIPERACILLIN/TAZOBACTAM SOD 3.375 GM in DEXTROSE 5% (D5W) ADV/MINI-BAG 50 ML IV ONE (01:59)
[2024-11-19] MEDS: NS (Normal Saline) 0.9% 1,000 ML IV STA (01:59)
[2024-11-19] MEDS: NS (Normal Saline) 0.9% 1,000 ML IV ONE (02:08)
[2024-11-19 02:48] VITALS: BP 106/52; TEMP 98.3; O2SAT 96
== END 2024-11-19 02:58 | disposition short-term general hospital (02) ==
LOC: M ED 21:02 → EDBD 21:02 → M ED 11-19 02:58
DX: K55.9 Vascular disorder of intestine, unspecified (principal); K80.20 Calculus of gallbladder without cholecystitis without obstruction; K57.32 Diverticulitis of large intestine without perforation or abscess without bleeding; F03.90 Unspecified dementia, unspecified severity, without behavioral disturbance, psychotic disturbance, mood disturbance, and anxiety; Z79.82 Long term (current) use of aspirin; Z79.899 Other long term (current) drug therapy; Z88.3 Allergy status to other anti-infective agents; Z91.041 Radiographic dye allergy status
CPT/HCPCS: 70450; 71045; 74176; 80048; 82550; 82553; 83605; 83735; 84439; 84443; 84484; 85025; 85610; 85730; 93005; 93041; 94760; 96374; 99285; J2543